=== PATIENT | male | born 1950 | race Caucasian/White ===

== ENCOUNTER → 2016-06-10 | Outpatient (CLI) | payer BC ==
[~2016-06-10] MED LIST: ALLO300T2 PO; CIPR-255 PO; FLAX12003 PO; GLC500 PO; HYDR-5688 PO; LISI-788 PO
[2016-06-10 12:33] LABS: ALT/SGPT 159 U/L (12-78); AST/SGOT 100 U/L (15-37); BLOOD UREA NITROGEN 14 mg/dl (7-18); BUN/CREATININE RATIO 15.3 (10-20); CARBON DIOXIDE 29 mmol/L (21-32); CHLORIDE 100 mmol/L (98-107); CHOLESTEROL 166 mg/dl (0-200); CREATININE 0.93 mg/dl (0.60-1.40); GLUCOSE 186 mg/dl (70-99); POTASSIUM 3.8 mmol/L (3.5-5.1); SODIUM 137 mmol/L (136-145); TRIGLYCERIDES 362 mg/dl (0-150); URIC ACID 6.7 mg/dl (2.6-7.2); VERY LOW DENSITY LIPOPROT CALC 72 mg/dl
[2016-06-10 12:35] LABS: ALB/GLOB RATIO 1.3 (0.9-2); ALKALINE PHOSPHATASE 139 U/L (45-117); CHOLESTEROL/HDL RATIO 3.7; HDL CHOLESTEROL 45 mg/dl; LDL CHOLESTEROL CALCULATED 49 mg/dl
[2016-06-10 12:39] LABS: CALCIUM 10.2 mg/dl (8.5-10.1)
[2016-06-10 13:06] LABS: ESTIMATED AVERAGE GLUCOSE 160 mg/dl; HA1C FLAG Normal (Normal)
== END | disposition home or self-care (01) ==
LOC: C.LABPVFM 09:24
PROVIDERS: ATTEND Family Medicine
DX: M10.9 Gout, unspecified (principal); E78.5 Hyperlipidemia, unspecified; R73.01 Impaired fasting glucose; I10 Essential (primary) hypertension

== ENCOUNTER 2016-07-04 14:52 | Inpatient (IN) | payer BC ==
[~2016-07-04] VITALS: Ht 167.6 cm; Wt 103.4 kg
[2016-07-04] MEDS ORDERED: ALLO300T2 PO (15:19)
[2016-07-04] MEDS ORDERED: LISI-788 PO (15:19)
[2016-07-04] MEDS ORDERED: GLC500 PO (15:19)
[2016-07-04] MEDS ORDERED: FLAX12003 PO (15:19)
[2016-07-04 15:22] LABS: BASO % 0.5 %; BASO ABS # 0.05 K/uL (0-0.2); COMPLETE YES; EOS % 2.4 %; HEMATOCRIT 38.5 % (42-52); IG% 0.3 %; LYMPH % 18.7 %; MEAN CELL VOLUME 88.7 fL (80-100); MEAN CORPUSCULAR HEMOGLOBIN 33.2 pg (25-34); MEAN CORPUSCULAR HGB CONC 37.4 g/dl (32-36); MEAN PLATELET VOLUME 9.7 fL (7.4-10.4); MONO % 8.8 %; NEUT % 69.3 %; PLATELET COUNT 410 K/uL (130-400); RED BLOOD COUNT 4.34 M/uL (4.7-6.1); WHITE BLOOD COUNT 10.16 K/uL (4.8-10.8)
[2016-07-04] MEDS ORDERED: SODIUM CHLORIDE 0.9% 500ML 500 ML IV STA (15:27)
[2016-07-04] MEDS ORDERED: SODIUM CHLORIDE 0.9% 1000ML 1,000 ML IV STA (15:27)
[2016-07-04] MEDS ORDERED: OPTIRAY 320 IV PRN (16:00)
[2016-07-04 16:07] LABS: BUN/CREATININE RATIO 18.7 (10-20); CALCIUM 10.1 mg/dl (8.5-10.1); CREATININE 1.2 mg/dl (0.60-1.40); POTASSIUM 3.1 mmol/L (3.5-5.1)
--- NOTE | 2016-07-04 18:33 | DIAGNOSTIC IMAGING REPORT ---
ABDOMEN AND PELVIS CT WITH IV AND ORAL CONTRAST CT DOSE: 1329.04 mGy.cm HISTORY: painless jaundice TECHNIQUE: Multiaxial CT images of the abdomen and pelvis were performed following the use of intravenous and oral contrast. COMPARISON STUDY: None. FINDINGS: The lung bases are clear. No suspicious lytic or blastic osseous lesions. No hepatic or splenic masses. The adrenal glands are unremarkable. Normal left kidney. Subcentimeter hypodense lesion within the lower pole of the right kidney is too small to characterize. No hydronephrosis. There is an irregular hypodense area at the pancreatic head/neck which measures approximately 2.6 x 2.5 cm. There is abrupt caliber change of both the common bile duct and main pancreatic duct with proximal dilatation. There is also mild intrahepatic bile duct dilatation. Therefore, this is consistent with a pancreatic mass. This results in mild narrowing of the portal splenic confluence with approximately 50% encasement. The pancreatic tail is slightly atrophic. The gallbladder is distended. No gallbladder wall thickening. There are few mildly enlarged periportal/peripancreatic lymph nodes. Dominant lymph node measures 16 mm in short axis diameter. Small fat-containing umbilical hernia. The bladder is distended. No bowel wall thickening or obstruction. Normal appendix. IMPRESSION: 1. A 2.8 x 2.5 cm mass within the pancreatic head as described above. 2. There are 2 mildly enlarged periportal/peripancreatic lymph nodes which are highly suspicious for metastatic disease. 3. No hepatic masses. 4. Dilatation of the main pancreatic duct and common bile duct proximal to the pancreatic head mass. There is also a distended gallbladder. 5. Distended bladder. 6. The mass demonstrates approximately 50% encasement and mild narrowing of the portal splenic confluence. Electronically signed by: Reinier Little M.D. 07/04/2016 6:32 PM Dictated Date/Time: 07/04/2016 6:24 PM
[2016-07-04 20:04] LABS: URINE APPEARANCE CLEAR (CLEAR); URINE COLOR DK YELLOW; URINE NITRITE NEG (NEG); URINE PH 5.5 (4.5-7.5); URINE SPECIFIC GRAVITY 1.038 (1.000-1.030); UROBILINOGEN NEG (NEG); ZZUR CULT IF INDIC CLEAN CATCH NO
[2016-07-04 20:17] LABS: MANUAL MICROSCOPIC REQUIRED? NO; REVIEW REQ? NO; URINE BILIRUBIN 2+ (NEG)
[2016-07-04] MEDS ORDERED: PIPERACILLIN/TAZOBACTAM 4.5 GM/100ML D5W IV STA (20:33)
--- NOTE | 2016-07-04 22:27 | EMERGENCY ROOM VISIT NOTE ---
History Report prepared by Zia: Flor Christopher Under the Supervision of: Dr. Alessandro Begum M.D. First contact with patient: 14:59 Chief Complaint: REFERRED BY DOCTOR Stated Complaint: ELEVATED LIVER ENZYMES, JAUNDICE History of Present Illness The patient is a 66 year old male who presents to the Emergency Room with complaints of a sudden referral by his PCP that occurred [employer]. The patient saw his PCP and had blood work drawn. The blood work showed that his liver enzymes were elevated. His PCP called him and told him to come into the ED for further evaluation. The patient states that he first noticed he was jaundice one week ago, but really noticed scleral icterus 3 days ago. 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 Pt denies LOC, headache, fevers, chills, diaphoresis, visual changes , neck pain, chest pain, breathing difficulties, nausea, vomiting, abdominal pain, back pain, melena, hematochezia, urinary symptoms, numbness, weakness, lymphadenopathy, rash, or other complaints. He states that he has been trying to change his lifestyle to be healthier. The patient also recently started Metformin. He states that he has been watching his diet and that he is trying to stay away from sugar and bread. The patient also states that he has been walking and making sure to drink plenty of fluids. He has lost 20 lbs in the last 2 weeks. The patient has no complaints and states that this is the best that he has felt in a long time. The patient helps the [employer] for work, so he drives long distances quite frequently. He states that he got home from [place] 3 days ago in the morning and then left for [place] that evening. The patient denies using Tylenol recently and states that he tries to avoid medications. 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 A total of ten systems were reviewed and were otherwise negative. Past Medical & Surgical Surgical Problems: (1) History of hernia repair Family History No significant family history Social History Smoking Status: Never Smoker Marital Status: Housing Status: lives with family Occupation Status: employed Current/Historical Medications Scheduled Allopurinol (Zyloprim), 300 MG PO DAILY Flaxseed (Linseed) (Flaxseed Oil), 1 CAP PO DAILY Lisinopril/Hctz (Zestoretic 20MG/25MG), 1 TAB PO DAILY Metformin HCl (Metformin HCl), 1 TAB PO BID Allergies Coded Allergies: No Known Allergies (Unverified , 07/04/16) Physical Exam Vital Signs Date Time Temp Pulse Resp B/P Pulse Ox O2 Delivery O2 Flow Rate FiO2 07/04/16 21:20 68 18 137/78 95 Room Air 07/04/16 20:53 67 07/04/16 20:35 68 18 141/78 95 Room Air 07/04/16 20:04 64 18 138/81 95 Room Air 07/04/16 19:04 68 18 182/96 94 Room Air 07/04/16 18:25 68 20 149/85 95 Room Air 07/04/16 17:57 72 18 146/99 96 Room Air 07/04/16 16:37 66 16 130/82 94 Room Air 07/04/16 16:12 67 07/04/16 14:57 36.7 81 16 138/79 95 Room Air Physical Exam GENERAL: Awake, alert, well-appearing, in no distress HENT: Normocephalic, atraumatic. Oropharynx unremarkable. EYES: Normal conjunctiva. Sclera are icteric. NECK: Supple. No nuchal rigidity. FROM. No JVD. RESPIRATORY: Clear to auscultation. CARDIAC: Regular rate, normal rhythm. Extremities warm and well perfused. Pulses equal. ABDOMEN: Soft, non-distended. No tenderness to palpation. No rebound or guarding. No masses. RECTAL: Deferred. MUSCULOSKELETAL: Chest examination reveals no tenderness. The back is symmetrical on inspection without obvious abnormality. There is no CVA tenderness to palpation. No joint edema. LOWER EXTREMITIES: Calves are equal size bilaterally and non-tender. No edema. No discoloration. NEURO: Normal sensorium. No sensory or motor deficits noted. SKIN: Jaundice. No rash noted. Medical Decision & Procedures ER Provider Diagnostic Interpretation: Radiology results as stated below per my review and radiologist interpretation ABDOMEN AND PELVIS CT WITH IV AND ORAL CONTRAST FINDINGS: The lung bases are clear. No suspicious lytic or blastic osseous lesions. No hepatic or splenic masses. The adrenal glands are unremarkable. Normal left kidney. Subcentimeter hypodense lesion within the lower pole of the right kidney is too small to characterize. No hydronephrosis. There is an irregular hypodense area at the pancreatic head/neck which measures approximately 2.6 x 2.5 cm. There is abrupt caliber change of both the common bile duct and main pancreatic duct with proximal dilatation. There is also mild intrahepatic bile duct dilatation. Therefore, this is consistent with a pancreatic mass. This results in mild narrowing of the portal splenic confluence with approximately 50% encasement. The pancreatic tail is slightly atrophic. The gallbladder is distended. No gallbladder wall thickening. There are few mildly enlarged periportal/peripancreatic lymph nodes. Dominant lymph node measures 16 mm in short axis diameter. Small fat-containing umbilical hernia. The bladder is distended. No bowel wall thickening or obstruction. Normal appendix. IMPRESSION: 1. A 2.8 x 2.5 cm mass within the pancreatic head as described above. 2. There are 2 mildly enlarged periportal/peripancreatic lymph nodes which are highly suspicious for metastatic disease. 3. No hepatic masses. 4. Dilatation of the main pancreatic duct and common bile duct proximal to the pancreatic head mass. There is also a distended gallbladder. 5. Distended bladder. 6. The mass demonstrates approximately 50% encasement and mild narrowing of the portal splenic confluence. Electronically signed by: Reinier Little M.D. 07/04/2016 6:32 PM Dictated Date/Time: 07/04/2016 6:24 PM Laboratory Results 07/04/16 15:09 Red Blood Count 4.34, Mean Corpuscular Volume 88.7, Mean Corpuscular Hemoglobin 33.2, Mean Corpuscular Hemoglobin Concent 37.4, Mean Platelet Volume 9.7, Neutrophils (%) (Auto) 69.3, Lymphocytes (%) (Auto) 18.7, Monocytes (%) (Auto) 8.8, Eosinophils (%) (Auto) 2.4, Basophils (%) (Auto) 0.5, Neutrophils # (Auto) 7.05, Lymphocytes # (Auto) 1.90, Monocytes # (Auto) 0.89, Eosinophils # (Auto) 0.24, Basophils # (Auto) 0.05 07/04/16 15:09 Test 07/04/16 15:09 07/04/16 15:19 07/04/16 19:50 07/04/16 21:49 White Blood Count 10.16 K/uL (4.8-10.8) Red Blood Count 4.34 M/uL (4.7-6.1) Hemoglobin 14.4 g/dL (14.0-18.0) Hematocrit 38.5 % (42-52) Mean Corpuscular Volume 88.7 fL (80-100) Mean Corpuscular Hemoglobin 33.2 pg (25-34) Mean Corpuscular Hemoglobin Concent 37.4 g/dl (32-36) Platelet Count 410 K/uL (130-400) Mean Platelet Volume 9.7 fL (7.4-10.4) Neutrophils (%) (Auto) 69.3 % Lymphocytes (%) (Auto) 18.7 % Monocytes (%) (Auto) 8.8 % Eosinophils (%) (Auto) 2.4 % Basophils (%) (Auto) 0.5 % Neutrophils # (Auto) 7.05 K/uL (1.4-6.5) Lymphocytes # (Auto) 1.90 K/uL (1.2-3.4) Monocytes # (Auto) 0.89 K/uL (0.11-0.59) Eosinophils # (Auto) 0.24 K/uL (0-0.5) Basophils # (Auto) 0.05 K/uL (0-0.2) RDW Standard Deviation 45.7 fL (36.4-46.3) RDW Coefficient of Variation 13.9 % (11.5-14.5) Immature Granulocyte % (Auto) 0.3 % Immature Granulocyte # (Auto) 0.03 K/uL (0.00-0.02) Anion Gap 12.0 mmol/L (3-11) Est Creatinine Clear Calc Drug Dose 69.7 ml/min Estimated GFR () 73.6 Estimated GFR (Non- 63.5 BUN/Creatinine Ratio 18.7 (10-20) Calcium Level 10.1 mg/dl (8.5-10.1) Total Bilirubin 20.1 mg/dl (0.2-1) Direct Bilirubin 15.1 mg/dl (0-0.2) Aspartate Amino Transf (AST/SGOT) 186 U/L (15-37) Alanine Aminotransferase (ALT/SGPT) 468 U/L (12-78) Alkaline Phosphatase 431 U/L (45-117) Total Protein 7.3 gm/dl (6.4-8.2) Albumin 3.7 gm/dl (3.4-5.0) Lipase 580 U/L (73-393) Hepatitis B Surface Antigen NEG (NEG) Hepatitis C Antibody NEG (NEG) Urine Color DK YELLOW Urine Appearance CLEAR (CLEAR) Urine pH 5.5 (4.5-7.5) Urine Specific [place] 1.038 (1.000-1.030) Urine Protein NEG (NEG) Urine Glucose (UA) NEG (NEG) Urine Ketones NEG (NEG) Urine Occult Blood NEG (NEG) Urine Nitrite NEG (NEG) Urine Bilirubin 2+ (NEG) Urine Urobilinogen NEG (NEG) Urine Leukocyte Esterase NEG (NEG) Laboratory results reviewed by me Medications Administered Medications (Trade) Dose Ordered Sig/Nancy Route Start Time Stop Time Status Last Admin Dose Admin Sodium Chloride 1,000 ml @ 125 mls/hr Q8H STAT IV 07/04/16 15:27 07/04/16 23:26 07/04/16 15:27 125 MLS/HR Sodium Chloride (Nss 500ml) 500 ml @ 999 mls/hr Q31M STAT IV 07/04/16 15:27 07/04/16 15:57 DC 07/04/16 15:27 999 MLS/HR Piperacillin Sod/ Tazobactam Sod (Zosyn Iv) 4.5 gm NOW STAT IV 07/04/16 20:33 07/04/16 20:34 DC 07/04/16 20:40 4.5 GM ED Course 1525: The patient was evaluated in room C11. A complete history and physical exam was performed. 1527: Ordered Sodium Chloride 500 ml @ 999 mls/hr IV, Sodium Chloride 1000 ml @ 125 mls/hr IV 1908: Discussed the patient's case with Dr. Jarvis ABRAHAM. He recommends admitting the patient to medicine. He also recommends starting the patient on antibiotics and [facility]. 2018: Upon reexamination, the patient was resting comfortably. I discussed the test results and treatment plan with the patient and his family. The patient will be evaluated for further management. 2032: Ordered Zosyn 4.5 gm IV Medical Decision Triage Nursing notes reviewed. The patient's presentation and history were concerning for jaundice. Etiologies such as biliary pathology, pancreatitis, cholecystitis, medication induced, hepatitis, obstruction, PUD, mesenteric ischemia, infections, genitourinary, as well as others were entertained. The patient presents with painless jaundice. He had blood work obtained. CT imaging was performed. Patient was found to have an unremarkable CBC. He is minimally hypokalemic. Total bili, AST, ALT, lipase, and alkaline phosphatase were all markedly elevated. CT imaging revealed a pancreatic mass and obstructive findings. This is concerning for cancer. I discussed this with the patient and family at length. I did discuss this case with Dr. salcedo of gastroenterology. He recommended the patient be admitted for IV antibiotics and he will discuss the issue with [facility] gastroenterology for possible ERCP and EUS. Consultation was made with internal medicine. The patient was given IV Zosyn. He was hydrated. The patient was evaluated in the emergency department for further management of his obstructive jaundice and pancreatic mass. The chart was completed utilizing [employer] Speech voice recognition software. Grammatical errors, random word insertions, pronoun errors, and incomplete sentences are an occasional consequence of this system due to software limitations, ambient noise, and hardware issues. Any formal questions or concerns about the content, text, or information contained within the body of this dictation should be directly addressed to the physician for clarification. Consults Time Called: 1904 Consulting Physician: Dr. Jarvis ABRAHAM Returned Call: 1907 Discussed the patient's case with Dr. Jarvis ABRAHAM. He recommends starting the patient on antibiotics and he is going to call [facility] to setup an endoscopy for the patient. Additional Consults: Time Called: 2021 Consulted Physician: Dr. Heck Impression Primary Impression: Obstructive jaundice Additional Impression: Pancreatic mass Scribe Attestation The scribe's documentation has been prepared under my direction and personally reviewed by me in its entirety. I confirm that the note above accurately reflects all work, treatment, procedures, and medical decision making performed by me. Departure Information Dispostion Being Evaluated By Hospitalist Referrals Bailee Castellon M.D. (PCP) Patient Instructions My [facility] Problem Qualifiers
[2016-07-04] MEDS ORDERED: DEXTROSE 50% 50 ML SYR IV PRN (23:00)
[2016-07-04] MEDS ORDERED: GLUCOSE 10 TABS/TUBE PO PRN (23:00)
[2016-07-04] MEDS ORDERED: ONDANSETRON INJ 2 MG/ML 2 ML VIAL IV PRN (23:00)
[2016-07-04] MEDS ORDERED: GLUCOSE 40% GEL 15 GM TUBE PO PRN (23:00)
[2016-07-04] MEDS ORDERED: GLUCAGON FOR INJ 1 MG VIAL SQ PRN (23:00)
[2016-07-04 23:18] LABS: MAGNESIUM 2.3 mg/dl (1.8-2.4)
--- NOTE | 2016-07-04 23:26 | History and Physical ---
History & Physical Date & Time of Service: July 04, 2016 at 23:26 Chief Complaint: Elevated Liver Enzymes, Jaundice Primary Care Physician: Bailee Castellon M.D. History of Present Illness Source: patient, family The patient is a 66-year-old male who presents to the emergency department after referral from his PCP when outpatient blood work showed elevated liver enzymes. Patient noticed that he was became jaundiced about one week ago that is eyes turned yellow 3 days ago. He reports that recently he has been trying to be healthier lifestyle, and recently was started on metformin. He has lost 20 pounds in the past 2 weeks, and reports that this is the best she's felt a long time. 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 He has not had any sick exposures that he is aware of, and has no recent use of Tylenol. Past Medical/Surgical History Surgical Problems: (1) History of hernia repair Status: Chronic Family History No significant family history Social History Smoking Status: Never Smoker Smokeless Tobacco Use: No Alcohol Use: none Drug Use: none Marital Status: Housing status: lives with family Occupational Status: employed Multi-Drug Resistant Organisms History of MDRO: No Allergies Coded Allergies: No Known Allergies (Unverified , 07/04/16) Home Medications Scheduled Allopurinol (Zyloprim), 300 MG PO DAILY Flaxseed (Linseed) (Flaxseed Oil), 1 CAP PO DAILY Lisinopril/Hctz (Zestoretic 20MG/25MG), 1 TAB PO DAILY Metformin HCl (Metformin HCl), 1 TAB PO BID Review of Systems The patient denies chest pain, palpitations, shortness of breath, cough, lower extremity swelling, vision change, hearing change, sore throat, fevers, chills, sweats, fatigue, nausea, vomiting, abdominal pain, pelvic pain, blood in urine or stool, dysuria, urinary frequency or urgency, lightheadedness, dizziness, headache, memory loss, abnormal bruising or bleeding, imbalance, focal or generalized weakness, numbness or tingling in arms or legs, arthralgias or myalgias, back or neck pain, night sweats, or allergy symptoms. The review of systems is otherwise negative other than for that already noted above, and at least 10 systems have been reviewed. Physical Exam Vital Signs Date Time Temp Pulse Resp B/P Pulse Ox O2 Delivery O2 Flow Rate FiO2 07/04/16 23:18 63 18 150/81 98 Room Air 07/04/16 21:20 68 18 137/78 95 Room Air 07/04/16 20:53 67 07/04/16 20:35 68 18 141/78 95 Room Air 07/04/16 20:04 64 18 138/81 95 Room Air 07/04/16 19:04 68 18 182/96 94 Room Air 07/04/16 18:25 68 20 149/85 95 Room Air 07/04/16 17:57 72 18 146/99 96 Room Air 07/04/16 16:37 66 16 130/82 94 Room Air 07/04/16 16:12 67 07/04/16 14:57 36.7 81 16 138/79 95 Room Air The patient is awake, appears jaundiced, alert and oriented 3, normocephalic and atraumatic, lying in bed and in no acute distress. HEENT--PERRL, EOMI, mucous membranes and oropharynx dry. Neck--supple, no JVD or bruits, thyroid normal, trachea midline, no adenopathy. Heart--normal S1 and S2, no extra beats, no murmurs, rubs or gallops. Lungs--clear bilaterally with good air movement, no respiratory distress, no accessory muscle use. Abdomen--normal bowel sounds and soft, nontender and nondistended, no hernias or masses, no organomegaly, and obese. Extremities--no cyanosis, clubbing or edema. There are good distal pulses b/l. Dermatologic--normal skin turgor, jaundiced throughout. Neurologic--cranial nerves II through XII grossly intact, motor and sensory examination normal. Rheumatologic--normal range of motion, nontender, muscles and joints. Psychiatric--normal affect. Diagnostics Laboratory Results Results Past 24 Hours Test 07/04/16 15:09 07/04/16 15:19 07/04/16 19:50 07/04/16 22:20 Range/Units White Blood Count 10.16 4.8-10.8 K/uL Red Blood Count 4.34 4.7-6.1 M/uL Hemoglobin 14.4 14.0-18.0 g/dL Hematocrit 38.5 42-52 % Mean Corpuscular Volume 88.7 80-100 fL Mean Corpuscular Hemoglobin 33.2 25-34 pg Mean Corpuscular Hemoglobin Concent 37.4 32-36 g/dl Platelet Count 410 130-400 K/uL Mean Platelet Volume 9.7 7.4-10.4 fL Neutrophils (%) (Auto) 69.3 % Lymphocytes (%) (Auto) 18.7 % Monocytes (%) (Auto) 8.8 % Eosinophils (%) (Auto) 2.4 % Basophils (%) (Auto) 0.5 % Neutrophils # (Auto) 7.05 1.4-6.5 K/uL Lymphocytes # (Auto) 1.90 1.2-3.4 K/uL Monocytes # (Auto) 0.89 0.11-0.59 K/uL Eosinophils # (Auto) 0.24 0-0.5 K/uL Basophils # (Auto) 0.05 0-0.2 K/uL RDW Standard Deviation 45.7 36.4-46.3 fL RDW Coefficient of Variation 13.9 11.5-14.5 % Immature Granulocyte % (Auto) 0.3 % Immature Granulocyte # (Auto) 0.03 0.00-0.02 K/uL Sodium Level 132 136-145 mmol/L Potassium Level 3.1 3.5-5.1 mmol/L Chloride Level 94 98-107 mmol/L Carbon Dioxide Level 26 21-32 mmol/L Anion Gap 12.0 3-11 mmol/L Blood Urea Nitrogen 22 7-18 mg/dl Creatinine 1.20 0.60-1.40 mg/dl Est Creatinine Clear Calc Drug Dose 69.7 ml/min Estimated GFR () 73.6 Estimated GFR (Non- 63.5 BUN/Creatinine Ratio 18.7 10-20 Random Glucose 156 70-99 mg/dl Calcium Level 10.1 8.5-10.1 mg/dl Magnesium Level 2.3 1.8-2.4 mg/dl Total Bilirubin 20.1 0.2-1 mg/dl Direct Bilirubin 15.1 0-0.2 mg/dl Aspartate Amino Transf (AST/SGOT) 186 15-37 U/L Alanine Aminotransferase (ALT/SGPT) 468 12-78 U/L Alkaline Phosphatase 431 45-117 U/L Total Protein 7.3 6.4-8.2 gm/dl Albumin 3.7 3.4-5.0 gm/dl Lipase 580 73-393 U/L Hepatitis B Surface Antigen NEG NEG Hepatitis C Antibody NEG NEG Urine Color DK YELLOW Urine Appearance CLEAR CLEAR Urine pH 5.5 4.5-7.5 Urine Specific [place] 1.038 1.000-1.030 Urine Protein NEG NEG Urine Glucose (UA) NEG NEG Urine Ketones NEG NEG Urine Occult Blood NEG NEG Urine Nitrite NEG NEG Urine Bilirubin 2+ NEG Urine Urobilinogen NEG NEG Urine Leukocyte Esterase NEG NEG Prothrombin Time 11.0 9.0-12.0 SECONDS Prothromb Time International Ratio 1.0 0.9-1.1 Diagnostic Radiology Patient Name: ANTWAN BOWER Unit Number: [id number] Dictated: 07/04/161823 Transcribed: 07/04/161823 [facility] book Printed Date/Time: [~ rep prt dt]/[~ rep prt tm] [~ rep ct labl] - [~ rep ct ivnm] [facility] [place] [address] Dictated: 07/04/161823 Transcribed: 07/04/161823 [place] book Printed Date/Time: [~ rep prt dt]/[~ rep prt tm] [~ rep ct labl] - [~ rep ct ivnm] ABDOMEN AND PELVIS CT WITH IV AND ORAL CONTRAST CT DOSE: 1329.04 mGy.cm HISTORY: painless jaundice TECHNIQUE: Multiaxial CT images of the abdomen and pelvis were performed following the use of intravenous and oral contrast. COMPARISON STUDY: None. FINDINGS: The lung bases are clear. No suspicious lytic or blastic osseous lesions. No hepatic or splenic masses. The adrenal glands are unremarkable. Normal left kidney. Subcentimeter hypodense lesion within the lower pole of the right kidney is too small to characterize. No hydronephrosis. There is an irregular hypodense area at the pancreatic head/neck which measures approximately 2.6 x 2.5 cm. There is abrupt caliber change of both the common bile duct and main pancreatic duct with proximal dilatation. There is also mild intrahepatic bile duct dilatation. Therefore, this is consistent with a pancreatic mass. This results in mild narrowing of the portal splenic confluence with approximately 50% encasement. The pancreatic tail is slightly atrophic. The gallbladder is distended. No gallbladder wall thickening. There are few mildly enlarged periportal/peripancreatic lymph nodes. Dominant lymph node measures 16 mm in short axis diameter. Small fat-containing umbilical hernia. The bladder is distended. No bowel wall thickening or obstruction. Normal appendix. IMPRESSION: 1. A 2.8 x 2.5 cm mass within the pancreatic head as described above. 2. There are 2 mildly enlarged periportal/peripancreatic lymph nodes which are highly suspicious for metastatic disease. 3. No hepatic masses. 4. Dilatation of the main pancreatic duct and common bile duct proximal to the pancreatic head mass. There is also a distended gallbladder. 5. Distended bladder. 6. The mass demonstrates approximately 50% encasement and mild narrowing of the portal splenic confluence. Electronically signed by: Reinier Little M.D. 07/04/2016 6:32 PM Dictated Date/Time: 07/04/2016 6:24 PM The status of this report is Signed. Draft = Not yet reviewed or approved by Radiologist. Signed = Reviewed and approved by Radiologist. <AttendingPhy></AttendingPhy> <FamilyPhy>Bailee Castellon M.D.</FamilyPhy > <PrimaryPhy>Bailee Castellon M.D.</PrimaryPhy> <UnitNumber>[id number]</ UnitNumber> <VisitNumber>[id number]</VisitNumber> <PatientName>ANTWAN BOWER</ PatientName> <DateOfBirth>1950</DateOfBirth> <Location>[facility]</Location> < ServiceDate>07/04/16</ServiceDate> <MNE>ESINDI</MNE> <OrderingPhy>Alessandro Begum MD</OrderingPhy> <OrderingPhyMNE>f rep ord dr con[facility]</OrderingPhyMNE> < DictatingPhyMNE>f rep dict dr conway</DictatingPhyMNE> <CCListMNE>f rep ct [place]</ CCListMNE> <AdmittingPhyMNE>f pt admit dr conway</AdmittingPhyMNE> <AttendingPhyMNE >f pt attend dr conway</AttendingPhyMNE> <ConsultingPhyMNE>f pt consult dr conway</ConsultingPhyMNE> <FamilyPhyMNE>f pt fam dr conway</FamilyPhyMNE> <OtherPhyMNE>f pt other dr conway</OtherPhyMNE> < PrimaryPhyMNE>f pt prim care dr conway</PrimaryPhyMNE> <ReferringPhyMNE>f pt referring dr conway</ReferringPhyMNE> Impression Assessment and Plan 2.8 x 2.7 cm pancreatic head mass/ enlarged periportal peripancreatic lymph nodes suspicious for metastatic disease/dilated common bile duct and main pancreatic duct/ 50% encasement and mild narrowing of portal splenic confluence- -the patient will be admitted to the medical surgical floor, and will be kept nothing by mouth. We'll order an MRCP tonight, and consult gastroenterology for possible ERCP tomorrow. We'll also consult oncology. We will follow serial CBC with differential, chemistry profile, amylase and lipase. Hyponatremia/hypokalemia/mild dehydration--placed on normal saline with KCl 20 mEq at 100 mils per hour. Follow repeat laboratories in the a.m. Diabetes mellitus--hold metformin, place on Accu-Cheks before meals and at bedtime with NovoLog coverage scale. Gout--hold allopurinol while NPO. Hypertension--hold lisinopril/HCTZ, as blood pressure is relatively low at this time. Level of Care Med/Surg Advanced Directives Existing Advance Directive: No Existing Living Will: No Existing Power of Direct Service Worker: No Resuscitation Status FULL RESUSCITATION VTE Prophylaxis VTE Risk Assessment Done? Y/N: Yes Risk Level: Moderate Given or contraindicated: SCD's Social Service Consult None Apply
[2016-07-05] VITALS (7 sets, daily range): BP systolic 105–150; BP diastolic 63–93; PULSE 60–84; TEMP 36.4–37.1; O2SAT 94–97; Ht 167.6 cm; Wt 103.4 kg
[2016-07-05] MEDS: NSS + 20MEQ KCL 1000ML 1,000 ML IV SCH ×3 (01:54→21:32)
--- NOTE | 2016-07-05 06:20 | DIAGNOSTIC IMAGING REPORT ---
MRCP MRCP CLINICAL HISTORY: NEW PANCREATIC MASS ON CT pancreatic mass TECHNIQUE: Multi axial MRI. COMPARISON STUDY: CT 07/04/2016 FINDINGS: Fullness of the pancreatic head approximately 2.5 cm. Distention of the pancreatic duct to 6 mm. Moderate distention of the biliary ductal system. Gallbladder slightly distended. Several nodes adjacent to the pancreatic head and uncinate process measuring 1.5. Vascular components are patent. Potential vascular encasement of the superior portal vein. Liver is uniform. Spleen is uniform. Kidneys negative for hydronephrosis. Bowel pattern is considered nonobstructive. IMPRESSION: High probability of a 2.5 cm pancreatic head mass with secondary distention of the biliary and pancreatic ductal systems. 2. Several suspicious surrounding peripancreatic nodes. 3. Although the study is unenhanced, with suboptimal visibility of the pancreatic head mass, all secondary findings are suspect for a pancreatic neoplasm. Electronically signed by: Jerad Jha M.D. 07/05/2016 6:18 AM Dictated Date/Time: 07/05/2016 6:09 AM
[2016-07-05 06:21] LABS: BASO % 0.6 %; BASO ABS # 0.05 K/uL (0-0.2); COMPLETE YES; EOS % 3.6 %; HEMATOCRIT 34.7 % (42-52); IG% 0.1 %; LYMPH % 26.6 %; LYMPH ABS # 2.09 K/uL (1.2-3.4); MEAN CELL VOLUME 89.9 fL (80-100); MEAN CORPUSCULAR HEMOGLOBIN 32.4 pg (25-34); MEAN PLATELET VOLUME 9.9 fL (7.4-10.4); MONO % 5.6 %; NEUT % 63.5 %; PLATELET COUNT 336 K/uL (130-400); RED BLOOD COUNT 3.86 M/uL (4.7-6.1); WHITE BLOOD COUNT 7.87 K/uL (4.8-10.8)
[2016-07-05 06:27] LABS: PARTIAL THROMBOPLASTIN RATIO 1.1; PROTHROMBIN TIME (PATIENT) 11.1 SECONDS (9.0-12.0)
[2016-07-05 07:15] LABS: BUN/CREATININE RATIO 17.3 (10-20); CREATININE 0.92 mg/dl (0.60-1.40); MAGNESIUM 2.3 mg/dl (1.8-2.4); POTASSIUM 2.9 mmol/L (3.5-5.1)
[2016-07-05] MEDS ORDERED: POTASSIUM CHLR 20 MEQ / WTR 20 MEQ in PREMIXED WATER 100 ML IV STA (07:41)
[2016-07-05] MEDS ORDERED: FENTANYL CITRATE INJ 50 MCG/1 ML 2 ML VIAL ONE (07:42)
[2016-07-05] MEDS ORDERED: PROPOFOL IV EMULSION 10 MG/ML 20 ML VIAL IV ONE ×2 (07:42→09:04)
[2016-07-05] MEDS ORDERED: LIDOCAINE HCL 2% 2 ML VIAL (20MG/ML) ONE (07:42)
[2016-07-05] MEDS ORDERED: MIDAZOLAM HCL 1 MG/ML 2ML VIAL ONE (07:42)
[2016-07-05] MEDS ORDERED: ROCURONIUM BROMIDE 10 MG/ML 5 ML VIAL ONE (07:42)
[2016-07-05] MEDS ORDERED: ONDANSETRON INJ 2 MG/ML 2 ML VIAL ONE (07:42)
[2016-07-05] MEDS ORDERED: DEXAMETHASONE SOD INJ 4 MG/ML VIAL ONE (07:42)
[2016-07-05] MEDS ORDERED: SUCCINYLCHOLINE 100MG/5ML SYR IV ONE (07:42)
[2016-07-05] MEDS ORDERED: INDOMETHACIN 50 MG SUPP PR ONE ×3 (07:55→08:45)
[2016-07-05] MEDS ORDERED: FENTANYL CITRATE INJ 50 MCG/1 ML 2 ML VIAL IV PRN (08:00)
[2016-07-05] MEDS ORDERED: ONDANSETRON INJ 2 MG/ML 2 ML VIAL IV PRN (08:00)
[2016-07-05] MEDS ORDERED: EpHEDrine SULFATE INJ 50 MG/ML AMP IV PRN (08:00)
[2016-07-05] MEDS ORDERED: HYDROmorphone INJ 1 MG/ML SYR IV PRN (08:00)
[2016-07-05] MEDS ORDERED: ATROPINE SULFATE 0.1 MG/ML 5ML SYR IV PRN (08:00)
[2016-07-05] MEDS: INSULIN ASPART 100 UNITS/ML 3 ML PEN SC SCH ×4 (08:13→21:00)
--- NOTE | 2016-07-05 08:13 | Gastrointestinal Consultation ---
Gastrointestinal Consultation Date of Consultation: July 05, 2016 Attending Physician: Dr. Spencer Consulting Physician: Dr. Debi Edwards Reason for Consultation: Jaundice History of Present Illness This is a 66 year old patient who presents to the emergency department after referral from his PCP when outpatient blood work showed elevated liver enzymes. Patient noticed that he was became jaundiced about 1 week ago. He reports that recently he has been trying to be healthier lifestyle, and recently was started on metformin after being found to have hyperglycemia. He has lost 20 pounds in the past 2 weeks and reports feeling otherwise well over the past few months. 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 Past Medical/Surgical History Medical Problems: (1) Obstructive jaundice Status: Acute (2) Pancreatic mass Status: Acute Surgical Problems: (1) History of hernia repair Status: Chronic Past Medical History: Diabetes Family History No significant family history Social History Smoking Status: Former Smoker Drug Use: none Marital Status: Housing Status: lives with family Occupation Status: employed Allergies Coded Allergies: No Known Allergies (Unverified , 07/04/16) Current Medications Home Meds and Scripts Medications Dose Route/Sig Max Daily Dose Days Date Category Zyloprim (Allopurinol) 300 Mg Tab 300 Mg PO DAILY 07/04/16 Reported Flaxseed Oil (Flaxseed (Linseed)) 1 Cap Cap 1 Cap PO DAILY 07/04/16 Reported Zestoretic 20MG/25MG (HCTZ/Lisinopril) Tab 1 Tab PO DAILY 07/04/16 Reported Metformin HCl 500 Mg Tab 1 Tab PO BID 07/04/16 Reported Review of Systems Constitutional: No chills, No fever Eyes: + eye pain, No redness, No worsening of vision ENT: No hearing loss, No sore throat, No trouble swallowing Respiratory: No cough, No dyspnea at rest, No wheezing Cardiac: No PND, No chest pain, No palpitations Abdomen: + see HPI, No dysphagia, No nausea, No vomiting Musculoskeletal: No calf pain, No joint pain, No muscle pain Male : No dysuria Neuro: No memory loss, No weakness Psych: No anxiety, No depression symptoms Heme: + see HPI, No abnormal bleeding/bruising, No clotting problems, No night sweats Endo: No excessive thirst, No excessive urination Skin: No rash + jaundice, + itching Physical Exam Date Time Temp Pulse Resp B/P Pulse Ox O2 Delivery O2 Flow Rate FiO2 07/05/16 07:22 36.6 67 18 129/88 96 Room Air 07/05/16 04:04 36.7 61 20 125/79 96 Room Air 07/05/16 01:00 37.1 64 16 143/84 94 Room Air 07/05/16 01:00 37.1 64 16 143/84 07/05/16 00:08 68 18 127/76 96 07/04/16 23:18 63 18 150/81 98 Room Air 07/04/16 21:20 68 18 137/78 95 Room Air 07/04/16 20:53 67 07/04/16 20:35 68 18 141/78 95 Room Air 07/04/16 20:04 64 18 138/81 95 Room Air 07/04/16 19:04 68 18 182/96 94 Room Air 07/04/16 18:25 68 20 149/85 95 Room Air 07/04/16 17:57 72 18 146/99 96 Room Air 07/04/16 16:37 66 16 130/82 94 Room Air 07/04/16 16:12 67 07/04/16 14:57 36.7 81 16 138/79 95 Room Air General Appearance: no apparent distress Eyes: PERRL Neck: supple, no JVD Respiratory/Chest: lungs clear Cardiovascular: regular rate, rhythm, no JVD Abdomen: soft, + tenderness (RUQ tender) Extremities: non-tender Neurologic/Psych: no motor/sensory deficits, alert, oriented x 3 Skin: + jaundice CT 07/04/16 FINDINGS: The lung bases are clear. No suspicious lytic or blastic osseous lesions. No hepatic or splenic masses. The adrenal glands are unremarkable. Normal left kidney. Subcentimeter hypodense lesion within the lower pole of the right kidney is too small to characterize. No hydronephrosis. There is an irregular hypodense area at the pancreatic head/neck which measures approximately 2.6 x 2.5 cm. There is abrupt caliber change of both the common bile duct and main pancreatic duct with proximal dilatation. There is also mild intrahepatic bile duct dilatation. Therefore, this is consistent with a pancreatic mass. This results in mild narrowing of the portal splenic confluence with approximately 50% encasement. The pancreatic tail is slightly atrophic. The gallbladder is distended. No gallbladder wall thickening. There are few mildly enlarged periportal/peripancreatic lymph nodes. Dominant lymph node measures 16 mm in short axis diameter. Small fat-containing umbilical hernia. The bladder is distended. No bowel wall thickening or obstruction. Normal appendix. IMPRESSION: 1. A 2.8 x 2.5 cm mass within the pancreatic head as described above. 2. There are 2 mildly enlarged periportal/peripancreatic lymph nodes which are highly suspicious for metastatic disease. 3. No hepatic masses. 4. Dilatation of the main pancreatic duct and common bile duct proximal to the pancreatic head mass. There is also a distended gallbladder. 5. Distended bladder. 6. The mass demonstrates approximately 50% encasement and mild narrowing of the portal splenic confluence. Laboratory Results Last 24 Hours Test 07/04/16 15:09 07/04/16 15:19 07/04/16 19:50 07/04/16 22:20 White Blood Count 10.16 K/uL Red Blood Count 4.34 M/uL Hemoglobin 14.4 g/dL Hematocrit 38.5 % Mean Corpuscular Volume 88.7 fL Mean Corpuscular Hemoglobin 33.2 pg Mean Corpuscular Hemoglobin Concent 37.4 g/dl Platelet Count 410 K/uL Mean Platelet Volume 9.7 fL Neutrophils (%) (Auto) 69.3 % Lymphocytes (%) (Auto) 18.7 % Monocytes (%) (Auto) 8.8 % Eosinophils (%) (Auto) 2.4 % Basophils (%) (Auto) 0.5 % Neutrophils # (Auto) 7.05 K/uL Lymphocytes # (Auto) 1.90 K/uL Monocytes # (Auto) 0.89 K/uL Eosinophils # (Auto) 0.24 K/uL Basophils # (Auto) 0.05 K/uL RDW Standard Deviation 45.7 fL RDW Coefficient of Variation 13.9 % Immature Granulocyte % (Auto) 0.3 % Immature Granulocyte # (Auto) 0.03 K/uL Sodium Level 132 mmol/L Potassium Level 3.1 mmol/L Chloride Level 94 mmol/L Carbon Dioxide Level 26 mmol/L Anion Gap 12.0 mmol/L Blood Urea Nitrogen 22 mg/dl Creatinine 1.20 mg/dl Est Creatinine Clear Calc Drug Dose 69.7 ml/min Estimated GFR () 73.6 Estimated GFR (Non- 63.5 BUN/Creatinine Ratio 18.7 Random Glucose 156 mg/dl Calcium Level 10.1 mg/dl Magnesium Level 2.3 mg/dl Total Bilirubin 20.1 mg/dl Direct Bilirubin 15.1 mg/dl Aspartate Amino Transf (AST/SGOT) 186 U/L Alanine Aminotransferase (ALT/SGPT) 468 U/L Alkaline Phosphatase 431 U/L Total Protein 7.3 gm/dl Albumin 3.7 gm/dl Lipase 580 U/L Hepatitis B Surface Antigen NEG Hepatitis C Antibody NEG Urine Color DK YELLOW Urine Appearance CLEAR Urine pH 5.5 Urine Specific [place] 1.038 Urine Protein NEG Urine Glucose (UA) NEG Urine Ketones NEG Urine Occult Blood NEG Urine Nitrite NEG Urine Bilirubin 2+ Urine Urobilinogen NEG Urine Leukocyte Esterase NEG Prothrombin Time 11.0 SECONDS Prothromb Time International Ratio 1.0 Test 07/05/16 05:58 White Blood Count 7.87 K/uL Red Blood Count 3.86 M/uL Hemoglobin 12.5 g/dL Hematocrit 34.7 % Mean Corpuscular Volume 89.9 fL Mean Corpuscular Hemoglobin 32.4 pg Mean Corpuscular Hemoglobin Concent 36.0 g/dl Platelet Count 336 K/uL Mean Platelet Volume 9.9 fL Neutrophils (%) (Auto) 63.5 % Lymphocytes (%) (Auto) 26.6 % Monocytes (%) (Auto) 5.6 % Eosinophils (%) (Auto) 3.6 % Basophils (%) (Auto) 0.6 % Neutrophils # (Auto) 5.00 K/uL Lymphocytes # (Auto) 2.09 K/uL Monocytes # (Auto) 0.44 K/uL Eosinophils # (Auto) 0.28 K/uL Basophils # (Auto) 0.05 K/uL RDW Standard Deviation 46.7 fL RDW Coefficient of Variation 14.1 % Immature Granulocyte % (Auto) 0.1 % Immature Granulocyte # (Auto) 0.01 K/uL Prothrombin Time 11.1 SECONDS Prothromb Time International Ratio 1.0 Activated Partial Thromboplast Time 27.6 SECONDS Partial Thromboplastin Ratio 1.1 Sodium Level 135 mmol/L Potassium Level 2.9 mmol/L Chloride Level 99 mmol/L Carbon Dioxide Level 28 mmol/L Anion Gap 8.0 mmol/L Blood Urea Nitrogen 16 mg/dl Creatinine 0.92 mg/dl Est Creatinine Clear Calc Drug Dose 90.6 ml/min Estimated GFR () 101.5 Estimated GFR (Non- 87.6 BUN/Creatinine Ratio 17.3 Random Glucose 153 mg/dl Calcium Level 9.0 mg/dl Magnesium Level 2.3 mg/dl Total Bilirubin 18.5 mg/dl Direct Bilirubin 14.5 mg/dl Aspartate Amino Transf (AST/SGOT) 147 U/L Alanine Aminotransferase (ALT/SGPT) 371 U/L Alkaline Phosphatase 376 U/L Total Protein 6.0 gm/dl Albumin 3.1 gm/dl Amylase Level 59 U/L Lipase 591 U/L Impression Patient is a 66 year old male presents with jaundice related to a pancreatic head mass. The CT is suggestive of local invasive and possible lymphadenopathy. We are planning for ERCP today for biliary decompression. Further evaluation will be completed over the next few weeks to include an endoscopic ultrasound for staging purposes. I have discussed the risks of ERCP to include bleeding, infection, perforation, pain, failed cannulation, and need for follow-up procedures. Plan ERCP today CT of chest to evaluate for metastatic disease Outpatient EUS to be scheduled
[2016-07-05] MEDS ORDERED: GLYCOPYRROLATE INJ 0.2 MG/ML VIAL ONE (09:02)
--- NOTE | 2016-07-05 09:38 | GI REPORT ---
Procedure Date: 07/05/2016 8:40 AM Procedure: ERCP Indications: Jaundice, Abnormal liver function test, Tumor of the head of pancreas Medicines: General Anesthesia, Indocin 100 mg [place] Complications: No immediate complications. Estimated blood loss: Minimal. Estimated Blood Loss: Estimated blood loss was minimal. Procedure: Pre-Anesthesia Assessment: - Prior to the procedure, a History and Physical was performed, and patient medications, allergies and sensitivities were reviewed. The patient's tolerance of previous anesthesia was reviewed. - The risks and benefits of the procedure and the sedation options and risks were discussed with the patient. All questions were answered and informed consent was obtained. - Patient identification and proposed procedure were verified prior to the procedure by the physician, the nurse and the aircraft power plant assembler. The procedure was verified in the procedure room. - Pre-procedure physical examination revealed no contraindications to sedation. - ASA Grade Assessment: III - A patient with severe systemic disease. - After reviewing the risks and benefits, the patient was deemed in satisfactory condition to undergo the procedure. - The anesthesia plan was to use general anesthesia. - Immediately prior to administration of medications, the patient was re-assessed for adequacy to receive sedatives. - The heart rate, respiratory rate, oxygen saturations, blood pressure, adequacy of pulmonary ventilation, and response to care were monitored throughout the procedure. - The physical status of the patient was re-assessed after the procedure. After obtaining informed consent, the scope was passed under direct vision. Throughout the procedure, the patient's blood pressure, pulse, and oxygen saturations were monitored continuously. The scope was introduced through the mouth, and advanced to the duodenum and used to inject contrast into the bile duct. The ERCP was accomplished without difficulty. The patient tolerated the procedure well. Findings: A state farm agent team member film of the abdomen was obtained. The esophagus was successfully intubated under direct vision without detailed examination of the pharynx, larynx, and associated structures, and upper GI tract. The upper GI tract was grossly normal. The major papilla was normal. The ventral pancreatic duct was inadvertently cannulated with the short-nosed traction sphincterotome (Omni 35) and 0.035 in Met 2 guidewire without any complications. The wire was left in place to aid in biliary cannulation and place a prophylactic stent at the end of the procedure. The bile duct was then deeply cannulated with the short-nosed traction sphincterotome (Omni 35) and 0.035 in Acrobat guidewire. Contrast was injected. I personally interpreted the bile duct images. Contrast extended to the hepatic ducts. The middle third of the main bile duct contained a single segmental stenosis 10 mm in length correlating with the known pancreatic mass. The upper third of the main bile duct and left and right hepatic ducts and all intrahepatic branches were moderately dilated and diffusely dilated, with a mass causing an obstruction. The largest diameter was 10 mm. Biliary sphincterotomy was made with a monofilament short-tip traction sphincterotome using ERBE electrocautery. There was no post-sphincterotomy bleeding. Cells for cytology were obtained by brushing in the middle third of the main bile duct. The middle third of the main bile duct was successfully dilated with a 6 mm Masterseek Titan balloon dilator held inflated for 1 minute. One 10 Fr by 8 cm biliary stent with a single external flap and a single internal flap was placed 8 cm into the common bile duct. Dark, thick bile flowed through the stent. The stent was in good position. One 5 Fr by 7 cm pancreatic stent with a full external pigtail and no internal flaps was placed 6.5 cm into the ventral pancreatic duct. Clear fluid flowed through the stent(s). The stent was in good position. The endoscope was withdrawn from the patient. Impression: - The major papilla appeared normal. - A segmental biliary stricture was found. The stricture was malignant appearing. - The left and right hepatic ducts and all intrahepatic branches and upper third of the main bile duct were moderately dilated, with a mass causing an obstruction. - A sphincterotomy was performed. - Cells for cytology obtained in the middle third of the main bile duct. - One biliary stent was placed into the biliary tree. - One pancreatic stent was placed into the ventral pancreatic duct. Recommendation: - Avoid aspirin and nonsteroidal anti-inflammatory medicines for 1 week. - Clear liquid diet today. - Cipro (ciprofloxacin) 400 mg IV q 12 hr for 3 days. - Await cytology results. - Perform an upper endoscopic ultrasound (UEUS) at appointment to be scheduled. - Observe patient's clinical course following today's ERCP with therapeutic intervention. Debi Edwards D.O. Debi Edwards DO 07/05/2016 9:37:27 AM This report has been signed electronically. Note Initiated On: 07/05/2016 8:40 AM I attest to the content of the Intraoperative Record and orders documented therein, exceptions below
[2016-07-05] MEDS ORDERED: POTASSIUM CHLORIDE 10 MEQ TABCR PO ONE (09:45)
--- NOTE | 2016-07-05 09:45 | DIAGNOSTIC IMAGING REPORT ---
ERCP BILIARY DUCTAL CLINICAL HISTORY: ERCP COMPARISON STUDY: None FLUOROSCOPY TIME: 2 minutes. FINDINGS: Retrograde cannulation of the common duct. This is followed by placement of a common duct stent. IMPRESSION: Placement of a common duct stent. Electronically signed by: Jerad Jha M.D. 07/05/2016 9:44 AM Dictated Date/Time: 07/05/2016 9:43 AM
--- NOTE | 2016-07-05 09:46 | [facility] Post Operative Brief Note ---
Immediate Operative Summary Operative Date July 05, 2016. Pre-Operative Diagnosis Elevated liver enzymes and jaundice Post-Operative Diagnosis Malignant appearing biliary stricture Procedure(s) Performed Endoscopic Retrograde Cholangiopancreatogram, Sphincterotomy, dilation, cytology and stent placement Surgeon Jerry Manager Oncology Surgeon(s) None Estimated Blood Loss 0cc Findings 10 mm stricture in the CBD (worrisome for malignancy) Specimens Beatrice cytology of the CBD Drains 1 biliary stent, 1 pancreatic stent Anesthesia general Complication(s) None Disposition Recovery Room / PACU
--- NOTE | 2016-07-05 09:59 | Hospitalist Progress Note ---
Hospitalist Progress Note Date of Service July 05, 2016. Subjective Pt evaluation today including: conversation w/ patient, physical exam, chart review, lab review, review of studies, review of inpatient medication list Patient currently denies any pain. He is drowsy from his procedure. He denies any nausea. No fever or chills. Denies any chest pain or pressure. No difficulty breathing. Additional Comments: 6 system review negative. Please see pertinent positives in the history of present illness section. Objective Vital Signs Date Time Temp Pulse Resp B/P Pulse Ox O2 Delivery O2 Flow Rate FiO2 07/05/16 07:22 36.6 67 18 129/88 96 Room Air 07/05/16 04:04 36.7 61 20 125/79 96 Room Air 07/05/16 01:00 37.1 64 16 143/84 94 Room Air 07/05/16 01:00 37.1 64 16 143/84 07/05/16 00:08 68 18 127/76 96 07/04/16 23:18 63 18 150/81 98 Room Air 07/04/16 21:20 68 18 137/78 95 Room Air 07/04/16 20:53 67 07/04/16 20:35 68 18 141/78 95 Room Air 07/04/16 20:04 64 18 138/81 95 Room Air 07/04/16 19:04 68 18 182/96 94 Room Air 07/04/16 18:25 68 20 149/85 95 Room Air 07/04/16 17:57 72 18 146/99 96 Room Air 07/04/16 16:37 66 16 130/82 94 Room Air 07/04/16 16:12 67 07/04/16 14:57 36.7 81 16 138/79 95 Room Air Physical Exam General Appearance: + pertinent finding (drowsy) Eyes: + abnormal sclerae exam (icteric) Neck: no JVD Respiratory/Chest: lungs clear Cardiovascular: regular rate, rhythm Abdomen: non tender, soft, + pertinent finding (bowel sounds hypoactive) Extremities: non-tender, no pedal edema Neurologic/Psychiatric: no motor/sensory deficits, oriented x 3 Skin: + jaundice Laboratory Results 07/05/16 05:58 Red Blood Count 3.86, Mean Corpuscular Volume 89.9, Mean Corpuscular Hemoglobin 32.4, Mean Corpuscular Hemoglobin Concent 36.0, Mean Platelet Volume 9.9, Neutrophils (%) (Auto) 63.5, Lymphocytes (%) (Auto) 26.6, Monocytes (%) (Auto) 5.6, Eosinophils (%) (Auto) 3.6, Basophils (%) (Auto) 0.6, Neutrophils # (Auto) 5.00, Lymphocytes # (Auto) 2.09, Monocytes # (Auto) 0.44, Eosinophils # (Auto) 0.28, Basophils # (Auto) 0.05 07/05/16 05:58 Test 07/04/16 15:19 07/04/16 19:50 07/05/16 05:58 07/05/16 08:31 Hepatitis B Surface Antigen NEG (NEG) Hepatitis C Antibody NEG (NEG) Urine Color DK YELLOW Urine Appearance CLEAR (CLEAR) Urine pH 5.5 (4.5-7.5) Urine Specific [place] 1.038 (1.000-1.030) Urine Protein NEG (NEG) Urine Glucose (UA) NEG (NEG) Urine Ketones NEG (NEG) Urine Occult Blood NEG (NEG) Urine Nitrite NEG (NEG) Urine Bilirubin 2+ (NEG) Urine Urobilinogen NEG (NEG) Urine Leukocyte Esterase NEG (NEG) White Blood Count 7.87 K/uL (4.8-10.8) Red Blood Count 3.86 M/uL (4.7-6.1) Hemoglobin 12.5 g/dL (14.0-18.0) Hematocrit 34.7 % (42-52) Mean Corpuscular Volume 89.9 fL (80-100) Mean Corpuscular Hemoglobin 32.4 pg (25-34) Mean Corpuscular Hemoglobin Concent 36.0 g/dl (32-36) Platelet Count 336 K/uL (130-400) Mean Platelet Volume 9.9 fL (7.4-10.4) Neutrophils (%) (Auto) 63.5 % Lymphocytes (%) (Auto) 26.6 % Monocytes (%) (Auto) 5.6 % Eosinophils (%) (Auto) 3.6 % Basophils (%) (Auto) 0.6 % Neutrophils # (Auto) 5.00 K/uL (1.4-6.5) Lymphocytes # (Auto) 2.09 K/uL (1.2-3.4) Monocytes # (Auto) 0.44 K/uL (0.11-0.59) Eosinophils # (Auto) 0.28 K/uL (0-0.5) Basophils # (Auto) 0.05 K/uL (0-0.2) RDW Standard Deviation 46.7 fL (36.4-46.3) RDW Coefficient of Variation 14.1 % (11.5-14.5) Immature Granulocyte % (Auto) 0.1 % Immature Granulocyte # (Auto) 0.01 K/uL (0.00-0.02) Prothrombin Time 11.1 SECONDS (9.0-12.0) Prothromb Time International Ratio 1.0 (0.9-1.1) Activated Partial Thromboplast Time 27.6 SECONDS (21.0-31.0) Partial Thromboplastin Ratio 1.1 Anion Gap 8.0 mmol/L (3-11) Est Creatinine Clear Calc Drug Dose 90.6 ml/min Estimated GFR () 101.5 Estimated GFR (Non- 87.6 BUN/Creatinine Ratio 17.3 (10-20) Calcium Level 9.0 mg/dl (8.5-10.1) Magnesium Level 2.3 mg/dl (1.8-2.4) Total Bilirubin 18.5 mg/dl (0.2-1) Direct Bilirubin 14.5 mg/dl (0-0.2) Aspartate Amino Transf (AST/SGOT) 147 U/L (15-37) Alanine Aminotransferase (ALT/SGPT) 371 U/L (12-78) Alkaline Phosphatase 376 U/L (45-117) Total Protein 6.0 gm/dl (6.4-8.2) Albumin 3.1 gm/dl (3.4-5.0) Amylase Level 59 U/L (25-115) Lipase 591 U/L (73-393) Bedside Glucose 161 mg/dl (70-99) Last 24 Hours Test 07/04/16 15:09 07/04/16 15:19 07/04/16 19:50 07/04/16 22:20 White Blood Count 10.16 K/uL Red Blood Count 4.34 M/uL Hemoglobin 14.4 g/dL Hematocrit 38.5 % Mean Corpuscular Volume 88.7 fL Mean Corpuscular Hemoglobin 33.2 pg Mean Corpuscular Hemoglobin Concent 37.4 g/dl Platelet Count 410 K/uL Mean Platelet Volume 9.7 fL Neutrophils (%) (Auto) 69.3 % Lymphocytes (%) (Auto) 18.7 % Monocytes (%) (Auto) 8.8 % Eosinophils (%) (Auto) 2.4 % Basophils (%) (Auto) 0.5 % Neutrophils # (Auto) 7.05 K/uL Lymphocytes # (Auto) 1.90 K/uL Monocytes # (Auto) 0.89 K/uL Eosinophils # (Auto) 0.24 K/uL Basophils # (Auto) 0.05 K/uL RDW Standard Deviation 45.7 fL RDW Coefficient of Variation 13.9 % Immature Granulocyte % (Auto) 0.3 % Immature Granulocyte # (Auto) 0.03 K/uL Sodium Level 132 mmol/L Potassium Level 3.1 mmol/L Chloride Level 94 mmol/L Carbon Dioxide Level 26 mmol/L Anion Gap 12.0 mmol/L Blood Urea Nitrogen 22 mg/dl Creatinine 1.20 mg/dl Est Creatinine Clear Calc Drug Dose 69.7 ml/min Estimated GFR () 73.6 Estimated GFR (Non- 63.5 BUN/Creatinine Ratio 18.7 Random Glucose 156 mg/dl Calcium Level 10.1 mg/dl Magnesium Level 2.3 mg/dl Total Bilirubin 20.1 mg/dl Direct Bilirubin 15.1 mg/dl Aspartate Amino Transf (AST/SGOT) 186 U/L Alanine Aminotransferase (ALT/SGPT) 468 U/L Alkaline Phosphatase 431 U/L Total Protein 7.3 gm/dl Albumin 3.7 gm/dl Lipase 580 U/L Hepatitis B Surface Antigen NEG Hepatitis C Antibody NEG Urine Color DK YELLOW Urine Appearance CLEAR Urine pH 5.5 Urine Specific [place] 1.038 Urine Protein NEG Urine Glucose (UA) NEG Urine Ketones NEG Urine Occult Blood NEG Urine Nitrite NEG Urine Bilirubin 2+ Urine Urobilinogen NEG Urine Leukocyte Esterase NEG Prothrombin Time 11.0 SECONDS Prothromb Time International Ratio 1.0 Test 07/05/16 05:58 07/05/16 08:09 07/05/16 08:31 White Blood Count 7.87 K/uL Red Blood Count 3.86 M/uL Hemoglobin 12.5 g/dL Hematocrit 34.7 % Mean Corpuscular Volume 89.9 fL Mean Corpuscular Hemoglobin 32.4 pg Mean Corpuscular Hemoglobin Concent 36.0 g/dl Platelet Count 336 K/uL Mean Platelet Volume 9.9 fL Neutrophils (%) (Auto) 63.5 % Lymphocytes (%) (Auto) 26.6 % Monocytes (%) (Auto) 5.6 % Eosinophils (%) (Auto) 3.6 % Basophils (%) (Auto) 0.6 % Neutrophils # (Auto) 5.00 K/uL Lymphocytes # (Auto) 2.09 K/uL Monocytes # (Auto) 0.44 K/uL Eosinophils # (Auto) 0.28 K/uL Basophils # (Auto) 0.05 K/uL RDW Standard Deviation 46.7 fL RDW Coefficient of Variation 14.1 % Immature Granulocyte % (Auto) 0.1 % Immature Granulocyte # (Auto) 0.01 K/uL Prothrombin Time 11.1 SECONDS Prothromb Time International Ratio 1.0 Activated Partial Thromboplast Time 27.6 SECONDS Partial Thromboplastin Ratio 1.1 Sodium Level 135 mmol/L Potassium Level 2.9 mmol/L Chloride Level 99 mmol/L Carbon Dioxide Level 28 mmol/L Anion Gap 8.0 mmol/L Blood Urea Nitrogen 16 mg/dl Creatinine 0.92 mg/dl Est Creatinine Clear Calc Drug Dose 90.6 ml/min Estimated GFR () 101.5 Estimated GFR (Non- 87.6 BUN/Creatinine Ratio 17.3 Random Glucose 153 mg/dl Calcium Level 9.0 mg/dl Magnesium Level 2.3 mg/dl Total Bilirubin 18.5 mg/dl Direct Bilirubin 14.5 mg/dl Aspartate Amino Transf (AST/SGOT) 147 U/L Alanine Aminotransferase (ALT/SGPT) 371 U/L Alkaline Phosphatase 376 U/L Total Protein 6.0 gm/dl Albumin 3.1 gm/dl Amylase Level 59 U/L Lipase 591 U/L Bedside Glucose 160 mg/dl 161 mg/dl Assessment and Plan This patient is a 66-year-old male that was sent emergency department by his PCP for abnormal labs and jaundice. Unfortunately, there is a mass noted on the pancreatic head per CT/MRCP Obstructive jaundice, pancreatic mass -s/p ERCP-->sphincter dilation and [address] Edwards -follow LFTs, Lipase -Heme/onc consult pending -continue IVF -advance diet Hypokalemia -KCl 20 mEq IV x 1 -KCl 40 mEq po x 1 after procedure -PRP in am HTN -Home Lisinopril/HCTZ 20/25 mg daily on hold for hypotension DM -Metformin 500 mg po BID on hold -ISS -accuchecks DVT prophylaxis -ambulation -TEDS, SCDs CODE STATUS -LEVEL I FULL CODE This chart was completed in part utilizing [employer] Speech Voice Recognition software. Attempts were made to minimize the grammatical errors, random word insertions, pronoun errors and incomplete sentences. Any formal questions or concerns about the content, text or information contained within the body of this dictation should be directly addressed to the provider for clarification.
[2016-07-05] MEDS ORDERED: CIPROFLOXACIN 400MG / 200ML D5W ONE (10:11)
[2016-07-05] MEDS: CIPROFLOXACIN / D5W 400 MG in PREMIXED IN D5W 200 ML IV SCH ×2 (10:35→21:31)
[2016-07-05] MEDS: PANTOprazole INJ 40 MG in SYRINGE 0 ML IV SCH (10:35)
--- NOTE | 2016-07-05 10:43 | Anesthesiology Progress Note ---
Anesthesia Post Op Note Date & Time July 05, 2016 at 10:43 Vital Signs Pain Intensity: 0 Vital Signs Past 12 Hours Date Time Temp Pulse Resp B/P Pulse Ox O2 Delivery O2 Flow Rate FiO2 07/05/16 10:29 36.4 72 18 117/73 94 Room Air 07/05/16 10:08 36.7 74 18 117/70 94 Room Air 07/05/16 10:00 79 18 122/78 94 Room Air Mask 07/05/16 09:50 85 20 114/85 99 Mask 5 07/05/16 09:41 36.4 83 20 107/71 100 Mask 5 07/05/16 08:00 Room Air 07/05/16 07:22 36.6 67 18 129/88 96 Room Air 07/05/16 04:04 36.7 61 20 125/79 96 Room Air 07/05/16 01:00 37.1 64 16 143/84 94 Room Air 07/05/16 01:00 37.1 64 16 143/84 07/05/16 00:08 68 18 127/76 96 07/04/16 23:18 63 18 150/81 98 Room Air Notes Mental Status: alert / awake / arousable, participated in evaluation Pt Amnestic to Procedure: Yes Nausea / Vomiting: adequately controlled Pain: adequately controlled Airway Patency, RR, SpO2: stable & adequate BP & HR: stable & adequate Hydration State: stable & adequate Anesthetic Complications: no major complications apparent
[2016-07-05] MEDS: POTASSIUM CHLR 10MEQ / WTR IV SCH ×2 (10:44→12:25)
--- NOTE | 2016-07-05 12:20 | Oncology Consultation ---
Oncology/Heme Consultation Date of Consultation: July 05, 2016. Attending Physician: Chris Correa D.O. Reason for Consultation: Pancreatic mass Obstructive jaundice History of Present Illness Mr. Agustin is a 66 year old man with a fairly minimal medical history, though he reports being diagnosed with diabetes a few weeks ago. He's been tired and losing weight (~20 lb) over the last month or so, with the subtle onset of jaundice. He denies any pain. He's noticed a lightening in the color of his stool, however. He presented late yesterday with painless jaundice and was found to have a bilirubin of 20. He underwent CT that revealed an obstructing mass in the head/neck of the pancreas. He underwent emergent ERCP last night with sphincterotomy and stent placement. They encountered extrinsic compression of the middle third of the main bile duct, corresponding to the location of the pancreatic mass. Brushings were taken, which are pending. His bili is down this morning. Past Medical/Surgical History Medical Problems: (1) Obstructive jaundice Status: Acute (2) Pancreatic mass Status: Acute Surgical Problems: (1) History of hernia repair Status: Chronic Family History No significant family history Social History Smoking Status: Former Smoker Smokeless Tobacco Use: No Alcohol Use: none Drug Use: none Marital Status: Housing Status: lives with family Occupation Status: employed Allergies Coded Allergies: No Known Allergies (Unverified , 07/04/16) Home Medications Scheduled Allopurinol (Zyloprim), 300 MG PO DAILY Flaxseed (Linseed) (Flaxseed Oil), 1 CAP PO DAILY Lisinopril/Hctz (Zestoretic 20MG/25MG), 1 TAB PO DAILY Metformin HCl (Metformin HCl), 1 TAB PO BID Current Inpatient Medications Current Inpatient Medications Medications (Trade) Dose Ordered Sig/Nancy Route Start Time Stop Time Status Last Admin Dose Admin Ioversol (Optiray 320) 125 ml UD PRN IV 07/04/16 16:00 07/08/16 15:59 Ondansetron HCl (Zofran Inj) 4 mg Q6H PRN IV 07/04/16 23:00 08/03/16 22:59 Insulin Aspart (novoLOG ASPART) SLIDING SCALE If C... ACHS SC 07/05/16 06:30 08/04/16 06:59 07/05/16 08:13 1 UNITS Glucose (Glucose 40% Gel) UD PRN PO 07/04/16 23:00 08/03/16 22:59 Glucose (Glucose Chew Tab) 1 tabs UD PRN PO 07/04/16 23:00 08/03/16 22:59 Dextrose (Dextrose 50% 50ML Syringe) 50 ml UD PRN IV 07/04/16 23:00 08/03/16 22:59 Glucagon 1 mg 1 mg UD PRN SQ 07/04/16 23:00 08/03/16 22:59 Pantoprazole Sodium 40 mg/ Syringe 10 ml @ 5 mls/min DAILY@11 IV 07/05/16 11:00 08/04/16 10:59 07/05/16 10:35 5 MLS/MIN Potassium Chloride/Sodium Chloride (Nss + 20meq KCl 1000ml) 1,000 ml @ 100 mls/hr Q10H IV 07/05/16 01:00 08/04/16 00:59 07/05/16 01:54 100 MLS/HR Fentanyl Citrate (Fentanyl Inj) 25 mcg Q5M PRN IV 07/05/16 08:00 07/05/16 13:00 Hydromorphone HCl (Dilaudid Inj) 0.5 mg Q5M PRN IV 07/05/16 08:00 07/05/16 13:00 Ondansetron HCl (Zofran Inj) 4 mg ONE PRN IV 07/05/16 08:00 07/05/16 13:00 Ephedrine Sulfate (EpHEDrine SULFATE INJ) 5 mg Q5M PRN IV 07/05/16 08:00 07/05/16 13:00 Atropine Sulfate 0.5 mg 0.5 mg Q1M PRN IV 07/05/16 08:00 07/05/16 13:00 Ciprofloxacin/ Dextrose/Prmx (Cipro / D5w/ Premixed D5W) 200 ml @ 100 mls/hr Q12H IV 07/05/16 10:00 07/15/16 09:59 07/05/16 10:35 100 MLS/HR Review of Systems Constitutional: + fatigue, + weight loss, No chills, No fever Eyes: No worsening of vision ENT: No trouble swallowing Respiratory: No cough, No shortness of breath Cardiovascular: No chest pain Abdomen: No nausea, No pain, No vomiting Musculoskeletal: No joint pain, No muscle pain Neurologic: No weakness Integumentary: + color change (Jaundice), No rash Physical Exam Date Time Temp Pulse Resp B/P Pulse Ox O2 Delivery O2 Flow Rate FiO2 07/05/16 10:29 36.4 72 18 117/73 94 Room Air 07/05/16 10:08 36.7 74 18 117/70 94 Room Air 07/05/16 10:00 79 18 122/78 94 Room Air Mask 07/05/16 09:50 85 20 114/85 99 Mask 5 07/05/16 09:41 36.4 83 20 107/71 100 Mask 5 07/05/16 08:00 Room Air 07/05/16 07:22 36.6 67 18 129/88 96 Room Air 07/05/16 04:04 36.7 61 20 125/79 96 Room Air 07/05/16 01:00 37.1 64 16 143/84 94 Room Air 07/05/16 01:00 37.1 64 16 143/84 07/05/16 00:08 68 18 127/76 96 07/04/16 23:18 63 18 150/81 98 Room Air 07/04/16 21:20 68 18 137/78 95 Room Air 07/04/16 20:53 67 07/04/16 20:35 68 18 141/78 95 Room Air 07/04/16 20:04 64 18 138/81 95 Room Air 07/04/16 19:04 68 18 182/96 94 Room Air 07/04/16 18:25 68 20 149/85 95 Room Air 07/04/16 17:57 72 18 146/99 96 Room Air 07/04/16 16:37 66 16 130/82 94 Room Air 07/04/16 16:12 67 07/04/16 14:57 36.7 81 16 138/79 95 Room Air General Appearance: no apparent distress, + obese Eyes: EOMI, + abnormal sclerae exam (icteric) Respiratory/Chest: lungs clear, no respiratory distress Cardiovascular: regular rate, rhythm, no murmur Abdomen/GI: non tender, soft, no organomegaly Extremities/Musculoskelatal: no pedal edema, non-tender Neurologic/Psych: 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 manager 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-XII nml as tested, alert, oriented x 3 Skin: no rash, + jaundice Laboratory Results Last 24 Hours Test 07/04/16 15:09 07/04/16 15:19 07/04/16 19:50 07/04/16 22:20 White Blood Count 10.16 K/uL Red Blood Count 4.34 M/uL Hemoglobin 14.4 g/dL Hematocrit 38.5 % Mean Corpuscular Volume 88.7 fL Mean Corpuscular Hemoglobin 33.2 pg Mean Corpuscular Hemoglobin Concent 37.4 g/dl Platelet Count 410 K/uL Mean Platelet Volume 9.7 fL Neutrophils (%) (Auto) 69.3 % Lymphocytes (%) (Auto) 18.7 % Monocytes (%) (Auto) 8.8 % Eosinophils (%) (Auto) 2.4 % Basophils (%) (Auto) 0.5 % Neutrophils # (Auto) 7.05 K/uL Lymphocytes # (Auto) 1.90 K/uL Monocytes # (Auto) 0.89 K/uL Eosinophils # (Auto) 0.24 K/uL Basophils # (Auto) 0.05 K/uL RDW Standard Deviation 45.7 fL RDW Coefficient of Variation 13.9 % Immature Granulocyte % (Auto) 0.3 % Immature Granulocyte # (Auto) 0.03 K/uL Sodium Level 132 mmol/L Potassium Level 3.1 mmol/L Chloride Level 94 mmol/L Carbon Dioxide Level 26 mmol/L Anion Gap 12.0 mmol/L Blood Urea Nitrogen 22 mg/dl Creatinine 1.20 mg/dl Est Creatinine Clear Calc Drug Dose 69.7 ml/min Estimated GFR () 73.6 Estimated GFR (Non- 63.5 BUN/Creatinine Ratio 18.7 Random Glucose 156 mg/dl Calcium Level 10.1 mg/dl Magnesium Level 2.3 mg/dl Total Bilirubin 20.1 mg/dl Direct Bilirubin 15.1 mg/dl Aspartate Amino Transf (AST/SGOT) 186 U/L Alanine Aminotransferase (ALT/SGPT) 468 U/L Alkaline Phosphatase 431 U/L Total Protein 7.3 gm/dl Albumin 3.7 gm/dl Lipase 580 U/L Hepatitis B Surface Antigen NEG Hepatitis C Antibody NEG Urine Color DK YELLOW Urine Appearance CLEAR Urine pH 5.5 Urine Specific [place] 1.038 Urine Protein NEG Urine Glucose (UA) NEG Urine Ketones NEG Urine Occult Blood NEG Urine Nitrite NEG Urine Bilirubin 2+ Urine Urobilinogen NEG Urine Leukocyte Esterase NEG Prothrombin Time 11.0 SECONDS Prothromb Time International Ratio 1.0 Test 07/05/16 05:58 07/05/16 08:09 07/05/16 08:31 07/05/16 11:54 White Blood Count 7.87 K/uL Red Blood Count 3.86 M/uL Hemoglobin 12.5 g/dL Hematocrit 34.7 % Mean Corpuscular Volume 89.9 fL Mean Corpuscular Hemoglobin 32.4 pg Mean Corpuscular Hemoglobin Concent 36.0 g/dl Platelet Count 336 K/uL Mean Platelet Volume 9.9 fL Neutrophils (%) (Auto) 63.5 % Lymphocytes (%) (Auto) 26.6 % Monocytes (%) (Auto) 5.6 % Eosinophils (%) (Auto) 3.6 % Basophils (%) (Auto) 0.6 % Neutrophils # (Auto) 5.00 K/uL Lymphocytes # (Auto) 2.09 K/uL Monocytes # (Auto) 0.44 K/uL Eosinophils # (Auto) 0.28 K/uL Basophils # (Auto) 0.05 K/uL RDW Standard Deviation 46.7 fL RDW Coefficient of Variation 14.1 % Immature Granulocyte % (Auto) 0.1 % Immature Granulocyte # (Auto) 0.01 K/uL Prothrombin Time 11.1 SECONDS Prothromb Time International Ratio 1.0 Activated Partial Thromboplast Time 27.6 SECONDS Partial Thromboplastin Ratio 1.1 Sodium Level 135 mmol/L Potassium Level 2.9 mmol/L Chloride Level 99 mmol/L Carbon Dioxide Level 28 mmol/L Anion Gap 8.0 mmol/L Blood Urea Nitrogen 16 mg/dl Creatinine 0.92 mg/dl Est Creatinine Clear Calc Drug Dose 90.6 ml/min Estimated GFR () 101.5 Estimated GFR (Non- 87.6 BUN/Creatinine Ratio 17.3 Random Glucose 153 mg/dl Calcium Level 9.0 mg/dl Magnesium Level 2.3 mg/dl Total Bilirubin 18.5 mg/dl Direct Bilirubin 14.5 mg/dl Aspartate Amino Transf (AST/SGOT) 147 U/L Alanine Aminotransferase (ALT/SGPT) 371 U/L Alkaline Phosphatase 376 U/L Total Protein 6.0 gm/dl Albumin 3.1 gm/dl Amylase Level 59 U/L Lipase 591 U/L Bedside Glucose 160 mg/dl 161 mg/dl 225 mg/dl Assessment & Plan The appearance of his scans and his presentation with painless jaundice are very suggestive of a pancreatic adenocarcinoma. Still, we will need to await final pathologic confirmation. GI are planning an outpatient EUS with FNA, which should provide ample tissue. Based on a preliminary review of his scans, it appears he has localized disease and may have borderline resectable or even resectable disease. He will need higher quality imaging (high-res CT with pancreatic protocol) to better characterize his resectability. We can check a CA 19-9; while that wouldn't confirm a diagnosis, a markedly elevated level would certainly support my overall clinical impression. I would then like to see him in the office after we have pathology confirmation. Ultimately, I think he will need referral to a high-volume center, like [facility] or [facility], to discuss the likelihood of resectability. This is a difficult and complex clinical determination and is best made in centers that see these patients frequently.
--- NOTE | 2016-07-05 12:45 | DIAGNOSTIC IMAGING REPORT ---
CHEST CT WITHOUT CONTRAST CT DOSE: 606.33 mGy.cm HISTORY: Evaluation for metastatic disease (2.5 cm pancreatic mass) TECHNIQUE: Multiaxial CT images of the chest were performed without contrast. COMPARISON: None. FINDINGS: Subtle bibasilar interstitial change. Possible groundglass density posterior aspect left lower lobe measuring 7 mm. 6 mm nodular density right middle lobe. IMPRESSION: 1. Minimal bibasilar nonspecific interstitial change. 2. Several small sub-6 mm nodules in the lower lung regions with follow-up per Fleischner criteria. These currently are nonspecific. 3. Several indeterminate axillary nodes with largest of which measures 7 mm in the mid to high right axillary region. 4. Follow-up per Fleischner criteria or as clinically indicated. Please refer to below summary of Fleischner criteria recommendations for follow-up of incidental CT nodules (Jesus Garcia, Guidelines for management of small pulmonary nodules detected on CT scans: A statement from the Fleischner Society, Radiology 237: [phone].) SOLID NODULES Solitary nodule size: <6 mm * low risk patients: no follow-up needed * high risk patients: optional CT at 12 months Solitary nodule size: 6-8 mm * low risk patients: follow-up at 6-12 months, then consider further follow-up at 18-24 months * high risk patients: initial follow-up CT at 6-12 months and then at 18-24 months if no change Solitary nodule size: >8 mm * either low or high risk patients - consider follow-up CT at 3 months, and/or CT-PET, and/or biopsy Multiple nodules size: <6 mm * low risk patients: no routine follow-up * high risk patients: optional CT at 12 months Multiple nodules size: 6-8 mm * low risk patients: follow-up at 3-6 months, then consider further follow-up at 18-24 months * high risk patients: follow-up at 3-6 months, then at 18-24 months if no change Multiple nodules size: >8 mm * low risk patients: follow-up at 3-6 months, then consider further follow-up at 18-24 months * high risk patients: follow-up at 3-6 months, then at 18-24 months if no change Note: newly detected indeterminate nodule in persons 35 years of age or older. * Low risk patients: minimal or absent history of smoking and/or other known risk factors * high risk patients: history of smoking or of other known risk factors (e.g. first degree relative with lung cancer, or exposure to asbestos, radon, uranium) * if a nodule up to 8 mm is partly solid or is ground glass further follow-up is required after 24 months to exclude possible slow growing adenocarcinoma (CASTRO) SUBSOIL NODULES Solitary pure ground-glass nodule * nodule size <6 mm - no CT follow-up required * nodule size >=6 mm - follow-up CT at 6-12 months, then every 2 years until 5 years Solitary part-solid nodule * nodule size <6 mm - no CT follow-up required * nodule size >=6 mm - follow-up CT at 3-6 months. If unchanged, and solid component remains <6 mm, then annual follow-up for 5 years Multiple subsolid nodules * nodule size <6 mm - follow-up CT at 3-6 months, consider further follow-up at 2 and 4 years if stable * nodule size >=6 mm - follow-up CT at 3-6 months, subsequent management based on the most suspicious nodule(s) Electronically signed by: Jerad Jha M.D. 07/05/2016 12:44 PM Dictated Date/Time: 07/05/2016 12:40 PM
[2016-07-06 04:31] VITALS: BP 114/68; PULSE 56; TEMP 36.7; O2SAT 96
[2016-07-06 06:02] LABS: BASO % 0.6 %; BASO ABS # 0.05 K/uL (0-0.2); COMPLETE YES; HEMATOCRIT 34.9 % (42-52); IG% 0.2 %; LYMPH ABS # 1.68 K/uL (1.2-3.4); MEAN CELL VOLUME 92.6 fL (80-100); MEAN CORPUSCULAR HEMOGLOBIN 32.1 pg (25-34); MEAN CORPUSCULAR HGB CONC 34.7 g/dl (32-36); MONO % 8.4 %; NEUT % 66.8 %; PLATELET COUNT 349 K/uL (130-400); RED BLOOD COUNT 3.77 M/uL (4.7-6.1); WHITE BLOOD COUNT 8.85 K/uL (4.8-10.8)
[2016-07-06 06:58] LABS: BUN/CREATININE RATIO 11.8 (10-20); CALCIUM 8.5 mg/dl (8.5-10.1); CREATININE 0.74 mg/dl (0.60-1.40); POTASSIUM 3.6 mmol/L (3.5-5.1)
[2016-07-06 07:01] LABS: INR 1.1 (0.9-1.1); PROTHROMBIN TIME (PATIENT) 11.3 SECONDS (9.0-12.0)
[2016-07-06 07:16] VITALS: BP 129/78; PULSE 57; TEMP 36.8; O2SAT 94
[2016-07-06] MEDS: NSS + 20MEQ KCL 1000ML 1,000 ML IV SCH (07:29)
[2016-07-06] MEDS: INSULIN ASPART 100 UNITS/ML 3 ML PEN SC SCH ×2 (08:40→11:00)
[2016-07-06] MEDS ORDERED: CIPR-255 PO (09:14)
--- NOTE | 2016-07-06 09:29 | Discharge Instructions ---
Discharge Instructions Date of Service July 06, 2016. Admission Reason for Admission: Obstructive Jaundice, Pancreatic Mass Discharge Discharge Diagnosis / Problem: Pancreatic mass, obstructive jaundice Discharge Goals Goal(s): Diagnostic testing (outpatient endoscopic ultrasound biopsy), Specific goals (follow up with [facility] and [facility] [address] On[facility] samira) Activity Recommendations Activity Limitations: resume your previous activity Lifting Limitations: none Exercise/Sports Limitations: as tolerated May Resume Sexual Activity: when tolerated Shower/Bathe: no limitations . Instructions / Follow-Up Instructions / Follow-Up Medications: resume previous medications - CIPRO: antibiotic, more for prophylaxis to prevent infection given recent stenting in biliary and pancreatic ducts Obstructive Jaundice: resolving quickly, bilirubin dropped from 20 to 7 overnight after stents placed, all other liver enzymes trending down quickly Pancreatic mass: brushings taken but poor yield, need endoscopic ultrasound biopsy in the office, please call tomorrow to arrange this as soon as possible Dr. Edwards is the [facility] physician who performed the ERCP and stents but any physician who can perform the EUS would be an option once you have the biopsy and results, Dr. Cardenas will see you in the office and discuss results, plan of care, likely referral to tertiary care center to address if there is a possibility of resection FOLLOW UP - [facility]: this week for endoscopic US biopsy of pancreatic mass, [phone] - [facility] [address] Oncology, Dr. Cardenas, once biopsy results back, Current Hospital Diet Patient's current hospital diet: Clear Liquid Diet Discharge Diet Recommended Diet: Regular Diet Procedures Procedures Performed: Endoscopic Retrograde Cholangiopancreatogram, Sphincterotomy, dilation, cytology and stent placement Pending Studies Studies pending at discharge: yes List of pending studies: biopsy brushings from ERCP Laboratory Results Last 24 Hours Test 07/05/16 11:54 07/05/16 13:49 07/05/16 16:40 07/05/16 21:15 Bedside Glucose 225 mg/dl 218 mg/dl 96 mg/dl Test 07/06/16 05:39 07/06/16 06:40 07/06/16 07:38 White Blood Count 8.85 K/uL Red Blood Count 3.77 M/uL Hemoglobin 12.1 g/dL Hematocrit 34.9 % Mean Corpuscular Volume 92.6 fL Mean Corpuscular Hemoglobin 32.1 pg Mean Corpuscular Hemoglobin Concent 34.7 g/dl Platelet Count 349 K/uL Mean Platelet Volume 10.0 fL Neutrophils (%) (Auto) 66.8 % Lymphocytes (%) (Auto) 19.0 % Monocytes (%) (Auto) 8.4 % Eosinophils (%) (Auto) 5.0 % Basophils (%) (Auto) 0.6 % Neutrophils # (Auto) 5.92 K/uL Lymphocytes # (Auto) 1.68 K/uL Monocytes # (Auto) 0.74 K/uL Eosinophils # (Auto) 0.44 K/uL Basophils # (Auto) 0.05 K/uL RDW Standard Deviation 49.3 fL RDW Coefficient of Variation 14.4 % Immature Granulocyte % (Auto) 0.2 % Immature Granulocyte # (Auto) 0.02 K/uL Sodium Level 141 mmol/L Potassium Level 3.6 mmol/L Chloride Level 105 mmol/L Carbon Dioxide Level 28 mmol/L Anion Gap 8.0 mmol/L Blood Urea Nitrogen 9 mg/dl Creatinine 0.74 mg/dl Est Creatinine Clear Calc Drug Dose 112.6 ml/min Estimated GFR () 113.0 Estimated GFR (Non- 97.5 BUN/Creatinine Ratio 11.8 Random Glucose 127 mg/dl Calcium Level 8.5 mg/dl Magnesium Level 2.0 mg/dl Total Bilirubin 7.4 mg/dl Direct Bilirubin 5.4 mg/dl Aspartate Amino Transf (AST/SGOT) 96 U/L Alanine Aminotransferase (ALT/SGPT) 298 U/L Alkaline Phosphatase 327 U/L Total Protein 5.9 gm/dl Albumin 2.9 gm/dl Globulin 3.0 gm/dl Albumin/Globulin Ratio 1.0 Amylase Level 61 U/L Lipase 490 U/L Prothrombin Time 11.3 SECONDS Prothromb Time International Ratio 1.1 Activated Partial Thromboplast Time 26.6 SECONDS Partial Thromboplastin Ratio 1.0 Bedside Glucose 133 mg/dl Hemoglobin A1c Test 06/10/16 09:29 Range/Units Estimated Average Glucose 160 mg/dl Hemoglobin A1c 7.2 H 4.5-5.6 % Lipid Panel Test 06/10/16 09:29 Range/Units Triglycerides Level 362 H 0-150 mg/dl Cholesterol Level 166 0-200 mg/dl HDL Cholesterol 45 mg/dl Cholesterol/HDL Ratio 3.7 LDL Cholesterol, Calculated 49 mg/dl Medical Emergencies . Who to Call and When: Medical Emergencies: If at any time you feel your situation is an emergency, please call 911 immediately. . Non-Emergent Contact Non-Emergency issues call your: Branch General Manager, Oncologist Call Non-Emergent contact if: you have a fever, you have any medication questions . Past History Medical & Surgical History: (1) Pancreatic mass (2) Obstructive jaundice . "Provider Documentation" section prepared by Chris Correa. . VTE Core Measure Inpt VTE Proph given/why not?: SCD's [place] Drug Monitoring Program Search Results: no issues identified
[2016-07-06] MEDS: CIPROFLOXACIN / D5W 400 MG in PREMIXED IN D5W 200 ML IV SCH (09:53)
[2016-07-06] MEDS: PANTOprazole INJ 40 MG in SYRINGE 0 ML IV SCH (11:14)
[2016-07-06 11:21] VITALS: BP 129/78; PULSE 57; TEMP 36.8; O2SAT 94
--- NOTE | 2016-07-06 13:21 | Discharge Summary ---
Discharge Summary Date of Service July 06, 2016. Discharge Summary Admission Date: July 04, 2016 at 22:49 Discharge Date: July 06, 2016 Discharge Disposition: Home Principal Diagnosis: Pancreatic mass Problems/Secondary Diagnoses: Obstructive jaundice Hypokalemia, resolved Procedures: ERCP with sphincterotomy, stents placed in CBD and pancreatic duct, brushings taken for pathology Consultations: Gastroenterology Oncology Medication Reconciliation New Medications: Ciprofloxacin Hcl (Cipro) 500 Mg Tab 1 TAB PO BID for 7 Days, #14 TAB Continued Medications: Allopurinol (Zyloprim) 300 Mg Tab 300 MG PO DAILY, TAB Flaxseed (Linseed) (Flaxseed Oil) 1 Cap Cap 1 CAP PO DAILY Lisinopril/Hctz (Zestoretic 20MG/25MG) Tab 1 TAB PO DAILY, TAB Metformin HCl (Metformin HCl) 500 Mg Tab 1 TAB PO BID Discharge Exam Patient feeling well, tolerating diet, no pain. Discussed that lab work improving, Bili and LFT all trending down. Discussed plan for follow up with EUS with GI and then with Dr. Cardenas. All questions answered. Review of Systems: Constitutional: + weakness, No chills, No fatigue, No fever, No problem reported, No sweats, No weight loss ENT: No dental problems, No hearing loss, No nasal symptoms, No problem reported, No sore throat, No tinnitus, No trouble swallowing, No unusual epistaxis Respiratory: No cough, No dyspnea at rest, No dyspnea on exertion, No hemoptysis, No problem reported, No shortness of breath, No sputum, No wheezing Cardiovascular: No PND, No chest pain, No claudication, No edema, No orthopnea, No palpitations, No problem reported Abdomen: No GI bleeding, No constipation, No diarrhea, No nausea, No pain, No problem reported, No vomiting Musculoskeletal: No calf pain, No joint pain, No muscle pain, No problem reported, No swelling Genitourinary - Male: No dysuria, No hematuria, No urinary frequency, No urinary urgency Neurologic: No balance problems, No memory loss, No numbness/tingling, No paralysis, No problem reported, No vertigo, No weakness Psychiatric: No anhedonism, No anxiety, No depression symptoms, No insomnia , No problem reported, No substance abuse Endocrine: No excessive thirst, No excessive urination, No fatigue, No problem reported Hematologic / Lymphatic: No abnormal bleeding/bruising, No clotting problems , No night sweats, No problem reported, No swollen lymph nodes Integumentary: + color change (jaundice), No bleeding, No itch, No new/ changing skin lesions, No problem reported, No rash Physical Exam: General Appearance: WD/WN, no apparent distress Eyes: normal inspection, EOMI, + abnormal sclerae exam (icterus) ENT: normal ENT inspection, hearing grossly normal, pharynx normal Neck: supple, no adenopathy, no JVD, trachea midline Respiratory/Chest: chest non-tender, lungs clear, normal breath sounds, no respiratory distress, no accessory muscle use Cardiovascular: regular rate, rhythm, no edema, no gallop, no JVD, no murmur , normal peripheral pulses Abdomen / GI: normal bowel sounds, non tender, soft, no organomegaly Extremities: normal inspection, no calf tenderness, normal capillary refill , no pedal edema, normal range of motion Neurologic/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 CT scan showed pancreatic mass in head of pancreas. MRCP confirmed this finding. He had ERCP on 07/05 with below details, tolerated well. LFT trending down and d/c to home with plans for EUS and oncology follow up. - Pancreatic mass causing obstructive jaundice ERCP 07/[address] Edwards with stents placed in pancreatic duct and CBD brushings taken from the duct but likely low yield CA 19-9 level sent out but will take days to return Bilirubin and other LFT all trending down quickly after stents, less jaundice on exam after 24 hours send home on several more days of Cipro as prophylaxis after ERCP, prevent cholangitis d/w Dr. Cardenas, he agrees with outpatient EUS for biopsy and he will see in office recommends referral to tertiary center to be evaluated for resection - Hypokalemia: replaced, normal today d/c to home with specific instructions to call [facility] tomorrow to get scheduled for EUS with biopsy he will follow up with Dr. Cardenas in 2-3 weeks once biopsy taken and results are back Total Time Spent: Greater than 30 minutes This includes examination of the patient, discharge planning, medication reconciliation, and communication with other providers. Discharge Instructions Please refer to the electronic Patient Visit Report (Discharge Instructions) for additional information. Follow-Up Dr. Cardenas in several weeks [facility], first available for EUS with biopsy Dr. Castellon in 1-2 weeks Additional Copies To Bailee Castellon M.D.; Debi Edwards DO; Jose Luis Cardenas MD
[2016-08-06] MEDS ORDERED: HYDR-5688 PO (09:06)
== END 2016-07-06 12:05 | disposition home or self-care (01) | DRG 438 ==
LOC: ENRESERVTM → ENRESERVDT → C.EDB 14:54 → C.4E 22:49
PROVIDERS: ADMIT Hospitalist; ATTEND Internal Medicine
PROC: 0FB98ZX Excision of Common Bile Duct, Via Natural or Artificial Opening Endoscopic, Diagnostic (ICD-10-PCS; principal; 2016-07-05 09:00)
PROC: 0F7D8DZ Dilation of Pancreatic Duct with Intraluminal Device, Via Natural or Artificial Opening Endoscopic (ICD-10-PCS; principal; 2016-07-05 09:00)
PROC: 0F798DZ Dilation of Common Bile Duct with Intraluminal Device, Via Natural or Artificial Opening Endoscopic (ICD-10-PCS; principal; 2016-07-05 09:00)
DX: K86.89 Other specified diseases of pancreas (principal); K83.1 Obstruction of bile duct; E87.1 Hypo-osmolality and hyponatremia; E87.6 Hypokalemia; M10.9 Gout, unspecified; I10 Essential (primary) hypertension; E11.9 Type 2 diabetes mellitus without complications; Z79.84 Long term (current) use of oral hypoglycemic drugs; Z79.899 Other long term (current) drug therapy

== ENCOUNTER 2016-08-05 10:26 | Day surgery (SDC) | payer BC ==
[2016-08-04 18:18] VITALS: BMI 36.0
[~2016-08-05] VITALS: Ht 167.6 cm; Wt 102.0 kg
[~2016-08-05 10:26] MED LIST changes: -CIPR-255 PO; -HYDR-5688 PO; +INDOMETHACIN 50 MG SUPP PR ONE; +LACTATED RINGER'S 1000ML 1,000 ML IV ONE; +LACTATED RINGER'S 1000ML 1,000 ML IV SCH
[2016-08-05] MEDS ORDERED: FENTANYL CITRATE INJ 50 MCG/1 ML 2 ML VIAL IV ONE (10:27)
[2016-08-05] MEDS ORDERED: GLYCOPYRROLATE INJ 0.2 MG/ML VIAL IM ONE (10:27)
[2016-08-05] MEDS ORDERED: BUPIVACAINE 0.5 % 5 MG/1 ML PF 10ML VIAL IM ONE (10:27)
[2016-08-05] MEDS ORDERED: NEOSTIGMINE METHYLSULFATE 5 MG/5 ML SYR IV ONE (10:27)
[2016-08-05] MEDS ORDERED: SUCCINYLCHOLINE CHLORIDE 20 MG/ML 10 ML VIAL IV ONE (10:27)
[2016-08-05] MEDS ORDERED: MIDAZOLAM HCL 1 MG/ML 2ML VIAL IV ONE (10:27)
[2016-08-05] MEDS ORDERED: PROPOFOL IV EMULSION 10 MG/ML 20 ML VIAL IV ONE ×2 (10:27)
[2016-08-05] MEDS ORDERED: LIDOCAINE HCL 2% 2 ML VIAL (20MG/ML) INFIL ONE (10:27)
[2016-08-05 11:00] VITALS: BP 140/86; PULSE 64; TEMP 36.8; O2SAT 97; Ht 167.6 cm; Wt 102.0 kg
[2016-08-05 11:30] LABS: ALB/GLOB RATIO 1.1 (0.9-2); BUN/CREATININE RATIO 9.9 (10-20); CALCIUM 9.3 mg/dl (8.5-10.1); CREATININE 0.91 mg/dl (0.60-1.40)
--- NOTE | 2016-08-05 11:49 | Endo History and Physical ---
History & Physical Date of Service: Aug 05, 2016. Chief Complaint: pancreatic mass Referring Physician: History of Present Illness Patient for repeat ERCP today for a biliary stent change. Was found to have pancreatic cancer about 3 weeks ago and will need 3 months of neoadjunctive therapy. Past Surgical History Hx Cardiac Surgery: No Hx Abdominal Surgery: No Hx Post-Op Nausea and Vomiting: No Hx Cancer Surgery: No Hx Thoracic Surgery: No Hx Orthopedic: Yes (right arm fracture) Hx Urinary Tract Surgery: No Social History Smoking Status: Former Smoker Hx Substance Use: No Hx Alcohol Use: No Allergies Coded Allergies: No Known Allergies (Unverified , 08/04/16) Current Medications Reported Home Medications Medications Dose Route/Sig Max Daily Dose Days Date Category Zyloprim (Allopurinol) 300 Mg Tab 300 Mg PO DAILY 07/04/16 Reported Flaxseed Oil (Flaxseed (Linseed)) 1 Cap Cap 1 Cap PO DAILY 07/04/16 Reported Zestoretic 20MG/25MG (HCTZ/Lisinopril) Tab 1 Tab PO DAILY 07/04/16 Reported Metformin HCl 500 Mg Tab 1 Tab PO BID 07/04/16 Reported Vital Signs Weight (Kilograms): 102.00 Height (Feet): 5 Height (Inches): 6 Date Time Temp Pulse Resp B/P (MAP) Pulse Ox O2 Delivery O2 Flow Rate FiO2 08/05/16 11:00 36.8 64 16 140/86 97 Room Air Physical Exam General Appearance: no apparent distress Respiratory/Chest: Auscultation: breath sounds normal Cardiovascular: Heart Auscultation: RRR Abdomen: Inspection & Palpation: soft Assessment and Plan ERCP today for bliary stent exchange. As the patient will need neoadjunctive thearapy will plan for placement of a covered metal stent today. We have discussed the risks to include bleeding, infection, pain, failed cannulation, and pancreatitis
[2016-08-05] MEDS ORDERED: LACTATED RINGER'S 1000ML 1,000 ML IV PRN (11:58)
[2016-08-05] MEDS ORDERED: FENTANYL CITRATE INJ 50 MCG/1 ML 2 ML VIAL IV PRN (12:00)
[2016-08-05] MEDS ORDERED: ONDANSETRON INJ 2 MG/ML 2 ML VIAL IV PRN ×2 (12:00→13:00)
[2016-08-05] MEDS ORDERED: INDOMETHACIN 50 MG SUPP PR ONE (12:10)
--- NOTE | 2016-08-05 12:50 | [facility] Post Operative Brief Note ---
Immediate Operative Summary Operative Date Aug 05, 2016. Pre-Operative Diagnosis Pancreatic Mass Post-Operative Diagnosis Pancreatic Mass Procedure(s) Performed Endoscopic Retrograde Cholangiopancreatogram with Stent Exchange Surgeon Dr. Edwards Winter Sports Manager Surgeon(s) none Estimated Blood Loss 0 cc Findings Bilairy stricture noted (consistent with history of a pancreatic mass) Specimens none per surgeon Drains Internal covered metal biliary stent placed Anesthesia General Complication(s) None Disposition Recovery Room / PACU
--- NOTE | 2016-08-05 12:52 | Discharge Instructions ---
Endoscopy Patient Instructions Date / Procedure(s) Performed Aug 05, 2016. ERCP Allergy Information Coded Allergies: No Known Allergies (Unverified , 08/04/16) Discharge Date / Findings Aug 05, 2016. Biliary stricture noted Fully covered [employer] Wallflex placed into biliary tree. Medication Instructions Reported Home Medications Medications Dose Route/Sig Max Daily Dose Days Date Category Zyloprim (Allopurinol) 300 Mg Tab 300 Mg PO DAILY 07/04/16 Reported Flaxseed Oil (Flaxseed (Linseed)) 1 Cap Cap 1 Cap PO DAILY 07/04/16 Reported Zestoretic 20MG/25MG (HCTZ/Lisinopril) Tab 1 Tab PO DAILY 07/04/16 Reported Metformin HCl 500 Mg Tab 1 Tab PO BID 07/04/16 Reported Provider Instructions Activity Restrictions - No exercising or heavy lifting for 24 hours. - Do not drink alcohol the day of the procedure. - Do not drive a car or operate machinery until the day after the procedure. - Do not make any important decisions or sign important papers in 24 hours after the procedure. Following Day: - Return to full activity which may include returning to work/school. Diet Liquid diet today Regular diet on 08/06/16 Treatment For Common After Affects For mild abdominal pain, bloating, or excessive gas: - Rest - Eat lightly - Lie on right side Follow-Up Information Liquid diet today Follow-up with oncology and surgical oncology Anesthesia Information What You Should Know You have had a procedure that required some medicine to reduce anxiety and discomfort. This treatment is called moderate sedation. After receiving the treatment, you may be sleepy, but you will be able to breathe on your own. The effects of the treatment may last for several hours. Follow these instructions along with Activity/Diet recommendations noted above: * Do NOT do anything where dizziness or clumsiness would be dangerous. * Rest quietly at home today, then you can be up and about tomorrow. * Have a responsible person stay with you the rest of today. * You may have had an I.V. today. If so, you may take the dressing off later today. Recommendations Call your doctor if: * Trouble breathing * Continuous vomiting for more than 24 hours * Temperature above 101 degrees * Severe abdominal pain or bloating * Pain not relieved by pain medicine ordered * There is increased drainage or redness from any incision * A large amount of rectal bleeding greater than 2-3 tablespoons. (If you had a polyp/s removed or have hemorrhoids, a small amount of blood - from the rectum is to be expected.) * You have any unanswered questions or concerns. IN THE EVENT OF A SERIOUS EMERGENCY, GO TO THE NEAREST EMERGENCY ROOM Your discharge instructions were prepared by provider Debi Edwards. Patient Instructions Signature Page Chance Agustin Patient (or Guardian) Signature/Date: I have read and understand the instructions given to me by my caregivers. Caregiver/RN/Doctor Signature/Date: The above-named patient and/or guardian has received patient instructions on this date. + Original Patient Signature Page (only) stays with chart. Please make copy for patient.
--- NOTE | 2016-08-05 12:53 | DIAGNOSTIC IMAGING REPORT ---
ERCP BILIARY DUCTAL CLINICAL HISTORY: Bile duct exploration COMPARISON STUDY: 07/05/2016 FLUOROSCOPY TIME: 26 seconds.. A fluoroscopic spot images were obtained. FINDINGS: The first image demonstrates a pancreatic stent and biliary enteric stent. The common bile duct was cannulated. Contrast was infused. An expandable metallic biliary enteric stent was placed. IMPRESSION: Fluoroscopic spot images during placement of a expandable metallic biliary enteric stent Electronically signed by: Chilo Trammell M.D. 08/05/2016 12:52 PM Dictated Date/Time: 08/05/2016 12:51 PM
--- NOTE | 2016-08-05 13:23 | GI REPORT ---
Procedure Date: 08/05/2016 11:50 AM Procedure: ERCP Indications: Malignant tumor of the head of pancreas, Stent change Medicines: General Anesthesia, Indocin 100 mg [place] Complications: No immediate complications. Estimated blood loss: Minimal. Estimated Blood Loss: Estimated blood loss was minimal. Procedure: Pre-Anesthesia Assessment: - Prior to the procedure, a History and Physical was performed, and patient medications, allergies and sensitivities were reviewed. The patient's tolerance of previous anesthesia was reviewed. - The risks and benefits of the procedure and the sedation options and risks were discussed with the patient. All questions were answered and informed consent was obtained. - Patient identification and proposed procedure were verified prior to the procedure by the physician, the nurse and the accredited legal secretary. The procedure was verified in the procedure room. - Pre-procedure physical examination revealed no contraindications to sedation. - ASA Grade Assessment: III - A patient with severe systemic disease. - After reviewing the risks and benefits, the patient was deemed in satisfactory condition to undergo the procedure. - The anesthesia plan was to use general anesthesia. - Immediately prior to administration of medications, the patient was re-assessed for adequacy to receive sedatives. - The heart rate, respiratory rate, oxygen saturations, blood pressure, adequacy of pulmonary ventilation, and response to care were monitored throughout the procedure. - The physical status of the patient was re-assessed after the procedure. After obtaining informed consent, the scope was passed under direct vision. Throughout the procedure, the patient's blood pressure, pulse, and oxygen saturations were monitored continuously.The ERCP was accomplished without difficulty. The patient tolerated the procedure well. The SCOPE was introduced through the mouth, and advanced to the duodenum and used to inject contrast into the bile duct. Findings: A biliary stent was visible on the data systems manager film. The esophagus was successfully intubated under direct vision without detailed examination of the pharynx, larynx, and associated structures, and upper GI tract. The upper GI tract was grossly normal. Two biliary pancreatic stents originating in the biliary tree and the pancreatic duct were emerging from the major papilla. The stents were visibly patent. A biliary sphincterotomy had been performed. The sphincterotomy appeared open. Two stents were removed from the biliary tree and the pancreatic duct using a snare. The bile duct was deeply cannulated with the short-nosed traction sphincterotome (Omni 35) and 0.035 in [employer] guidewire. Contrast was injected. I personally interpreted the bile duct images. Contrast extended to the hepatic ducts. The middle third of the main bile duct contained a single segmental stenosis 15 to 18 mm in length consistent with his known pancreatic mass. One 10 Fr by 6 cm covered metal stent was placed 6 cm into the common bile duct ([employer] Wallflex RX REF [id number], Lot [id number]). Bile flowed through the stent. The stent was in good position. The total fluoroscopy exposure time was 26 seconds. The endoscope was withdrawn from the patient. Impression: - Two visibly patent stents from the biliary tree and the pancreatic duct were seen in the major papilla. - Prior biliary endoscopic sphincterotomy appeared open. - Two stents were removed from the biliary tree and the pancreatic duct. - A segmental biliary stricture was found. The stricture was malignant appearing. - One covered metal stent was placed into the biliary tree. Recommendation: - Discharge patient to home (ambulatory). - Full liquid diet today. - Observe patient's clinical course following today's ERCP with therapeutic intervention. - Repeat ERCP in 6-9 months to exchange stent. Debi Edwards D.O. Debi Edwards, 08/05/2016 1:22:37 PM This report has been signed electronically. Note Initiated On: 08/05/2016 11:50 AM I attest to the content of the Intraoperative Record and orders documented therein, exceptions below
[2016-08-05 14:10] VITALS: BP 120/60; PULSE 56; TEMP 36.6; O2SAT 91
--- NOTE | 2016-08-05 14:23 | Anesthesiology Progress Note ---
Anesthesia Post Op Note Date & Time Aug 05, 2016 at 13:21 Vital Signs Vital Signs Past 12 Hours Date Time Temp Pulse Resp B/P (MAP) Pulse Ox O2 Delivery O2 Flow Rate FiO2 08/05/16 11:00 36.8 64 16 140/86 97 Room Air Notes Mental Status: alert / awake / arousable, participated in evaluation Pt Amnestic to Procedure: Yes Nausea / Vomiting: adequately controlled Pain: adequately controlled Airway Patency, RR, SpO2: stable & adequate BP & HR: stable & adequate Hydration State: stable & adequate Anesthetic Complications: no major complications apparent Pt had ERCP in 06/2016 and did fine. He received 10 mg rocuronium and 160 mg succinylcholine w/ induction at that time. Today he received 7 mg lj and 180 mg sux. 10 or 15 minutes after he received those drugs, when the procedure was finished, he had no twitches. I gave an additional 2 mg midazolam and turned the gas back on. After another few minutes, well beyond the normal duration of succinylcholine, he still had no twitches and a weak post-tetanic response. Given his previous normal experience w/ sux, I did not suspect a qualitative pseudocholinesterase deficiency (abnormal enzymes), but I did suspect a quantitative deficiency (low levels of normal enzymes), possibly related to his pancreatic CA. We therefore took him to PACU intubated. We had a ventilator waiting there and a propofol drip. After 15 or 20 minutes of mechanical ventilation and sedation w/ stable vitals, I noted the pt to have 4 twitches but w/ definite fade. This pattern is outside energy sales representatives of neuromuscular blockade ( NMB) from rocuronium, not succinylcholine. Residual blockade from lj is nearly impossible at the dose given unless the pt has some condition causing him to be more sensitive to non-depolarizing neuromuscular blockers like lj. 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 This would be supported by the fact that the pt began to get a little weak after the small dose of lj given, which should never happen at that dose w/ the pt's size. 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 I therefore decided to reverse the NMB w/ 3 mg neostigmine and 0.4 mg glycopyrrolate. After 5 minutes, the pt had 4 strong twitches. I turned off the propofol sedation and after several minutes, the pt began to arouse. He was following commands, opening his eyes, pulling adequate tidal volumes, satting well. We suctioned and extubated to facemask w/out incident. He continues to do well.
[2016-08-05 14:30] VITALS: PULSE 52; TEMP 36.2
[2016-08-05 15:15] VITALS: BP 111/63; O2SAT 93
[2016-08-06] MEDS ORDERED: LACTATED RINGER'S 1000ML 1,000 ML IV SCH (06:00)
[2016-08-06] MEDS ORDERED: HYDR-5688 PO (09:06)
== END 2016-08-05 15:55 | disposition home or self-care (01) ==
LOC: C.ACU 10:26
PROVIDERS: ATTEND Internal Medicine Gastroenterology
DX: C25.9 Malignant neoplasm of pancreas, unspecified (principal); I10 Essential (primary) hypertension; E11.9 Type 2 diabetes mellitus without complications; M10.9 Gout, unspecified; E66.9 Obesity, unspecified; Z68.36 Body mass index [BMI] 36.0-36.9, adult; Z98.890 Other specified postprocedural states

== ENCOUNTER → 2016-08-06 | Day surgery (SDC) | payer BC ==
[2016-08-04 18:41] VITALS: BMI 36.0
[~2016-08-06] VITALS: Ht 167.6 cm; Wt 102.0 kg
[~2016-08-06] MED LIST changes: +BUPIVACAINE 0.5 % 5 MG/1 ML PF 10ML VIAL ONE; +CEFAZOLIN 2000 MG/60 ML D5W IV SCH; +CEFAZOLIN SOD 1 GM VIAL ONE; +FENTANYL CITRATE INJ 50 MCG/1 ML 2 ML VIAL IV PRN; +FENTANYL CITRATE INJ 50 MCG/1 ML 2 ML VIAL ONE; +GLYCOPYRROLATE INJ 0.2 MG/ML VIAL ONE; +HEPARIN SOD (PORCINE) 1000 UNIT/ML 10 ML VIAL ONE; +HYDR-5688 PO; +HYDROCODONE/ACETAMOPHEN 5/325MG TAB PO PRN; -INDOMETHACIN 50 MG SUPP PR ONE; -LACTATED RINGER'S 1000ML 1,000 ML IV ONE; +LACTATED RINGER'S 1000ML 1,000 ML IV PRN; +LIDOCAINE HCL 1% 20 ML VIAL ONE; +LIDOCAINE HCL 2% 2 ML VIAL (20MG/ML) ONE; +MIDAZOLAM HCL 1 MG/ML 2ML VIAL ONE; +MoRPHine SULFATE 2 MG/ML CARP IV PRN; +NEOSTIGMINE METHYLSULFATE 5 MG/5 ML SYR ONE; +ONDANSETRON INJ 2 MG/ML 2 ML VIAL IV PRN; +PROPOFOL IV EMULSION 10 MG/ML 20 ML VIAL IV ONE; +SUCCINYLCHOLINE CHLORIDE 20 MG/ML 10 ML VIAL IV ONE; +THROMBIN FOR SOLN 20000 UNIT KIT ONE
[2016-08-06 08:30] VITALS: BP 137/75; PULSE 57; TEMP 36.9; O2SAT 96; Ht 167.6 cm; Wt 102.0 kg
--- NOTE | 2016-08-06 09:05 | Discharge Instructions ---
Discharge Instructions Date of Service Aug 06, 2016. Visit Reason for Visit: Pancreatic Cancer, Diabetes Mellitus Discharge Discharge Diagnosis / Problem: A-port placement Discharge Goals Goal(s): Improve disease control Activity Recommendations Activity Limitations: as noted below Shower/Bathe: keep incision dry (for 2 days) Driving or Machine Use: if not taking [place] [facility]est[facility] . Post Anesthesia Instructions: If you have had General Anesthesia or IV Sedation: * Do not drive today. * Resume driving when surgeon permits. * Do not make important decisions or sign legal documents today. * Call surgeon for: 1. Temperature elevations greater than 101 degrees F. 2. Uncontrollable pain. 3. Excessive bleeding. 4. Persistent nausea and vomiting. 5. Medication intolerance (nausea, vomiting or rash). * For nausea and vomiting use only clear liquids such as: tea, soda, bouillon until nausea subsides, then gradually increase diet as tolerated. * If you have any concerns or questions, call your surgeon's office. If physician is unavailable and it is an emergency, call 911 or go to the nearest emergency room. . Instructions / Follow-Up Instructions / Follow-Up Dr. Galdamez's office in 2 weeks for suture removal, call [phone] for any questions OK for the port to be used Diet Recommendations Recommended Home Diet: no limitations Pending Studies Studies pending at discharge: no Medical Emergencies . Who to Call and When: Medical Emergencies: If at any time you feel your situation is an emergency, please call 911 immediately. . Non-Emergent Contact Non-Emergency issues call your: Surgeon Call Non-Emergent contact if: you have a fever, temperature is above 101.5, your pain is not controlled, wound has increased redness . . "Provider Documentation" section prepared by Sai Coronel. .
--- NOTE | 2016-08-06 09:31 | History & Physical Bridge Note ---
H&P Re-Evaluation Bridge Note: I have examined the patient, reviewed the History & Physical and in the interval since the performance of the History & Physical I have noted the following changes of clinical significance: No changes noted
--- NOTE | 2016-08-06 10:40 | [facility] Post Operative Brief Note ---
Immediate Operative Summary Operative Date Aug 06, 2016. Pre-Operative Diagnosis Carcinoma of head of pancreas Post-Operative Diagnosis Carcinoma of head of pancreas Procedure(s) Performed Insertion of A-Port into Left Cephalic Vein Surgeon Dr. Bebe Galdamez Eye Care Professional Surgeon(s) none Estimated Blood Loss 10mL Findings placed via Lt cephalic vein Specimens none per surgeon Anesthesia local / sedation Complication(s) None Disposition Recovery Room / PACU
--- NOTE | 2016-08-06 10:58 | Anesthesiology Progress Note ---
Anesthesia Post Op Note Date & Time Aug 06, 2016 at 10:57 Vital Signs Pain Intensity: 0 Vital Signs Past 12 Hours Date Time Temp Pulse Resp B/P (MAP) Pulse Ox O2 Delivery O2 Flow Rate FiO2 08/06/16 10:55 61 12 127/78 92 Room Air 08/06/16 10:45 65 14 123/75 92 Room Air 08/06/16 10:35 36.2 62 16 129/74 97 Mask 10 08/06/16 08:30 36.9 57 20 137/75 (95) 96 Room Air Notes Mental Status: alert / awake / arousable, participated in evaluation Pt Amnestic to Procedure: No (recall as expected) Nausea / Vomiting: adequately controlled Pain: adequately controlled Airway Patency, RR, SpO2: stable & adequate BP & HR: stable & adequate Hydration State: stable & adequate Anesthetic Complications: no major complications apparent Pt doing well.
[2016-08-06 11:05] VITALS: BP_DIAS 76
--- NOTE | 2016-08-06 11:13 | DIAGNOSTIC IMAGING REPORT ---
CHEST ONE VIEW PORTABLE CLINICAL HISTORY: port placement tube position COMPARISON STUDY: No previous studies for comparison. FINDINGS: Central catheter place in superior vena cava. No evidence pneumothorax. Lungs remain clear. IMPRESSION: Central catheter placed in the superior vena cava. No evidence pneumothorax. Electronically signed by: Jerad Jha M.D. 08/06/2016 11:12 AM Dictated Date/Time: 08/06/2016 11:11 AM
[2016-08-06 11:20] VITALS: BP_SYST 149; PULSE 56; TEMP 37; O2SAT 93
--- NOTE | 2016-08-06 16:43 | OPERATIVE REPORT ---
DATE OF OPERATION: 08/06/2016 NAME OF OPERATION: Access port placement. PREOPERATIVE DIAGNOSIS: Pancreatic cancer. POSTOPERATIVE DIAGNOSIS: Same. STAFF SURGEON: Dr. Galdamez. ANESTHESIA: 1% plain lidocaine with sedation. DESCRIPTION OF PROCEDURE: The patient was brought in the operating room and placed on the operating table in supine position. His upper chest was prepped and draped in usual fashion. Pneumatic stockings were in place. Using 1% plain lidocaine, skin and subcutaneous tissue over the left deltopectoral groove were anesthetized. Incision made carrying dissection down and identifying a very thin walled cephalic vein. It was ligated distally using 2-0 silk suture and then opened. I was able to pass the catheter under fluoroscopy into the superior vena cava. Interestingly, the cephalic vein did traversed relatively far above the clavicle. I did use some contrast with fluoroscopy to identify the tip of the catheter as it was somewhat difficult to see. At this point after the catheter was easily flushed with heparinized solution, a pocket was fashioned in the chest wall. The port attached to the catheter. The port placed into the pocket and secured to the chest wall using 3-0 Prolene suture. The port having been flushed with heparinized solution. The site was irrigated with antibiotic solution. Then the subcutaneous tissue reapproximated using 2-0 chromic catgut suture, then the skin reapproximated using 4-0 nylon suture. The patient was transferred to recovery room in stable condition. I attest to the content of the Intraoperative Record and any orders documented therein. Any exception s are noted below.
== END | disposition home or self-care (01) ==
LOC: C.ACU 08:04
PROVIDERS: ATTEND Surgery
DX: C25.0 Malignant neoplasm of head of pancreas (principal); E78.5 Hyperlipidemia, unspecified; E11.9 Type 2 diabetes mellitus without complications; I10 Essential (primary) hypertension; M10.9 Gout, unspecified; R74.8 Abnormal levels of other serum enzymes; Z87.891 Personal history of nicotine dependence; Z79.84 Long term (current) use of oral hypoglycemic drugs; Z79.899 Other long term (current) drug therapy

== ENCOUNTER → 2016-08-22 | Outpatient (CLI) | payer BC ==
[~2016-08-22] MED LIST changes: -BUPIVACAINE 0.5 % 5 MG/1 ML PF 10ML VIAL ONE; -CEFAZOLIN 2000 MG/60 ML D5W IV SCH; -CEFAZOLIN SOD 1 GM VIAL ONE; -FENTANYL CITRATE INJ 50 MCG/1 ML 2 ML VIAL IV PRN; -FENTANYL CITRATE INJ 50 MCG/1 ML 2 ML VIAL ONE; -GLYCOPYRROLATE INJ 0.2 MG/ML VIAL ONE; -HEPARIN SOD (PORCINE) 1000 UNIT/ML 10 ML VIAL ONE; -HYDROCODONE/ACETAMOPHEN 5/325MG TAB PO PRN; -LACTATED RINGER'S 1000ML 1,000 ML IV PRN; -LACTATED RINGER'S 1000ML 1,000 ML IV SCH; -LIDOCAINE HCL 1% 20 ML VIAL ONE; -LIDOCAINE HCL 2% 2 ML VIAL (20MG/ML) ONE; -MIDAZOLAM HCL 1 MG/ML 2ML VIAL ONE; -MoRPHine SULFATE 2 MG/ML CARP IV PRN; -NEOSTIGMINE METHYLSULFATE 5 MG/5 ML SYR ONE; -ONDANSETRON INJ 2 MG/ML 2 ML VIAL IV PRN; -PROPOFOL IV EMULSION 10 MG/ML 20 ML VIAL IV ONE; -SUCCINYLCHOLINE CHLORIDE 20 MG/ML 10 ML VIAL IV ONE; -THROMBIN FOR SOLN 20000 UNIT KIT ONE
[2016-08-22 12:26] LABS: BASO % 0.4 %; BASO ABS # 0.06 K/uL (0-0.2); COMPLETE YES; EOS % 3.9 %; HEMATOCRIT 42.5 % (42-52); IG% 2.2 %; LYMPH % 18.1 %; LYMPH ABS # 2.69 K/uL (1.2-3.4); MEAN CELL VOLUME 91.2 fL (80-100); MEAN CORPUSCULAR HEMOGLOBIN 32.6 pg (25-34); MEAN CORPUSCULAR HGB CONC 35.8 g/dl (32-36); MEAN PLATELET VOLUME 9.2 fL (7.4-10.4); MONO % 6.4 %; PLATELET COUNT 284 K/uL (130-400); RED BLOOD COUNT 4.66 M/uL (4.7-6.1); WHITE BLOOD COUNT 14.84 K/uL (4.8-10.8)
[2016-08-22 12:41] LABS: ALT/SGPT 36 U/L (12-78); BLOOD UREA NITROGEN 10 mg/dl (7-18); BUN/CREATININE RATIO 10.9 (10-20); CALCIUM 9.4 mg/dl (8.5-10.1); CARBON DIOXIDE 30 mmol/L (21-32); CHLORIDE 101 mmol/L (98-107); CREATININE 0.87 mg/dl (0.60-1.40); GLUCOSE 133 mg/dl (70-99); POTASSIUM 3.5 mmol/L (3.5-5.1); SODIUM 136 mmol/L (136-145)
[2016-08-22 12:44] LABS: ALB/GLOB RATIO 1.2 (0.9-2); ALKALINE PHOSPHATASE 134 U/L (45-117); AST/SGOT 25 U/L (15-37)
== END | disposition home or self-care (01) ==
LOC: C.LABPVFM 08:45
PROVIDERS: ATTEND Internal Medicine Hematology & Oncology
DX: C25.0 Malignant neoplasm of head of pancreas (principal)

== ENCOUNTER → 2016-09-05 | Outpatient (CLI) | payer BC ==
[2016-09-05 13:01] LABS: BASO % 0.6 %; BASO ABS # 0.05 K/uL (0-0.2); COMPLETE YES; EOS % 2.9 %; HEMATOCRIT 42.8 % (42-52); IG% 0.6 %; LYMPH % 27.2 %; LYMPH ABS # 2.27 K/uL (1.2-3.4); MEAN CELL VOLUME 92.8 fL (80-100); MEAN CORPUSCULAR HEMOGLOBIN 32.3 pg (25-34); MEAN CORPUSCULAR HGB CONC 34.8 g/dl (32-36); MEAN PLATELET VOLUME 9.8 fL (7.4-10.4); MONO % 11.4 %; NEUT % 57.3 %; PLATELET COUNT 190 K/uL (130-400); RED BLOOD COUNT 4.61 M/uL (4.7-6.1); WHITE BLOOD COUNT 8.35 K/uL (4.8-10.8)
[2016-09-05 13:14] LABS: ALT/SGPT 45 U/L (12-78); BLOOD UREA NITROGEN 10 mg/dl (7-18); BUN/CREATININE RATIO 10.1 (10-20); CALCIUM 9.6 mg/dl (8.5-10.1); CARBON DIOXIDE 27 mmol/L (21-32); CHLORIDE 100 mmol/L (98-107); CREATININE 0.94 mg/dl (0.60-1.40); GLUCOSE 144 mg/dl (70-99); POTASSIUM 3.5 mmol/L (3.5-5.1); SODIUM 136 mmol/L (136-145)
[2016-09-05 13:17] LABS: ALB/GLOB RATIO 1.2 (0.9-2); ALKALINE PHOSPHATASE 145 U/L (45-117); AST/SGOT 31 U/L (15-37)
== END | disposition home or self-care (01) ==
LOC: C.LABPVFM 08:20
PROVIDERS: ATTEND Internal Medicine Hematology & Oncology
DX: C25.0 Malignant neoplasm of head of pancreas (principal)

== ENCOUNTER → 2016-09-19 | Outpatient (CLI) | payer BC ==
[2016-09-19 12:55] LABS: BASO % 0.2 %; BASO ABS # 0.03 K/uL (0-0.2); COMPLETE YES; EOS % 1.6 %; HEMATOCRIT 37.5 % (42-52); IG% 1.8 %; MEAN CELL VOLUME 94.9 fL (80-100); MEAN CORPUSCULAR HEMOGLOBIN 33.7 pg (25-34); MEAN CORPUSCULAR HGB CONC 35.5 g/dl (32-36); MEAN PLATELET VOLUME 9.6 fL (7.4-10.4); MONO % 9.8 %; NEUT % 68.6 %; PLATELET COUNT 193 K/uL (130-400); RED BLOOD COUNT 3.95 M/uL (4.7-6.1); WHITE BLOOD COUNT 12.24 K/uL (4.8-10.8)
[2016-09-19 13:29] LABS: ALT/SGPT 30 U/L (12-78); BLOOD UREA NITROGEN 10 mg/dl (7-18); BUN/CREATININE RATIO 11.3 (10-20); CALCIUM 9.1 mg/dl (8.5-10.1); CARBON DIOXIDE 26 mmol/L (21-32); CHLORIDE 105 mmol/L (98-107); CREATININE 0.84 mg/dl (0.60-1.40); GLUCOSE 175 mg/dl (70-99); POTASSIUM 3.7 mmol/L (3.5-5.1); SODIUM 138 mmol/L (136-145)
[2016-09-19 13:32] LABS: ALB/GLOB RATIO 1.1 (0.9-2); ALKALINE PHOSPHATASE 149 U/L (45-117); AST/SGOT 24 U/L (15-37)
== END | disposition home or self-care (01) ==
LOC: C.LABPVFM 07:33
PROVIDERS: ATTEND Internal Medicine Hematology & Oncology
DX: C25.0 Malignant neoplasm of head of pancreas (principal)

== ENCOUNTER → 2016-10-02 | Outpatient (CLI) | payer BC ==
[~2016-10-02] MED LIST changes: +OPTIRAY 320 IV PRN
--- NOTE | 2016-10-02 12:15 | DIAGNOSTIC IMAGING REPORT ---
(CHEST) THORAX WITH CT DOSE: HISTORY: PANCREATIC CA TECHNIQUE: Multiaxial CT images of the chest were performed following the intravenous administration of contrast. A dose lowering technique was utilized adhering to the principles of ALARA. COMPARISON: 07/05/2016 FINDINGS: Unchanged exam. Chronic bibasilar interstitial change considered stable. Unchanging shotty axillary nodes. Unchanging pleural based nodule transaxial images 74 unchanging peripheral right middle lobe nodule transaxial image 140. No evidence for new interval or progressive process. Stable benign basilar pleural thickening. Apparent interval common bile duct stent exchange compared to the prior exam. Air within the gallbladder related to the stent placement as well as mild air within the bladder ductal system. Probable small gallstones. IMPRESSION: 1. Stable evaluation of the chest including unchanging minimal nodularity and low suspicion axillary adenopathy. 2. No evidence for new interval or progressive process. The above report was generated using voice recognition software. It may contain grammatical, syntax or spelling errors. Electronically signed by: Jerad Jha M.D. 10/02/2016 12:14 PM Dictated Date/Time: 10/02/2016 12:07 PM
--- NOTE | 2016-10-02 12:16 | DIAGNOSTIC IMAGING REPORT ---
CT ABD/PELVIS IV AND ORAL CONT CLINICAL HISTORY: PANCREATIC CA PAINLESS JAUNDICE COMPARISON STUDY: 07/04/2016 TECHNIQUE: Following the IV administration of 115 mL of Optiray-320, CT scan of the abdomen and pelvis was performed from the lung bases to the proximal femurs. Images are reviewed in the axial, sagittal, and coronal planes. IV contrast was administered without complication. A dose lowering technique was utilized adhering to the principles of ALARA. CT DOSE: 1554.42 mGy.cm FINDINGS: Lower chest: There are bibasal or dependent opacities likely atelectatic. Liver: No focal hepatic masses are visualized. There is pneumobilia. There is a biliary enteric stent present. Gallbladder: Cholelithiasis. There is air within the gallbladder likely secondary to the patient's biliary enteric stent. Spleen: Normal in size and attenuation. Pancreas: There is persistent dilatation of the main pancreatic duct. There is a suggestion of a 2 cm pancreatic head mass. There is no evidence of superior mesenteric artery encasement. The mass abuts the superior mesenteric vein. Adrenal glands: Unremarkable. Kidneys: There is a 1 cm right renal hypodensity likely representing a cyst Bowel: There are no transition zones indicate bowel obstruction. There is no acute diverticulitis. There is no evidence of acute appendicitis Peritoneum: There is no intraperitoneal free air or abdominal ascites. There is a small fat-containing umbilical hernia. There is small fat-containing right inguinal hernia Vasculature: The abdominal aorta is normal in course and caliber. Adenopathy: There is a persistent mildly enlarged precaval lymph node. There is a 12 mm issa hepatis lymph node. Pelvic viscera: The prostate is mildly enlarged Skeletal structures: No destructive osseous lesions are seen. IMPRESSION: 1. Persistent pancreatic head mass which currently measures approximately 2 cm. There is secondary dilatation of the main pancreatic duct 2. Mildly enlarged precaval and issa hepatis lymph node 3. Interval placement of a biliary enteric stent 4. Cholelithiasis 5. No evidence of hepatic metastasis Electronically signed by: Chilo Trammell M.D. 10/02/2016 12:14 PM Dictated Date/Time: 10/02/2016 12:07 PM
== END | disposition home or self-care (01) ==
LOC: C.CTS 11:35
PROVIDERS: ATTEND Internal Medicine Hematology & Oncology
DX: C25.0 Malignant neoplasm of head of pancreas (principal); K80.20 Calculus of gallbladder without cholecystitis without obstruction

== ENCOUNTER → 2016-10-17 | Outpatient (CLI) | payer BC ==
[~2016-10-17] MED LIST changes: -OPTIRAY 320 IV PRN
[2016-10-17 12:38] LABS: BASO % 0.7 %; BASO ABS # 0.05 K/uL (0-0.2); COMPLETE YES; EOS % 2.5 %; HEMATOCRIT 36.3 % (42-52); IG% 0.8 %; LYMPH % 25.7 %; LYMPH ABS # 1.97 K/uL (1.2-3.4); MEAN CELL VOLUME 95.3 fL (80-100); MEAN CORPUSCULAR HEMOGLOBIN 33.9 pg (25-34); MEAN CORPUSCULAR HGB CONC 35.5 g/dl (32-36); MEAN PLATELET VOLUME 10.2 fL (7.4-10.4); NEUT % 58.3 %; PLATELET COUNT 131 K/uL (130-400); RED BLOOD COUNT 3.81 M/uL (4.7-6.1); WHITE BLOOD COUNT 7.67 K/uL (4.8-10.8)
[2016-10-17 13:14] LABS: ALT/SGPT 32 U/L (12-78); AST/SGOT 27 U/L (15-37); BLOOD UREA NITROGEN 11 mg/dl (7-18); BUN/CREATININE RATIO 14.4 (10-20); CARBON DIOXIDE 26 mmol/L (21-32); CHLORIDE 104 mmol/L (98-107); CREATININE 0.74 mg/dl (0.60-1.40); GLUCOSE 130 mg/dl (70-99); POTASSIUM 3.4 mmol/L (3.5-5.1); SODIUM 137 mmol/L (136-145)
[2016-10-17 13:16] LABS: ALB/GLOB RATIO 1.1 (0.9-2); ALKALINE PHOSPHATASE 186 U/L (45-117)
== END | disposition home or self-care (01) ==
LOC: C.LABPVFM 07:34
PROVIDERS: ATTEND Internal Medicine Hematology & Oncology
DX: C25.0 Malignant neoplasm of head of pancreas (principal)

== ENCOUNTER → 2016-10-31 | Outpatient (CLI) | payer BC ==
[2016-10-31 12:19] LABS: BASO % 0.5 %; BASO ABS # 0.04 K/uL (0-0.2); COMPLETE YES; EOS % 1.2 %; HEMATOCRIT 36.5 % (42-52); IG% 0.7 %; LYMPH % 21.9 %; LYMPH ABS # 1.64 K/uL (1.2-3.4); MEAN CELL VOLUME 98.4 fL (80-100); MEAN CORPUSCULAR HEMOGLOBIN 33.2 pg (25-34); MEAN CORPUSCULAR HGB CONC 33.7 g/dl (32-36); MEAN PLATELET VOLUME 10.5 fL (7.4-10.4); NEUT % 61.7 %; PLATELET COUNT 101 K/uL (130-400); RED BLOOD COUNT 3.71 M/uL (4.7-6.1)
[2016-10-31 13:03] LABS: BLOOD UREA NITROGEN 8 mg/dl (7-18); CREATININE 0.67 mg/dl (0.60-1.40); GLUCOSE 135 mg/dl (70-99)
[2016-10-31 13:04] LABS: ALT/SGPT 30 U/L (12-78); AST/SGOT 30 U/L (15-37); BUN/CREATININE RATIO 12.5 (10-20); CALCIUM 9.6 mg/dl (8.5-10.1); CARBON DIOXIDE 28 mmol/L (21-32); CHLORIDE 102 mmol/L (98-107); POTASSIUM 3.2 mmol/L (3.5-5.1); SODIUM 138 mmol/L (136-145)
[2016-10-31 13:06] LABS: ALB/GLOB RATIO 1.1 (0.9-2); ALKALINE PHOSPHATASE 193 U/L (45-117)
== END | disposition home or self-care (01) ==
LOC: C.LABPVFM 08:17
PROVIDERS: ATTEND Internal Medicine Hematology & Oncology
DX: C25.0 Malignant neoplasm of head of pancreas (principal)

== ENCOUNTER → 2016-11-20 | Outpatient (CLI) | payer BC ==
[~2016-11-20] MED LIST changes: +OPTIRAY 320 IV PRN
--- NOTE | 2016-11-20 12:57 | DIAGNOSTIC IMAGING REPORT ---
ABD/PELVIS IV AND ORAL CONT CLINICAL HISTORY: 66 years-old Male presenting with PANCREATIC CA C25.0. TECHNIQUE: Multidetector CT of the abdomen and pelvis was performed after the administration of oral and intravenous contrast. IV contrast: 93 mL of Optiray 320. A dose lowering technique was used consistent with the principles of ALARA (as low as reasonably achievable). COMPARISON: 10/02/2016. CT DOSE (mGy.cm): The estimated cumulative dose is 1056.70 mGycm. 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 Lung bases: Minimal dependent changes likely atelectasis. Multichamber enlargement of heart. Mitral annular and coronary artery calcification. No pericardial or pleural effusion. Liver: Normal morphology. No liver lesion. Patent hepatic vasculature. Biliary: Metallic common bile duct stent may contain layering high density material in the distal portion (series 3 image 163). Expected pneumobilia. No significant intrahepatic biliary ductal dilatation. Normal gallbladder. Pancreas: Pancreatic ductal dilatation to the level of the pancreatic head, where there is abrupt transition of caliber. The known pancreatic head mass is poorly defined on the current exam. No enlargement of the pancreatic head to suggest progression of disease. No increase infiltration of surrounding fat planes. The superior mesenteric artery is preserved. The mass abuts but does not invade or narrow the portal confluence. Spleen: Calcification at the inferior pole of the spleen may represent prior trauma or infarct. Adrenal glands: Normal. Kidneys and ureters: Small hypodensity in the right knee, likely cyst. No hydronephrosis. No nephrolithiasis. Bladder: Normal. Pelvic organs: Prostate enlargement likely secondary to benign prostatic hyperplasia. Bowel: Normal. No bowel obstruction. Peritoneal cavity: No free fluid or intraperitoneal gas. Lymph nodes: Enlarged area pancreatic lymph nodes stable to slightly decreased in size from prior. The largest lymph node is located in the portacaval region measuring 13 mm in the short axis, previously 14 mm. And additional enlarged lymph node near the issa hepatis measures 10 mm in the short axis, previously 11 mm when remeasured at a comparable level. Vasculature: Atherosclerosis of the normal caliber abdominal aorta. IVC patent. Abdominal wall: Normal. Musculoskeletal: Degenerative changes of the spine. IMPRESSION: 1. Findings consistent with choledocholithiasis within the metallic common bile duct stent. No increased biliary ductal dilatation. 2. The pancreatic head mass has not increased in size and is less apparent on the current exam allowing for the single postcontrast phase. 3. Stable to slight interval decreased size of peripancreatic lymphadenopathy. Electronically signed by: Keo Haines M.D. 11/20/2016 12:56 PM Dictated Date/Time: 11/20/2016 12:21 PM
== END | disposition home or self-care (01) ==
LOC: C.CTS 11:55
PROVIDERS: ATTEND Internal Medicine Hematology & Oncology
DX: C25.0 Malignant neoplasm of head of pancreas (principal)

== ENCOUNTER → 2017-01-16 | Outpatient (CLI) | payer BC ==
[~2017-01-16] MED LIST changes: -OPTIRAY 320 IV PRN
[2017-01-16 13:11] LABS: BLOOD UREA NITROGEN 4 mg/dl (7-18); BUN/CREATININE RATIO 5.4 (10-20); CARBON DIOXIDE 30 mmol/L (21-32); CHLORIDE 100 mmol/L (98-107); CREATININE 0.81 mg/dl (0.60-1.40); GLUCOSE 132 mg/dl (70-99); POTASSIUM 3.3 mmol/L (3.5-5.1); SODIUM 135 mmol/L (136-145)
== END | disposition home or self-care (01) ==
LOC: C.LABPVFM 07:53
PROVIDERS: ATTEND Family Medicine
DX: E11.9 Type 2 diabetes mellitus without complications (principal); E87.6 Hypokalemia

== ENCOUNTER → 2017-02-17 | Outpatient (CLI) | payer BC ==
[~2017-02-17] MED LIST changes: -HYDR-5688 PO; +OPTIRAY 320 IV PRN
[2017-02-17 13:06] LABS: BASO % 0.6 %; BASO ABS # 0.04 K/uL (0-0.2); EOS % 3.8 %; EOS ABS # 0.25 K/uL (0-0.5); HEMATOCRIT 38.9 % (42-52); HEMOGLOBIN 13.4 g/dL (14.0-18.0); IG# 0.01 K/uL (0.00-0.02); LYMPH % 20.9 %; LYMPH ABS # 1.36 K/uL (1.2-3.4); MEAN CELL VOLUME 92.6 fL (80-100); MEAN CORPUSCULAR HEMOGLOBIN 31.9 pg (25-34); MEAN CORPUSCULAR HGB CONC 34.4 g/dl (32-36); MEAN PLATELET VOLUME 9.2 fL (7.4-10.4); MONO % 4.8 %; MONO ABS # 0.31 K/uL (0.11-0.59); NEUT % 69.7 %; NEUT ABS # 4.55 K/uL (1.4-6.5); PLATELET COUNT 229 K/uL (130-400); RED CELL DISTRIBUTION WIDTH CV 13.7 % (11.5-14.5); RED CELL DISTRIBUTION WIDTH SD 46.2 fL (36.4-46.3); WHITE BLOOD COUNT 6.52 K/uL (4.8-10.8)
[2017-02-17 13:35] LABS: ALT/SGPT 27 U/L (12-78); AST/SGOT 21 U/L (15-37); BLOOD UREA NITROGEN 12 mg/dl (7-18); CALCIUM 9.3 mg/dl (8.5-10.1); CARBON DIOXIDE 25 mmol/L (21-32); CREATININE 0.72 mg/dl (0.60-1.40); GLUCOSE 124 mg/dl (70-99); POTASSIUM 3.4 mmol/L (3.5-5.1); SODIUM 135 mmol/L (136-145)
[2017-02-17 13:37] LABS: ALKALINE PHOSPHATASE 137 U/L (45-117); TOTAL PROTEIN 7.6 gm/dl (6.4-8.2)
--- NOTE | 2017-02-17 15:10 | DIAGNOSTIC IMAGING REPORT ---
CT OF THE CHEST WITH IV CONTRAST CLINICAL HISTORY: Pancreatic cancer. COMPARISON STUDY: Chest CT October 02, 2016. TECHNIQUE: Following IV administration of 116 mL of Optiray-320, helical axial images of the chest were obtained. Sagittal and coronal reconstructions were viewed as well as maximal intensity projections on an independent 3-D workstation. A dose lowering technique was utilized adhering to the principles of ALARA. FINDINGS: No enlarged axillary, mediastinal or hilar lymph nodes are present. Mild cardiomegaly is noted. There is extensive coronary artery calcification. No pericardial effusion is noted. There is no central pulmonary embolus. Several pulmonary nodules are unchanged since initial chest CT of July 05, 2016 and include a 7 mm subpleural right middle lobe nodule shown on image 140 of 301. A 3 mm subpleural right upper lobe nodule shown image 77 is unchanged. Central airways are patent. There is no consolidation to suggest pneumonia. No suspicious osseous lesions are present. No pneumothorax or pleural effusion is noted. The abdomen and pelvis will be reported separately. Visualized portions of the upper abdomen demonstrate findings consistent with a Whipple procedure with infiltration within the operative bed which is not unexpected. IMPRESSION: 1. No convincing evidence for metastatic disease within the chest. 2. No change in several right lung nodules since CT of July 05, 2016. These are likely benign but can be assessed on subsequent imaging studies to ensure stability. Electronically signed by: Mahendra Geiger M.D. 02/17/2017 3:09 PM Dictated Date/Time: 02/17/2017 3:00 PM
--- NOTE | 2017-02-17 15:12 | DIAGNOSTIC IMAGING REPORT ---
ABD/PELVIS IV AND ORAL CONT CT DOSE: 1639.18 mGy.cm HISTORY: Pancreatic carcinoma. Postoperative evaluation PANCREATIC CANCER TECHNIQUE: Multiaxial CT images of the abdomen and pelvis were performed following the use of intravenous and oral contrast. A dose lowering technique was utilized adhering to the principles of ALARA. COMPARISON STUDY: 11/20/2016 FINDINGS: Lung bases remain clear. Minimal dependent basilar atelectasis. Operative interval changes of the abdomen consistent with a Whipple procedure. Interval cholecystectomy. Mild fatty infiltration of liver. No evidence for significant space-occupying hepatic lesions. Small hiatal hernia. Uniform spleen. Stent within the pancreatic duct. Mild infiltrative change of the operative bed as well as all mental status consistent with an unremarkable postoperative appearance. No significant adenopathy at this time. No evidence for biliary ductal distention. The bowel pattern is considered nonobstructive throughout. Retroperitoneum is unremarkable. The bladder is midline. Moderate fecal content within the colon. No evidence for abscess or collection. IMPRESSION: 1. Interval Whipple type procedure with resection of the previously described mass as well as expected postoperative changes within the abdomen. 2. No evidence for residual or recurrent disease. 3. No evidence for significant residual adenopathy. The above report was generated using voice recognition software. It may contain grammatical, syntax or spelling errors. Electronically signed by: Jerad Jha M.D. 02/17/2017 3:11 PM Dictated Date/Time: 02/17/2017 3:06 PM
== END | disposition home or self-care (01) ==
LOC: C.CTS 11:43
PROVIDERS: ATTEND Internal Medicine Hematology & Oncology
DX: C25.0 Malignant neoplasm of head of pancreas (principal); R91.8 Other nonspecific abnormal finding of lung field

== ENCOUNTER → 2017-06-19 | Outpatient (CLI) | payer BC ==
[~2017-06-19] MED LIST changes: -OPTIRAY 320 IV PRN
[2017-06-19 13:59] LABS: HEMOGLOBIN A1C 5.8 % (4.5-5.6)
== END | disposition home or self-care (01) ==
LOC: C.LABPVFM 17:15
PROVIDERS: ATTEND Family Medicine
DX: C25.0 Malignant neoplasm of head of pancreas (principal); E78.5 Hyperlipidemia, unspecified; M10.9 Gout, unspecified; I10 Essential (primary) hypertension

== ENCOUNTER 2018-12-08 00:24 | Inpatient (IN) ==
[2018-12-08] MEDS ORDERED: SODIUM CHLORIDE 0.9% 1000ML 1,000 ML IV ONE ×3 (00:40→11:16)
[2018-12-08 01:10] LABS: Hematocrit (blood only) 27.9 % (42-52); Hemoglobin 9.8 g/dL (14.0-18.0); Mean Corpuscular Hgb Conc 35.1 g/dL (32-36); Mean Corpuscular Volume 91.2 fL (80-100); Mean Platelet Volume 8.8 fL (7.4-10.4); Platelet Count 347 K/uL (130-400); RDW Coefficient of Variation 12.7 % (11.5-14.5); RDW Standard Deviation 41.9 fL (36.4-46.3); Red Blood Count 3.06 M/uL (4.7-6.1); White Blood Count 25.01 K/uL (4.8-10.8)
[2018-12-08 01:29] LABS: Basophils # (auto) 0.01 K/uL (0-0.2); Immature Granulocytes # (auto) 0.21 K/uL (0.00-0.02); Immature Granulocytes % (auto) 0.8 %; Lymphocytes # (auto) 1.09 K/uL (1.2-3.4); Lymphocytes % (auto) 4.4 %; Monocytes # (auto) 0.85 K/uL (0.11-0.59); Monocytes % (auto) 3.4 %; Neutrophils # (auto) 22.85 K/uL (1.4-6.5); Neutrophils % (auto) 91.4 %; Toxic Granulation 1+
[2018-12-08 01:39] LABS: Alanine Aminotransferase 19 U/L (12-78); Albumin Level 2.6 gm/dl (3.4-5.0); Alkaline Phosphatase 101 U/L (45-117); Aspartate Aminotransferase 10 U/L (15-37); BUN Creatinine Ratio 20.3 (10-20); Bilirubin Direct 0.1 mg/dl (0-0.2); Bilirubin,Total 0.3 mg/dl (0.2-1); Blood Urea Nitrogen 31 mg/dl (7-18); Calcium 8.2 mg/dl (8.5-10.1); Carbon Dioxide 23 mmol/L (21-32); Chloride 95 mmol/L (98-107); Creatine Kinase 47 U/L (39-308); Creatinine Clr Calc Pharmacy 49.2 ml/min; Est GFR (African American) 53.3; Glucose 377 mg/dl (70-99); Lipase 59 U/L (73-393); Magnesium 1.7 mg/dl (1.8-2.4); Sodium 128 mmol/L (136-145); Total Protein 5.5 gm/dl (6.4-8.2); Troponin I < 0.015 ng/ml (0-0.045)
[2018-12-08] MEDS ORDERED: PIPERACILLIN/TAZOBACTAM 4.5 GM/120 ML BAG IV ONE (01:44)
[2018-12-08] MEDS ORDERED: VANCOMYCIN HCL 1,750 MG in SODIUM CHLORIDE 0.9% 500 ML IV ONE (01:44)
[2018-12-08] MEDS ORDERED: PIPERACILL/TAZOBAC CONSULT ACTIVE PRN ×2 (01:44→04:14)
[2018-12-08] MEDS ORDERED: VANCOMYCIN CONSULT ACTIVE PRN ×2 (01:44→04:14)
[2018-12-08] MEDS: SODIUM CHLORIDE 0.9% 1000ML 1,000 ML IV ONE ×2 (01:48→02:26)
[2018-12-08 02:01] LABS: Beta-Hydroxybutyrate 3.38 mg/dl (0.2-2.81)
--- NOTE | 2018-12-08 03:42 | History & Physical Report ---
Date of Service December 08, 2018 Assessment & Plan (1) Sepsis: 68-year-old male with past medical history of HTN, HLD, DM, pancreatic cancer presents following an episode of chills, sweats and syncope. Being admitted for suspected sepsis, source unknowntreat empirically with broad-spectrum antibiotics. Patient receives chemotherapy every 2 weeks. Was seen in the ED to have a white count of 25, lactate of 6.2, sodium of 128, BUN of 31, creatinine of 1.5, glucose of 377. Patient was afebrile and mildly tachycardic. Sepsis per SIRS criteria, source unknown Treat empirically with Vanco/Zosyn, follow renal function closely Received 3 L in the ED, continue maintenance fluids at 125 cc Repeat lactate Hyperglycemia, DM, status post Whipple In the setting of likely infection Giving Lantus 8 units, NovoLog 5 units Continue sliding scale insulin, hold metformin Pseudohyponatremia, follow sodium HEMANT, likely prerenal Rehydrate, follow BMP Pancreatic cancer Consult oncology regarding port and chemo pump Continue pancreatic enzymes Normocytic anemia, unknown cause Obtaining iron studies, LDH, reticulocyte count, peripheral smear Hypertensionhyperlipidemia Hold lisinopril/HCTZ tonight, restart tomorrow if pressures tolerate Continue simvastatin CODE STATUSfull DVT prophylaxisSCDs, chemoprophylaxis contraindicated in setting of anemia Dietheart healthy, carb consistent, continue MIVF NS 125 cc/h (2) Syncope: (3) Diabetes mellitus: (4) Hypertension: (5) Dyslipidemia: (6) Carcinoma of head of pancreas: (7) Anemia: History of Present Illness Primary Care Provider: Bailee Castellon MD 68-year-old male with past medical history of pancreatic cancer presents following an episode of chills, sweats and syncope. The episode occurred this evening while he was driving. He states that he had to pull off the side of the road as he began to feel acutely diaphoretic and syncopal. He got out of his car, he fell to the ground but the passenger was able to catch him. He denies any recent illness, but he is on a biweekly chemo regimen. He denies any dysuria, shortness of breath or skin lesions. He was diagnosed with pancreatic cancer in 2017 and had received a Whipple procedure and chemotherapy. Tumor markers were recently elevated and he was subsequently started on additional rounds of chemotherapy. Allergies Allergy/AdvReac Type Severity Reaction Status Date / Time No Known Drug Allergies Allergy Unknown Verified 12/08/18 01:39 Home Medications Home Medications Medication Instructions Recorded Confirmed Type simvastatin 20 mg tablet 20 mg PO HS #90 tab 07/20/18 12/08/18 Rx potassium chloride ER 20 mEq 20 meq PO TID #270 tab 08/25/18 12/08/18 Rx tablet,extended release [id number] 1 cap PO TIDM cap 11/11/18 12/08/18 History 3,000-9,500-15,000 unit capsule,delayed releas metformin 500 mg PO QPM 11/11/18 12/08/18 History lisinopril-hydrochlorothiazide 1 tab PO HS 12/08/18 12/08/18 History metformin 1,000 mg PO QAM 12/08/18 12/08/18 History ondansetron HCl 8 mg PO UD PRN 12/08/18 12/08/18 History prochlorperazine maleate 10 mg PO UD PRN 12/08/18 12/08/18 History Past Med/Surg History Medical History Hypertension (Acute) Hypokalemia (Acute) Dyslipidemia (Acute) Carcinoma of head of pancreas (Acute) Diabetes mellitus, type 2 NIDDM History of pancreatic cancer DX 3 YEARS AGO - S/P CHEMO, SURGERY Hyperlipidemia Port-A-Cath in place (11/15/18) Insertion of Mediport Right Cephalic Vein Dr. Galdamez 11/15/18 Surgical History History of ERCP History of biliary duct stent placement REMOVED History of surgery WHIPPLE SURGERY 2017 History of surgery on upper extremity RT History of vascular access device INSERTION AND REMOVAL Family History Brother Family history of diabetes mellitus Mother Family history of diabetes mellitus Social History Preferred Language: Upper Sorbian Communication Ability: Effective Edge Gluer Required: No Beliefs That Will Affect Care: None Current Living Situation: Spouse Other Information That Helps Us Care for You: No Feels Safe at Home: Yes Safety Concerns: Feels Safe At This Time Smoking Status: Former smoker Do You Dip or Chew Tobacco: No ; Second Hand Exposure: No ; Hx Alcohol Use: No Hx Substance Use: No Review of Systems Constitutional: + fever and + sweats; no fatigue Ear, Nose, Mouth, Throat: no nasal discharge, no post nasal drip, no sinus pain/pressure and no sore throat Respiratory: no cough, no chest congestion, no dyspnea and no wheezing Cardiovascular: no chest pain, no palpitations and no edema Gastrointestinal: + nausea; no abdominal pain, no vomiting and no diarrhea/loose stools Genitourinary: no dysuria and no nocturia Integumentary: no rash and no lesions Neurologic: + dizziness and + syncope Physical Exam Constitutional: WD/WN, vitals as above Eyes: PERRL, conjunctivae normal, anicteric sclerae ENMT: external ear and nose normal, oropharynx normal Neck: trachea midline, no thyromegaly Respiratory: normal respiratory effort, lungs clear to auscultation Cardiovascular: RRR, no murmur, no edema Gastrointestinal (Abdomen): normal bowel sounds, soft, nontender, no hepatosplenomegaly Musculoskeletal: no cyanosis or clubbing, extremities motor strength 5/5 Skin: no rashes, warm and dry Neurologic: PERRL, EOMI, accommodation nl, no face palsy, no dysarthria Psychiatric: A+Ox3, euthymic affect Results & Data Vital Signs (Past 12 Hours) Vital Signs Temp Pulse Pulse Resp BP BP Pulse Ox 12/08/18 02:49 66 18 108/62 100 12/08/18 02:27 67 18 127/66 98 12/08/18 02:04 75 18 103/62 96 12/08/18 01:42 99 H 20 114/68 99 12/08/18 00:53 86 20 110/66 96 12/08/18 00:36 83 99 12/08/18 00:29 36.5 C 103 H 20 112/64 98 Code Status & VTE Plan VTE Prophylaxis Plan VTE Prophylaxis will be ordered: Yes Supervising Physician Co-Signing Physician Notes Patient seen and examined, chart reviewed, case discussed with Dr. Hoskins and I agree with his assessment and plan as documented above. Briefly, patient is a 68-year-old male with history of pancreatic cancer status post Whipple procedure performed in December 2016, suspected recurrence presently on chemotherapy. Patient presenting after developing chills and sweats last evening and having a syncopal event in the car today. He has had some mild nausea and loose stools associated with chemotherapy otherwise no complaints. Specifically, no cough/congestion/facial or dental pain/chest pain/palpitations/abdominal pain/dysuria/rash/arthritis. On physical exam he is 36.3, heart rate of 103, blood pressure 103/62, respiratory rate of 18 and 96% on room air. GeneralPleasant and conversive, no acute distress HEENTnormocephalic/atraumatic pupils equal round reacting, slightly dry mucous membranes, neck supple HeartS1-S2 present, no murmurs rubs or gallop, port nontender, no erythema or drainage LungsCTA, no rales/rhonchi/wheezes Abdomenmildly distended, tympanic to percussion, no masses/organomegaly/ascites, nontender Extremitiesno edema Labs and images reviewed. Significant for leukocytosis WBC = 25.01, normochromic normocytic anemia with HG = 9.8, HCT = 27.9 (significantly decreased from 13.5 and 37.2, respectively). Elevated lactate at 6.2. Sodium = 128, chloride = 95, BUN = 31, creatinine = 1.55 (up from 17 and 1.09, respectively) CXR - no PNA Assessment/Plan: Concern for sepsis, unclear source, elevated lactate. Also seems to be clinically dehydrated, hyperglycemic with elevated B-HB (HCO3 and gap acceptable) -Broad spectrum abx with Vancomycin and Zosyn -Follow cultures -Insulin management, goal BS < 180 -IVF and electrolyte repletion -Anemia workup - patient reports bleeding hemorrhoids on occasion -Remainder of plan as above PG Care Time/CCT Total # of Minutes Spent Total Time Spent with Patient: Total time spent is greater than 50% in coordination of care (as documented) at patient's floor/unit and/or counseling patient: Resident Activity Tracking Resident Involvement: Resident Care Provided Care Provided: Adult Hospital Medicine (1) Syncope Syncope type: unspecified Qualified Code(s): R55 - Syncope and collapse
[2018-12-08] MEDS ORDERED: ACETAMINOPHEN 325 MG TAB PO PRN (04:14)
[2018-12-08] MEDS ORDERED: SODIUM CHLORIDE 0.9% 1000ML 1,000 ML IV SCH (04:14)
[2018-12-08] MEDS ORDERED: POLYETHYLENE (MIRALAX) 17 GM PACK PO PRN (04:14)
[2018-12-08] MEDS ORDERED: INSULIN ASPART PER UNIT 5 UNITS in SYRINGE 0 ML SC STA (04:14)
[2018-12-08] MEDS ORDERED: PROCHLORPERAZINE 5 MG in SYRINGE 4 ML IV PRN (04:14)
[2018-12-08] MEDS ORDERED: VANCOMYCIN HCL 1,250 MG in SODIUM CHLORIDE 0.9% 500 ML IV SCH (04:14)
[2018-12-08] MEDS ORDERED: ONDANSETRON INJ 2 MG/ML 2 ML VIAL IV PRN (04:14)
[2018-12-08] MEDS ORDERED: GLUCOSE 40% GEL 15 GM TUBE PO PRN (05:00)
[2018-12-08] MEDS ORDERED: INSULIN ASPART 100 UNITS/ML 3 ML PEN SC ONE (05:00)
[2018-12-08] MEDS ORDERED: GLUCOSE 10 TABS/TUBE PO PRN (05:00)
[2018-12-08] MEDS ORDERED: GLUCAGON FOR INJ 1 MG VIAL IM PRN (05:00)
[2018-12-08] MEDS ORDERED: INSULIN GLARGINE SOLOSTAR 100 UNITS/ML 3 ML PEN SC ONE ×4 (05:00→21:00)
[2018-12-08] MEDS ORDERED: CARBOHYDRATES FOR HYPOGLYCEMIA PO PRN (05:00)
[2018-12-08] MEDS ORDERED: DEXTROSE 50% 50 ML SYRINGE IV PRN (05:00)
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
--- NOTE | 2018-12-08 06:38 | CT Scan Report ---
CT OF THE HEAD WITHOUT CONTRAST CLINICAL HISTORY: Syncope, GCS 15 COMPARISON STUDY: No previous studies for comparison. CT DOSE: 537.48 mGy.cm TECHNIQUE: Helical axial images of the head were obtained without IV contrast. Automated exposure con trol was utilized for the study. A dose lowering technique was utilized adhering to the principles o f ALARA. FINDINGS: No acute intracranial hemorrhage, midline shift or mass effect is present. The ventricular system is unremarkable. The basilar cisterns are patent. No extra-axial collections are present. Ther e are no findings to suggest acute dural sinus thrombosis or acute territorial infarct. No significan t calvarial abnormalities are present. An air-fluid level within the right maxillary sinus is partial ly imaged. IMPRESSION: 1. No acute intracranial findings. 2. Right maxillary sinus air-fluid level. Electronically signed by: Mahendra Geiger M.D. 12/08/2018 6:37 AM
--- NOTE | 2018-12-08 06:46 | XRay Report ---
XR chest 1V portable CLINICAL HISTORY: syncope COMPARISON STUDY: Chest CT November 16, 2018. FINDINGS: Right subclavian [id number] is in place. Mild cardiomegaly and extensive mitral annular calcification are noted. No evidence for pulmonary edema. No pneumothorax or pleural effusion is note d. Several pulmonary nodules within the left upper lobe nodule better depicted on chest CT of November 16, 2018. There is no consolidation to suggest pneumonia. IMPRESSION: 1. No acute cardiopulmonary findings. 2. Several pulmonary nodules which are better depicted on chest CT November 16, 2018. Electronically signed by: Mahendra Geiger M.D. 12/08/2018 6:45 AM
[2018-12-08] MEDS: POTASSIUM CHLORIDE 20 MEQ TABCR PO SCH ×3 (07:57→20:33)
[2018-12-08] MEDS: PANCREAZE (LIPASE 10,500U) CAP PO SCH ×3 (07:57→17:15)
[2018-12-08] MEDS ORDERED: INFLUENZA ADMINISTRATION CHARGE ONE (08:00)
[2018-12-08] MEDS ORDERED: INFLUENZA VACCINE HIGH DOSE 65+ 0.5 ML SYR IM ONE (08:00)
[2018-12-08] MEDS: PIPERACILLIN/TAZOBACTAM 3.375 GM in DEXTROSE 5% 100 ML IV SCH ×2 (08:02→16:01)
[2018-12-08] MEDS: INSULIN ASPART 100 UNITS/ML 3 ML PEN SC SCH ×4 (08:03→20:31)
[2018-12-08 08:15] LABS: Hemoglobin 7.6 g/dL (14.0-18.0); Mean Corpuscular Hemoglobin 31.3 pg (25-34); Mean Corpuscular Hgb Conc 34.5 g/dL (32-36); Mean Corpuscular Volume 90.5 fL (80-100); Mean Platelet Volume 8.4 fL (7.4-10.4); Platelet Count 272 K/uL (130-400); RDW Coefficient of Variation 12.5 % (11.5-14.5); RDW Standard Deviation 41.6 fL (36.4-46.3); Red Blood Count 2.43 M/uL (4.7-6.1); White Blood Count 13.85 K/uL (4.8-10.8)
[2018-12-08 08:22] LABS: Calcium 7.4 mg/dl (8.5-10.1); Creatinine Clr Calc Pharmacy 72.1 ml/min; Est GFR (African American) 82.5; Est GFR (Non-African American) 71.1; Potassium 4.4 mmol/L (3.5-5.1)
[2018-12-08 08:27] LABS: Ferritin 375.4 ng/ml (8-388)
[2018-12-08 08:36] LABS: Basophils # (auto) 0.01 K/uL (0-0.2); Basophils % (auto) 0.1 %; Immature Granulocytes # (auto) 0.05 K/uL (0.00-0.02); Immature Granulocytes % (auto) 0.4 %; Lymphocytes # (auto) 1.18 K/uL (1.2-3.4); Lymphocytes % (auto) 8.5 %; Monocytes # (auto) 0.35 K/uL (0.11-0.59); Monocytes % (auto) 2.5 %; Neutrophils # (auto) 12.26 K/uL (1.4-6.5); Neutrophils % (auto) 88.5 %; Reticulocyte % 1.5 % (0.5-2.0); Reticulocytes # 0.04 10^6/uL (0.02-0.10); Toxic Granulation 2+
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
--- NOTE | 2018-12-08 09:03 | Pharmacy Report ---
Pharmacy Abx Initial Consult - Date of Service December 08, 2018 - Pharmacy Dosing Scope Date of Consult: 12/08 Consultation requested by: Dr. Gomez Hoskins Pharmacy is consulted to initiate vancomycin/zosyn IV/PO dosing therapy, order appropriate labs and adjust drug dose/frequency. - Subjective The patient is a 68 year old M admitted on 12/08/18 02:59. - Objective Height: 5 ft 6 in Weight: 93.6 kg Vital Signs (Past 12hrs): Vital Signs Temp Pulse Pulse Pulse Resp BP BP 12/08/18 07:25 36.8 C 73 18 100/64 12/08/18 05:00 96 H 12/08/18 04:30 36.8 C 90 18 101/66 12/08/18 04:15 36.8 C 92 H 18 101/12/08/18 03:37 73 20 107/64 12/08/18 02:49 66 18 108/62 12/08/18 02:27 67 18 127/66 12/08/18 02:04 75 18 103/62 12/08/18 01:42 99 H 20 114/68 12/08/18 00:53 86 20 110/66 12/08/18 00:36 83 12/08/18 00:29 36.5 C 103 H 20 112/64 Pulse Ox 12/08/18 07:25 100 12/08/18 05:00 12/08/18 04:30 98 12/08/18 04:15 98 12/08/18 03:37 98 12/08/18 02:49 100 12/08/18 02:27 98 12/08/18 02:04 96 12/08/18 01:42 99 12/08/18 00:53 96 12/08/18 00:36 99 12/08/18 00:29 98 Lab Results (24hrs): Laboratory Tests (24 Hours) 12/08/18 12/08/18 12/08/18 07:41 07:41 01:01 WBC 13.85 H D 25.01 H Neut # (Auto) 12.26 H 22.85 H Creatinine 1.08 Est Cr Clr Drug Dosing 72.1 Total Creatine Kinase 12/08/18 01:00 WBC Neut # (Auto) Creatinine 1.55 H Est Cr Clr Drug Dosing 49.2 Total Creatine Kinase 47 Micro Results: 12/08/18 02:02 Aerobic Blood Culture - Pending Blood Anaerobic Blood Culture - Pending 12/08/18 02:00 Aerobic Blood Culture - Pending Blood Anaerobic Blood Culture - Pending - Risk Factors for Resistance * Immunocompromised (chronic steroid therapy, chemotherapy, immunomodulators) - Assessment & Plan Assessment 68 year old M with a past medical history including pancreatic cancer s/p whipple procedure 2017 presented to ER with episode of chills, sweats, syncope. Patient is currently receiving chemotherapy every 2 weeks. Patient's WBC elevated on admission 25, improved this morning to 12.8. Patient has been afebrile since admission, Lactic acid elevated on admission 6.2, down to 2.6. Chest x-ray not suggestive of pneumonia, starting vancomycin/zosyn empirically (entered for 48hrs) for possible infection with currently unknown source in setting of immunocompromised patient. SCr on admission 1.55, improved this morning to 1.08. Plan Vancomycin IV * Estimated PK Parameters: Vd 0.7 L/kg, Robert 0.064 hr-1, t1/2 10 hr * Loading dose: 1750 mg (18.6 mg/kg) * Maintenance dose: 1250 mg IV (13.3 mg/kg) every 12 hours * Goal trough level 15-20 mcg/mL * Trough will be ordered for 12/10 @0230 if continued Piperacillin/tazobactam * 4.5 g bolus administered over 30 minutes, then 3.375 g IV extended infusion every 8 hours for CrCl greater than 20 mL/min Pharmacy will continue to follow and will adjust dose/frequency as necessary. Thank you.
[2018-12-08] MEDS ORDERED: HEPARIN 100 UNIT/ML 5ML FLUSH ONE (09:13)
[2018-12-08] MEDS ORDERED: HEPARIN 100 UNIT/ML 5ML FLUSH FLUSH PRN (10:04)
[2018-12-08] MEDS ORDERED: PHARMACY GLYCEMIC MGMT CONSULT PRN (10:47)
[2018-12-08 10:50] LABS: Appearance Urine Clear (Clear); Bilirubin Urine Negative (Negative); Blood Urine Negative (Negative); Color Urine Yellow; Glucose Urine UA 3+ (Negative); Ketones Urine Negative (Negative); Leukocyte Esterase Urine Negative (Negative); Nitrite Urine Negative (Negative); Protein Urine Negative (Negative); Specific Gravity Urine 1.025 (1.000-1.030); Urobilinogen Urine Negative (Negative)
[2018-12-08] MEDS: VANCOMYCIN HCL 1,250 MG in SODIUM CHLORIDE 0.9% 250 ML IV SCH (13:35)
--- NOTE | 2018-12-08 14:39 | Pharmacy Report ---
Glycemic Control Consultation - Date of Service December 08, 2018 - Scope Scope: Glycemic Pharmacist consulted by Dr Davies on 12/11 for glycemic control and to write orders per [facility] inpatient glycemic control protocol - Objective Weight: 93.6 kg Accuchecks BSG (last 24hrs): 12/08/18 12/08/18 12/08/18 01:00 04:18 07:41 Glucose 377 H* 233 H POC Glucose 326 H* 12/08/18 12/08/18 07:56 11:27 Glucose POC Glucose 230 H 288 H Laboratory Data (last 24hrs): 12/08/18 12/08/18 01:00 07:41 Potassium 5.0 4.4 Carbon Dioxide 23 23 Anion Gap 10.0 7.0 Creatinine 1.55 H 1.08 Est Cr Clr Drug Dosing 49.2 72.1 Beta-Hydroxybutyric Acd 3.38 H - Recent Pertinent Medications Outpatient Anti-diabetic Regimen: * Metformin 1000 mg qAM, 500 mg QPM * A1c = pending Risk Factors for Insulin Resistance: * Steroids: * Infection: zosyn/vanco * Pressors: * IVF: * Recent Surgery * Diet: T2DM * Mechanical Ventilation: - Assessment & Plan Assessment & Plan: ASSESSMENT: * Mr. Mason is a 68 year old admitted with possible infection, patient on chemotherapy with history of pancreatic cancer * BSG on admission elevated in the 300s was started on loose correction/carb ratio * Consulted this morning, after fasting still elevated 233. * Expect insulin production could be variable- previous A1c was 7.2% in June, given elevated BSGs will initiate weight based stress of 1 this morning and order scale for this evening up to stress of 2 * Tightened correction factor and carb ratio between weight based stress of 1 and 2, will titrate as necessary PLAN FOR INPATIENT GLYCEMIC CONTROL: * Holding outpatient oral diabetes medications * Basal insulin * Lantus 15 units x 1 this morning, scale for pm 11/30 * Bolus insulin * NovoLog per scale ACHS or Q6hrs while NPO * Goal Range: Low 120 mg/dL - High 160 mg/dL * Correction Factor: 30 mg/dL/unit * Nutritional / Prandial insulin per carb ratio of 1 unit per 12 grams CHO consumed * Please note that the plan above was derived based on current level of insulin resistance and hospital stress. These recommendations are appropriate for inpatient admission only. Plan of care upon discharge will need to be reassessed to avoid potential outpatient hypo/hyperglycemia. Thank you.
[2018-12-08] MEDS ORDERED: MAGNESIUM SULFATE / D5W 1 GM/100 ML BAG IV ONE (16:00)
--- NOTE | 2018-12-08 18:11 | Family Medicine Progress Note ---
Date of Service December 08, 2018 Assessment & Plan (1) Sepsis: 68-year-old male with past medical history of HTN, HLD, DM, pancreatic cancer presents following an episode of chills, sweats and syncope. Being admitted for suspected sepsis, source unknowntreat empirically with broad-spectrum antibiotics. Patient receives chemotherapy every 2 weeks. Was seen in the ED to have a white count of 25, lactate of 6.2, sodium of 128, BUN of 31, creatinine of 1.5, glucose of 377. Patient was afebrile and mildly tachycardic. Possible Sepsis per SIRS criteria, source unknown No obvious source of infection, but patient is likely immunocompromised on chemotherapy Chest XR clear, urinalysis not able to be drawn as patient had not peed for over 12 hours. possibly source. Blood cultures drawn treating empirically with Vanco/Zosyn, follow renal function closely Received 4 L total and continuing with NS at 125 for rehydration Repeat lactate dropped to 2.6 Patient feeling subjectively much better today no complaints. Hyperglycemia, DM, status post Whipple With some ketosis. In the setting of likely infection Pharmacy glycemic management consult placed Pseudohyponatremia, will follow sodium as glucose improves Hyperglycemia mostly when getting chemo - consider adding lantus during future chemo treatments HEMANT, likely prerenal ?secondary to dehydration Patient appears clinically dry despite 3 L resuscitation in ED gave one more L bolus and continuing NSS at 125 Will repeat BMP in am Pancreatic cancer Oncology consulted FOLFIRINOX pump stopped Recommended continuing IV antibiotics Normocytic anemia, unknown cause Iron studies consistent with anemia of chronic disease/bone marrow suppression Hemoglobin continuing to drop, no clear cause of blood loss patient denies blood in stool, likely Anemia of chronic disease or marrow suppression will repeat H and H overnight and transfuse for hemoglobin <7 acute drop may be dilutional as we have given large amount of fluid since admission Will also get hemoccult to look for GI losses Hypertensionhyperlipidemia Hold lisinopril/HCTZ tonight, restart tomorrow if pressures tolerate Continue simvastatin CODE STATUSfull DVT prophylaxisSCDs, chemoprophylaxis contraindicated in setting of anemia Dietheart healthy, carb consistent, continue MIVF NS 125 cc/h (2) Syncope: (3) Diabetes mellitus: (4) Hypertension: (5) Dyslipidemia: (6) Carcinoma of head of pancreas: (7) Anemia: Supervising Physician Co-Signing Physician Notes Resident Physician Supervision Note: I independently interviewed and examined the patient and verified the chua history and physical, reviewed labs and image studies, discussed the case with the resident Dr. Davies and agree with the findings and care plan. Subjective See today's H and P Review of Systems Review of Systems: See today's H and P Physical Exam 2 Physical Exam: See today's H and P Results & Data Vital Signs (Past 12 Hours) Vital Signs Temp Pulse Pulse Resp BP Pulse Ox 12/08/18 16:13 89 12/08/18 15:14 36.5 C 87 18 112/70 98 12/08/18 11:08 36.9 C 96 H 18 90/58 L 97 12/08/18 07:25 36.8 C 73 18 100/64 100 PG Care Time/CCT Total # of Minutes Spent Total Time Spent with Patient: Total time spent is greater than 50% in coordination of care (as documented) at patient's floor/unit and/or counseling patient: Resident Activity Tracking Resident Involvement: Resident Care Provided Care Provided: Adult Hospital Medicine (1) Syncope Syncope type: unspecified Qualified Code(s): R55 - Syncope and collapse
[2018-12-08 18:44] LABS: Hematocrit (blood only) 19.8 % (42-52); Mean Corpuscular Hemoglobin 32.1 pg (25-34); Mean Corpuscular Hgb Conc 35.4 g/dL (32-36); Mean Corpuscular Volume 90.8 fL (80-100); Mean Platelet Volume 8.3 fL (7.4-10.4); Platelet Count 245 K/uL (130-400); RDW Coefficient of Variation 12.8 % (11.5-14.5); RDW Standard Deviation 42.1 fL (36.4-46.3); Red Blood Count 2.18 M/uL (4.7-6.1); White Blood Count 9.92 K/uL (4.8-10.8)
[2018-12-08 18:57] LABS: Basophils # (auto) 0.01 K/uL (0-0.2); Basophils % (auto) 0.1 %; Eosinophils # (auto) 0.02 K/uL (0-0.5); Eosinophils % (auto) 0.2 %; Immature Granulocytes # (auto) 0.02 K/uL (0.00-0.02); Immature Granulocytes % (auto) 0.2 %; Lymphocytes # (auto) 1.11 K/uL (1.2-3.4); Lymphocytes % (auto) 11.2 %; Neutrophils # (auto) 8.56 K/uL (1.4-6.5); Neutrophils % (auto) 86.3 %; Toxic Granulation 2+
[2018-12-08] MEDS ORDERED: SODIUM CHLORIDE 0.9% 250 ML IV PRN (19:46)
[2018-12-08] MEDS ORDERED: LISINOPRIL/HCTZ 20/25MG 1 TAB PO SCH (21:00)
[2018-12-08] MEDS ORDERED: SIMVASTATIN 20 MG TAB PO SCH (21:00)
[2018-12-09] MEDS: VANCOMYCIN HCL 1,250 MG in SODIUM CHLORIDE 0.9% 250 ML IV SCH (00:13)
[2018-12-09] MEDS: PIPERACILLIN/TAZOBACTAM 3.375 GM in DEXTROSE 5% 100 ML IV SCH ×2 (00:13→08:10)
[2018-12-09] MEDS ORDERED: INSULIN ASPART 100 UNITS/ML 3 ML PEN SC SCH (02:00)
[2018-12-09 06:14] LABS: Estimated Average Glucose 169 mg/dl; Hemoglobin A1C 7.5 % (4.5-5.6)
[2018-12-09] MEDS: PANCREAZE (LIPASE 10,500U) CAP PO SCH ×2 (08:07→12:02)
[2018-12-09] MEDS: POTASSIUM CHLORIDE 20 MEQ TABCR PO SCH ×2 (08:07→14:12)
[2018-12-09] MEDS: INSULIN ASPART 100 UNITS/ML 3 ML PEN SC SCH ×2 (08:08→12:04)
[2018-12-09 08:38] LABS: BUN Creatinine Ratio 22.8 (10-20); Calcium 7.6 mg/dl (8.5-10.1); Creatinine Clr Calc Pharmacy 108.9 ml/min; Est GFR (African American) 112.7; Est GFR (Non-African American) 97.2; Potassium 3.9 mmol/L (3.5-5.1)
--- NOTE | 2018-12-09 08:47 | Progress Note ---
DATE: 12/09/2018 ONCOLOGY PROGRESS NOTE DIAGNOSES: 1. Near syncope. 2. Probable metastatic pancreatic cancer (pulmonary metastasis). 3. Hypoalbuminemia. 4. Hypomagnesemia. SUBJECTIVE: Mr. Agustin was seen at bedside. He feels much better, is requesting to go home. He is ambulating ad batsheva, tolerating his diet, and moving his bowels. Blood cultures are pending at this time. Otherwise, no complaints of pain and nursing reports no overnight difficulties. OBJECTIVE: GENERAL: A very pleasant 68-year-old gentleman sitting up at bedside, in no acute distress. VITAL SIGNS: Temperature 36.6, pulse is 63, respiratory rate 16, blood pressure 92/63. SKIN: Without rash or lesion. HEENT: Oral mucosa without erythema or ulceration. HEART: Regular rate and rhythm. LUNGS: Clear to auscultation bilaterally. ABDOMEN: Soft, nontender, nondistended. EXTREMITIES: No clubbing, cyanosis or edema. NEUROLOGICAL: Grossly intact. LABORATORY DATA: WBC count 9920, hemoglobin 7, platelet count 245,000. Absolute neutrophil count 8560. IMPRESSION: 1. Near syncope. 2. Anemia. 3. Metastatic pancreatic cancer. 4. Hypoalbuminemia. PLAN: Again, I had suggested perhaps a blood transfusion to improve his overall wellbeing and may prevent further syncope. He looks well, his vital signs are stable and I see no reason he needs to remain inpatient unless there are other medical issues that I am unaware of. His blood cultures are negative thus far. He is due for a granulocyte colony stimulating growth factor, which could be given as an inpatient. We will officially sign off at this juncture. I will ensure he has an appropriate followup with Dr. Cardenas.
[2018-12-09] MEDS ORDERED: INSULIN GLARGINE SOLOSTAR 100 UNITS/ML 3 ML PEN SC ONE ×2 (09:00→21:00)
[2018-12-09 11:00] VITALS: PULSE 71; TEMP 97.7; O2SAT 100
--- NOTE | 2018-12-09 11:14 | Discharge Summary ---
Date of Service December 09, 2018 Admission HPI Per Admitting Provider 68-year-old male with past medical history of pancreatic cancer presents following an episode of chills, sweats and syncope. The episode occurred this evening while he was driving. He states that he had to pull off the side of the road as he began to feel acutely diaphoretic and syncopal. He got out of his car, he fell to the ground but the passenger was able to catch him. He denies any recent illness, but he is on a biweekly chemo regimen. He denies any dysuria, shortness of breath or skin lesions. He was diagnosed with pancreatic cancer in 2017 and had received a Whipple procedure and chemotherapy. Tumor markers were recently elevated and he was subsequently started on additional rounds of chemotherapy. Admission Exam Per Admitting Provider Constitutional: WD/WN, vitals as above Eyes: PERRL, conjunctivae normal, anicteric sclerae ENMT: external ear and nose normal, oropharynx normal Neck: trachea midline, no thyromegaly Respiratory: normal respiratory effort, lungs clear to auscultation Cardiovascular: RRR, no murmur, no edema Gastrointestinal (Abdomen): normal bowel sounds, soft, nontender, no hepatos plenomegaly Musculoskeletal: no cyanosis or clubbing, extremities motor strength 5/5 Skin: no rashes, warm and dry Neurologic: PERRL, EOMI, accommodation nl, no face palsy, no dysarthria Psychiatric: A+Ox3, euthymic affect Principal Diagnosis Dehydration, Anemia Discharge Exam Constitutional: WD/WN, vitals as above Eyes: PERRL, conjunctivae normal, anicteric sclerae ENMT: external ear and nose normal, oropharynx normal Neck: trachea midline, no thyromegaly Respiratory: normal respiratory effort, lungs clear to auscultation Cardiovascular: RRR, no murmur, no edema Gastrointestinal (Abdomen): normal bowel sounds, soft, nontender, no hepatosplenomegaly Musculoskeletal: no cyanosis or clubbing, extremities motor strength 5/5 Skin: no rashes, warm and dry Neurologic: PERRL, EOMI, accommodation nl, no face palsy, no dysarthria Psychiatric: A+Ox3, euthymic affect Discharge Data Allergies Allergy/AdvReac Type Severity Reaction Status Date / Time No Known Drug Allergies Allergy Unknown Verified 12/08/18 01:39 Consultations 12/08/18 01:50 ED Decision to Admit Stat 12/08/18 04:14 Consult Case Management - Discharge Planning Routine Consult Oncology Routine Ordered Studies 12/08/18 01:45 CT head/brain wo con Urgent Hospital Course (1) Sepsis: 68-year-old male with past medical history of HTN, HLD, DM, pancreatic cancer presents following an episode of chills, sweats and syncope. Being admitted for suspected sepsis, source unknowntreat empirically with broad- spectrum antibiotics. Patient receives chemotherapy every 2 weeks. Was seen in the ED to have a white count of 25, lactate of 6.2, sodium of 128, BUN of 31, creatinine of 1.5, glucose of 377. Patient was afebrile and mildly tachycardic. Probable Sepsis per SIRS criteria - ruled out. No obvious source of infection, but patient is likely immunocompromised on chemotherapy Chest XR clear, urinalysis not able to be drawn as patient had not peed for over 12 hours. possibly source. Blood cultures drawn treating empirically with Vanc/zosyn and aggressively rehydrated, received over 12 L of fluid Blood cultures negative for 48 hours, no signs of infection Repeat lactate dropped to 2.6 Patient felt subjectively like himself and was able to be discharged home and antibiotics ceased HEMANT, likely prerenal Patient clinically dry and creatinine elevated from normal baseline to 1.55 Improved with aggressive fluid resuscitation back to normal Pancreatic cancer Oncology consulted FOLFIRINOX pump stopped neulasta shot given on day of discharge Normocytic anemia, unknown cause Iron studies consistent with anemia of chronic disease/bone marrow suppression Hemoglobin continuing to drop, no clear cause of blood loss patient denies blood in stool, likely Anemia of chronic disease or marrow suppression repeat H and H showed hemoglobin of 7 from 9 on admission, acute drop may be dilutional as we have given large amount of fluid since admission Recommend outpatient follow up for bone marrow suppression, may need transfusion at some point but as patient was asymptomatic and hemoglobin 7 or greater we decided not to transfuse. Patient also very reticent to receive blood, tried to explain risks and benefits but he is very cautious. Hypertensionhyperlipidemia Held lisinopril HCTZ, can restart now that pressures are back up. (2) Syncope: (3) Diabetes mellitus: (4) Hypertension: (5) Dyslipidemia: (6) Carcinoma of head of pancreas: (7) Anemia: Total Time Total Time Spent Total Time Spent (In Minutes): See attending attestation Discharge Plan Discharge Items Patient Disposition: Home - Home Health Services Reason For Visit: SEPSIS Discharge Diagnosis: Sepsis Activity: Resume your previous activity Non-emergency contact: Primary Care Provider and Oncologist Call non-emergency contact if: you have any medication questions, your symptoms worsen, your pain is not controlled and your temperature is above 101 Follow-up/Referrals: Bailee Castellon MD [Primary Care Provider] - 12/15/18 10:00 am (Please, follow up at [facility] with Dr. Castellon on ThursdayDecember 15 at 10:00 am. *If you need to change this appointment, call the office at [phone].) Diet: Carb Consistent or DM2 Addtl Attending Provider Instructions: Mr. Agustin, It was a pleasure to meet you and treat you for your fainting episode. We believe that you became very dehydrated and also anemic from your chemotherapy. We have aggressively rehydrated you with fluid and you appear to be dong much better. If you have similar symptoms again, please return to medical care. We do not have a clear source of infection, and as you have been afebrile for two days and not had any concerning symptoms we are happy to discharge you at this time. We recommend outpatient follow up with Dr. Salazar and your primary care provider within the next two weeks. If you have any fevers, chills, shakes, or fainting please return to medical care. We are also concerned about your hemoglobin level, we are concerned that your blood count is too low and we were close to needing to transfuse you donor blood. it will be important that you follow up and have your blood levels checked in your PCP or oncologists office for further management of this anemia. It was a pleasure to meet you and play a role in your care and I wish you all the best moving forward. We will hold your blood pressure medicine lisinopril and hydrochlorothiazide until you meet with your primary care provider. Sincerely, Brent Davies MD. Pending Studies at Discharge: No Stand-Alone Forms: My [employer], Smoking Cessation Medications and DC Order Prescriptions: Continued simvastatin 20 mg tablet 20 mg PO HS Qty: 90 RF: 1 potassium chloride 20 mEq tablet extended release 20 meq PO TID Qty: 270 RF: 1 Creon 3,000-9,500- 15,000 unit capsule,delayed release(DR/EC) 1 cap PO TIDM RF: 0 metformin 500 mg tablet 500 mg PO QPM RF: 0 ondansetron HCl 8 mg tablet 8 mg PO UD PRN (Reason: Nausea) RF: 0 prochlorperazine maleate 10 mg tablet 10 mg PO UD PRN (Reason: Nausea) RF: 0 metformin 500 mg tablet 1,000 mg PO QAM RF: 0 Discontinued lisinopril-hydrochlorothiazide 20-25 mg tablet 1 tab PO HS RF: 0 Discharge Orders: Discharge Order (Routine); Ordered 12/09/18 Ordered By: Brent Davies Admission Data Admit Date/Time: 12/08/18 02:59 Attending Provider: Lorrie Jara Admit Provider: Jaime Hoskins Primary Care Provider: Bailee Castellon Other Providers: Angelina Brewer ; [facility] Cardenas ; [facility] Other Interventions: Discharge Summary Assessment (RN) Last Done: 12/09/18 12:45 DC Date/Time DO NOT enter until pt leaves facility: 12/09/18 16:05 Supervising Physician Co-Signing Physician Notes Resident Physician Supervision Note: I independently interviewed and examined the patient and verified the chua history and physical, reviewed labs and image studies, discussed the case with the resident Dr. Davies and agree with the findings and care plan. Time spent in discharge 35 min Resident Activity Tracking Resident Involvement: Resident Care Provided Care Provided: Adult Hospital Medicine
[2018-12-09 12:46] VITALS: BP 106/61
[2018-12-09] MEDS ORDERED: PEGFILGRASTIM 6 MG/0.6 ML SYR SQ ONE (13:30)
[2018-12-09] MEDS ORDERED: LORATADINE 10 MG TAB PO ONE (14:39)
[2018-12-10] MEDS ORDERED: VANCOMYCIN TROUGH ONE (00:30)
== END 2018-12-09 16:05 | disposition home health service (06) | DRG 683 ==
LOC: ED 00:24 → SUATTDRO 02:59 → 2W 02:59

== ENCOUNTER 2020-05-30 09:30 | Inpatient (IN) ==
--- NOTE | 2020-05-30 10:52 | XRay Report ---
XR chest 1V portable HISTORY: 70 years-old Male weakness acute weakness COMPARISON: Chest radiograph 12/08/2018, chest CT 12/06/2019 TECHNIQUE: Portable AP view of the chest FINDINGS: Cardiac silhouette is enlarged. Lungs are hypoinflated. A right subclavian Rnqovi-[id number] catheter is noted with distal tip projected superiorly on the right neck, distal tip not imaged. This was also no isi on comparison chest CT. Right hemidiaphragmatic elevation. Patchy bilateral nodular opacities are redemonstrated measuring up to 8 mm of the right midlung. No pneumothorax, large pleural effusion or overt pulmonary edema. No airspace consolidation typical for pneumonia. Degenerative changes of the shoulders and spine. IMPRESSION: 1. Hypoinflation without acute process. 2. Pulmonary metastasis redemonstrated. 3. Right subclavian Hulagu-m-[id number] catheter is again noted coursing into the internal jugular vein. ACT 112: Negative or not required by law. The above report was generated using voice recognition software. It may contain grammatical, syntax o r spelling errors. Electronically signed by: Reed Rothman M.D. 05/30/2020 10:51 AM
[2020-05-30 10:57] LABS: Appearance Urine Clear (Clear); Bacteria Urine Automated Negative (Negative); Blood Urine Negative (Negative); Color Urine Dark Yellow; Epithelial Cell Urine Auto 20-30 /lpf (0-5); Glucose Urine UA Negative (Negative); Ketones Urine Trace (Negative); Leukocyte Esterase Urine Negative (Negative); Nitrite Urine Negative (Negative); Protein Urine Trace (Negative); RBC Urine Automated 0-4 /hpf (0-4); Specific Gravity Urine 1.025 (1.000-1.030); Urobilinogen Urine Negative (Negative)
[2020-05-30 10:59] LABS: Bilirubin Urine 1+ (Negative)
[2020-05-30] MEDS ORDERED: SODIUM CHLORIDE 0.9% 1000ML 1,000 ML IV ONE (11:07)
[2020-05-30] MEDS ORDERED: MoRPHine SULFATE 2 MG/ML CARP IV STA (11:07)
[2020-05-30] MEDS ORDERED: ONDANSETRON INJ 2 MG/ML 2 ML VIAL IV STA (11:07)
--- NOTE | 2020-05-30 11:12 | Emergency Department Note ---
History of Present Illness General Chief complaint: Weakness Stated complaint: CHEMO TREATMENTS - WEAK AND DEHYDRATED Time Seen by Provider: 05/30/20 10:50 Source: patient and family (Daughter who is at the bedside) Mode of arrival: ambulatory Limitations: no limitations History of Present Illness Maximum Pain Intensity: 5 This patient has a history of pancreatic cancer with metastases and on chemo, comes in after feeling weak and tired he says some chronic mid back pain has been getting worse over the last couple weeks he was seen pain management yesterday and they told him they could do injections at this point due to his blood counts. He is followed locally at our cancer center he is also been seen in [facility] as he had a Whipple in 2017 from the pancreatic cancer he had CAT scans done about a week ago which according to his daughter showed a spot on the pancreas and lungs which have decreased however there is spots in the liver which is increased she tells me he has no known bony mets. No new numbness weakness his legs he just had a functional decline he is not eating. 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 He had the Covid vaccine x2. No cough or shortness of breath. Daughter said they did take 2 L of fluid off his abdomen this past Thursday and they have not heard any results she said that his white count has been running high Home Medications Medication Instructions Recorded Confirmed Type potassium chloride 20 meq PO TID 11/16/19 05/30/20 History metformin 1,000 mg tablet 1,000 mg PO QAM #90 tab 02/14/20 05/30/20 Rx [id number]-[id number] 1 cap PO TIDM #60 cap 02/28/20 05/30/20 Rx 3,000-9,500-15,000 unit capsule,delayed releas metformin 500 mg tablet 500 mg PO QPM #15 tab 02/28/20 05/30/20 Rx furosemide 40 mg tablet 40 mg PO DAILY 05/29/20 05/30/20 History gabapentin 300 mg PO TID 05/30/20 05/30/20 History hydrocodone-acetaminophen 1 tab PO Q6H PRN 05/30/20 05/30/20 History Allergies Allergy/AdvReac Type Severity Reaction Status Date / Time No Known Drug Allergies Allergy Unknown Verified 05/30/20 12:03 Past Med/Surg History Medical History Cancer related pain Diabetes mellitus, type 2 NIDDM Dyslipidemia pt denies Elevated INR Encounter for pre-operative examination History of pancreatic cancer DX 2017 - S/P CHEMO, SURGERY Metastasis Port-A-Cath in place (11/15/18) Insertion of Mediport Right Cephalic Vein Dr. Galdamez 11/15/18 Primary pancreatic adenocarcinoma Sepsis treated at [facility] 11/2018 Surgical History History of biliary duct stent placement REMOVED History of ERCP History of hernia repair History of open reduction and internal fixation (ORIF) procedure RIGHT ARM History of surgery WHIPPLE SURGERY 2016 History of vascular access device INSERTION AND REMOVAL S/P hardware removal right arm Family History Brother Family history of diabetes mellitus Mother Family history of diabetes mellitus Father Myocardial infarction Other No family history of adverse response to anesthesia Denies family history of Ovarian cancer Prostate cancer Breast cancer Colorectal cancer Social History Smoking Status: Former smoker Second Hand Exposure: No; Hx Alcohol Use: No Hx Substance Use: No Preferred Language: Polish Communication Ability: Effective Instrumentation Fitter Required: No Beliefs That Will Affect Care: None marital status: Current Living Situation: Spouse current occupational status: retired Feels Safe at Home: Yes caffeine: No Dental Care, Regularly: No Physical Activity Frequency: Daily Seatbelt Use: always Sunscreen Use: No Assistive Devices: None Review of Systems A total of 10 systems reviewed and were otherwise negative Physical Exam Vital Signs Vital Signs - 24 hr 05/30/20 10:00 05/30/20 11:40 05/30/20 11:43 Temperature 36.8 C Temperature Source Skin Pulse Rate - Lying Pulse Rate - Sitting Pulse Rate - Standing Pulse Rate 115 H 113 H 113 H Pulse Rate [Apical] Pulse Rate from SpO2 Sensor 114 H Pulse Rhythm [Apical] Respiratory Rate 20 16 21 Respiratory Effort / Characteristics Non-Labored Spontaneous Respiratory Depth Normal Respiratory Pattern Regular Blood Pressure - Lying Blood Pressure - Sitting Blood Pressure- Standing Blood Pressure 119/59 L 116/78 Blood Pressure [Right Arm] Blood Pressure Mean 79 90 Blood Pressure Mean [Right Arm] Blood Pressure Position [Right Arm] Pulse Oximetry 97 97 Oxygen Delivery Method Room Air Sepsis Recent Fever Within 48 Hours No Sepsis New/Unexplained Change in Mental Status N/A Sepsis Action Taken by Nursing No Action Required 05/30/20 11:45 05/30/20 11:46 05/30/20 11:50 Temperature Temperature Source Pulse Rate - Lying 112 H Pulse Rate - Sitting 122 H Pulse Rate - Standing 120 H Pulse Rate 121 H 122 H Pulse Rate [Apical] Pulse Rate from SpO2 Sensor 120 H Pulse Rhythm [Apical] Respiratory Rate 12 19 Respiratory Effort / Characteristics Respiratory Depth Respiratory Pattern Blood Pressure - Lying 116/78 Blood Pressure - Sitting 121/89 Blood Pressure- Standing 127/80 Blood Pressure 121/89 127/80 Blood Pressure [Right Arm] Blood Pressure Mean 99 95 Blood Pressure Mean [Right Arm] Blood Pressure Position [Right Arm] Pulse Oximetry 87 L Oxygen Delivery Method Sepsis Recent Fever Within 48 Hours Sepsis New/Unexplained Change in Mental Status Sepsis Action Taken by Nursing 05/30/20 12:00 05/30/20 12:02 05/30/20 12:03 Temperature Temperature Source Pulse Rate - Lying Pulse Rate - Sitting Pulse Rate - Standing Pulse Rate 119 H 110 H 109 H Pulse Rate [Apical] Pulse Rate from SpO2 Sensor 110 H Pulse Rhythm [Apical] Respiratory Rate 14 19 14 Respiratory Effort / Characteristics Respiratory Depth Respiratory Pattern Blood Pressure - Lying Blood Pressure - Sitting Blood Pressure- Standing Blood Pressure 97/77 L Blood Pressure [Right Arm] Blood Pressure Mean 83 Blood Pressure Mean [Right Arm] Blood Pressure Position [Right Arm] Pulse Oximetry 97 Oxygen Delivery Method Sepsis Recent Fever Within 48 Hours Sepsis New/Unexplained Change in Mental Status Sepsis Action Taken by Nursing 05/30/20 12:30 05/30/20 12:31 05/30/20 13:00 Temperature Temperature Source Pulse Rate - Lying Pulse Rate - Sitting Pulse Rate - Standing Pulse Rate 108 H 107 H 94 H Pulse Rate [Apical] Pulse Rate from SpO2 Sensor 107 H 107 H 94 H Pulse Rhythm [Apical] Respiratory Rate 20 17 15 Respiratory Effort / Characteristics Respiratory Depth Respiratory Pattern Blood Pressure - Lying Blood Pressure - Sitting Blood Pressure- Standing Blood Pressure 117/72 Blood Pressure [Right Arm] Blood Pressure Mean 87 Blood Pressure Mean [Right Arm] Blood Pressure Position [Right Arm] Pulse Oximetry 96 96 96 Oxygen Delivery Method Sepsis Recent Fever Within 48 Hours Sepsis New/Unexplained Change in Mental Status Sepsis Action Taken by Nursing 05/30/20 13:30 05/30/20 14:00 05/30/20 14:30 Temperature Temperature Source Pulse Rate - Lying Pulse Rate - Sitting Pulse Rate - Standing Pulse Rate 98 H 91 H 97 H Pulse Rate [Apical] Pulse Rate from SpO2 Sensor 97 H 91 H 97 H Pulse Rhythm [Apical] Respiratory Rate 16 14 18 Respiratory Effort / Characteristics Respiratory Depth Respiratory Pattern Blood Pressure - Lying Blood Pressure - Sitting Blood Pressure- Standing Blood Pressure Blood Pressure [Right Arm] Blood Pressure Mean Blood Pressure Mean [Right Arm] Blood Pressure Position [Right Arm] Pulse Oximetry 96 95 97 Oxygen Delivery Method Sepsis Recent Fever Within 48 Hours Sepsis New/Unexplained Change in Mental Status Sepsis Action Taken by Nursing 05/30/20 15:00 05/30/20 15:28 05/30/20 15:30 Temperature Temperature Source Pulse Rate - Lying Pulse Rate - Sitting Pulse Rate - Standing Pulse Rate 93 H 97 H 96 H Pulse Rate [Apical] 98 H Pulse Rate from SpO2 Sensor 95 H 98 H 96 H Pulse Rhythm [Apical] Regular Respiratory Rate 16 22 15 Respiratory Effort / Characteristics Non-Labored Spontaneous Respiratory Depth Normal Respiratory Pattern Regular Blood Pressure - Lying Blood Pressure - Sitting Blood Pressure- Standing Blood Pressure 120/74 Blood Pressure [Right Arm] 120/74 Blood Pressure Mean 89 Blood Pressure Mean [Right Arm] 89 Blood Pressure Position [Right Arm] Lying Pulse Oximetry 97 97 97 Oxygen Delivery Method Room Air Sepsis Recent Fever Within 48 Hours Sepsis New/Unexplained Change in Mental Status Sepsis Action Taken by Nursing 05/30/20 15:31 05/30/20 16:00 05/30/20 16:01 Temperature Temperature Source Pulse Rate - Lying Pulse Rate - Sitting Pulse Rate - Standing Pulse Rate 96 H 93 H 92 H Pulse Rate [Apical] Pulse Rate from SpO2 Sensor 96 H 93 H 92 H Pulse Rhythm [Apical] Respiratory Rate 12 12 4 L Respiratory Effort / Characteristics Respiratory Depth Respiratory Pattern Blood Pressure - Lying Blood Pressure - Sitting Blood Pressure- Standing Blood Pressure 96/73 L Blood Pressure [Right Arm] Blood Pressure Mean 115 80 Blood Pressure Mean [Right Arm] Blood Pressure Position [Right Arm] Pulse Oximetry 97 96 97 Oxygen Delivery Method Sepsis Recent Fever Within 48 Hours Sepsis New/Unexplained Change in Mental Status Sepsis Action Taken by Nursing 05/30/20 16:30 05/30/20 16:31 Temperature Temperature Source Pulse Rate - Lying Pulse Rate - Sitting Pulse Rate - Standing Pulse Rate 93 H 93 H Pulse Rate [Apical] Pulse Rate from SpO2 Sensor 93 H 93 H Pulse Rhythm [Apical] Respiratory Rate 15 14 Respiratory Effort / Characteristics Respiratory Depth Respiratory Pattern Blood Pressure - Lying Blood Pressure - Sitting Blood Pressure- Standing Blood Pressure 93/62 L Blood Pressure [Right Arm] Blood Pressure Mean 72 Blood Pressure Mean [Right Arm] Blood Pressure Position [Right Arm] Pulse Oximetry 96 96 Oxygen Delivery Method Sepsis Recent Fever Within 48 Hours Sepsis New/Unexplained Change in Mental Status Sepsis Action Taken by Nursing General: Well developed well nourished chronically ill-appearing older male who in no acute distress, breathing comfortably on room air. Normal speech HEENT: Normal cephalic atraumatic. Pupils are equal round and reactive to light. Extraocular movements are intact. Oropharynx is pink with somewhat dry mucous membranes. No swelling of the mouth lips or tongue. Neck: Supple with a midline trachea. No meningeal signs or stiffness, no JVD or bruits. No Stridor. Chest: Clear to auscultation bilaterally. No wheezes or rhonchi. No increased work of breathing. A port in left chest Heart: Regular rate and rhythm without murmurs or gallops. Abdomen: Soft nontender, he is nontender but does appear somewhat distended without rebound guarding or rigidity. Extremities: No cyanosis clubbing 1+ bilateral edema. No calf tenderness or assymetry Spine/Back. Non tender to palpation. No CVA tenderness Skin: Good turgor without rashes. Neurologic exam: Cranial nerves two through 12 are intact. Motor and sensation are intact and symmetrical throughout. Course Administered Medications Parenteral Electrolytes (Normosol-R) 1,000 mls @ 100 mls/hr IV .Q10H NOEL Stop: 06/29/20 14:29 Last Admin: 05/30/20 15:30 Dose: 100 mls/hr Documented by: [id number] Piperacillin Sod/Tazobactam (Sod 3.375 gm/ Dextrose) 115 mls @ 28.75 mls/hr IV Q8H NOEL; Protocol Stop: 06/09/20 14:59 Last Admin: 05/30/20 15:29 Dose: 28.8 mls/hr Documented by: [id number] Discontinued Medications Cefepime HCl (Cefepime 2,000 Mg/20 Ml Vial) Confirm Administered Dose 2,000 mg .ROUTE .STK-MED ONE Stop: 05/30/20 12:50 Last Admin: 05/30/20 12:50 Dose: 2,000 mg Documented by: [id number] Sodium Chloride (Nss 1000ml) 1,000 mls @ 999 mls/hr IV .Q1H1M ONE Stop: 05/30/20 12:07 Last Admin: 05/30/20 11:58 Dose: 999 mls/hr Documented by: [id number] Cefepime HCl 2,000 mg/ Syringe 20 mls @ 5 mls/min IV NOW STA; Protocol Stop: 05/30/20 12:37 Last Admin: 05/30/20 12:51 Dose: Not Given Documented by: [id number] Morphine Sulfate (Morphine Sulfate 2 Mg/Ml Carp) 2 mg IV NOW STA Stop: 05/30/20 11:08 Last Admin: 05/30/20 11:59 Dose: 2 mg Documented by: [id number] Ondansetron HCl (Ondansetron Inj 2 Mg/Ml 2 Ml Vial) 4 mg IV NOW STA Stop: 05/30/20 11:08 Last Admin: 05/30/20 11:59 Dose: 4 mg Documented by: [id number] Medical Decision Making Differential Diagnosis Dehydration, complication related to cancer or chemotherapy, infection, peritonitis, SBP, Covid, cardiac disease, electrolyte or metabolic abnormalities Medical Records Attestation: I reviewed the patient's medical records. Home Medications Current Medication List: was personally reviewed by me Laboratory Data Attestation: I reviewed the patient's lab results. Result diagrams: 05/30/20 11:29 05/30/20 11:12 Lab Results 05/30/20 05/30/20 05/30/20 Range/Units 10:05 11:12 11:29 WBC 17.75 H (4.8-10.8) K/uL RBC 3.76 L (4.7-6.1) M/uL Hgb 10.2 L (14.0-18.0) g/dL Hct 29.8 L (42-52) % MCV 79.3 L (80-100) fL MCH 27.1 (25-34) pg MCHC 34.2 (32-36) g/dL RDW Std Deviation 60.8 H (36.4-46.3) fL RDW Coeff of Aron 20.9 H (11.5-14.5) % Plt Count 415 H (130-400) K/uL MPV 9.5 (7.4-10.4) fL Immature Gran % (Auto) 0.7 % Neut % (Auto) 82.7 % Lymph % (Auto) 12.4 % [place] % (Auto) 4.0 % Eos % (Auto) 0.1 % Baso % (Auto) 0.1 % Neut # (Auto) 14.68 H (1.4-6.5) K/uL Lymph # (Auto) 2.20 (1.2-3.4) K/uL [place] # (Auto) 0.71 H (0.11-0.59) K/uL Eos # (Auto) 0.02 (0-0.5) K/uL Baso # (Auto) 0.01 (0-0.2) K/uL Immature Gran # (Auto) 0.13 H (0.00-0.02) K/uL Toxic Granulation 1+ Microcytosis Present Echinocytes 2+ Sodium 136 (136-145) mmol/L Potassium 3.8 (3.5-5.1) mmol/L Chloride 107 (98-107) mmol/L Carbon Dioxide 17 L (21-32) mmol/L Anion Gap 12.0 H (3-11) BUN 28 H (7-18) mg/dl Creatinine 0.63 (0.6-1.4) mg/dl Est Cr Clr Drug Dosing 101.3 ml/min Est GFR ( Amer) 117.4 Est GFR (Non-Af Amer) 101.3 BUN/Creatinine Ratio 43.7 H (10-20) Glucose 135 H (70-99) mg/dl Lactate (0.4-2.0) mmol/L Calcium 8.8 (8.5-10.1) mg/dl Total Bilirubin 1.4 H (0.2-1) mg/dl AST 26 (15-37) U/L ALT 30 (12-78) U/L Alkaline Phosphatase 253 H (45-117) U/L Troponin I < 0.015 (0-0.045) ng/ml Total Protein 6.3 L (6.4-8.2) gm/dl Albumin 2.1 L (3.4-5.0) gm/dl Globulin 4.2 H (2.5-4.0) gm/dl Albumin/Globulin Ratio 0.5 L (0.9-2) TSH 5.270 H (0.300-4.500) uIu/ml Urine Color Dark Yellow Urine Appearance Clear (Clear) Urine pH 6.0 (4.5-7.5) Ur Specific [place] 1.025 (1.000-1.030) Urine Protein Trace H (Negative) Urine Glucose (UA) Negative (Negative) Urine Ketones Trace H (Negative) Urine Blood Negative (Negative) Urine Nitrite Negative (Negative) Urine Bilirubin 1+ H (Negative) Urine Urobilinogen Negative (Negative) Ur Leukocyte Esterase Negative (Negative) Urine WBC (Auto) 1-5 (0-5) /hpf Urine RBC (Auto) 0-4 (0-4) /hpf U Hyaline Cast (Auto) 5-10 H (0-5) /lpf U Epithel Cells (Auto) 20-30 H (0-5) /lpf Urine Bacteria (Auto) Negative (Negative) COVID-19 Eval Order SARS-CoV-2 (PCR) (Negative) Influenza Type A (PCR) (Neg) Influenza Type B (PCR) (Neg) RSV (RT-PCR) (Neg) 05/30/20 05/30/20 05/30/20 Range/Units 11:29 11:51 11:51 WBC (4.8-10.8) K/uL RBC (4.7-6.1) M/uL Hgb (14.0-18.0) g/dL Hct (42-52) % MCV (80-100) fL MCH (25-34) pg MCHC (32-36) g/dL RDW Std Deviation (36.4-46.3) fL RDW Coeff of Aron (11.5-14.5) % Plt Count (130-400) K/uL MPV (7.4-10.4) fL Immature Gran % (Auto) % Neut % (Auto) % Lymph % (Auto) % [place] % (Auto) % Eos % (Auto) % Baso % (Auto) % Neut # (Auto) (1.4-6.5) K/uL Lymph # (Auto) (1.2-3.4) K/uL [place] # (Auto) (0.11-0.59) K/uL Eos # (Auto) (0-0.5) K/uL Baso # (Auto) (0-0.2) K/uL Immature Gran # (Auto) (0.00-0.02) K/uL Toxic Granulation Microcytosis Echinocytes Sodium (136-145) mmol/L Potassium (3.5-5.1) mmol/L Chloride (98-107) mmol/L Carbon Dioxide (21-32) mmol/L Anion Gap (3-11) BUN (7-18) mg/dl Creatinine (0.6-1.4) mg/dl Est Cr Clr Drug Dosing ml/min Est GFR ( Amer) Est GFR (Non-Af Amer) BUN/Creatinine Ratio (10-20) Glucose (70-99) mg/dl Lactate 2.6 H* (0.4-2.0) mmol/L Calcium (8.5-10.1) mg/dl Total Bilirubin (0.2-1) mg/dl AST (15-37) U/L ALT (12-78) U/L Alkaline Phosphatase (45-117) U/L Troponin I (0-0.045) ng/ml Total Protein (6.4-8.2) gm/dl Albumin (3.4-5.0) gm/dl Globulin (2.5-4.0) gm/dl Albumin/Globulin Ratio (0.9-2) TSH (0.300-4.500) uIu/ml Urine Color Urine Appearance (Clear) Urine pH (4.5-7.5) Ur Specific [place] (1.000-1.030) Urine Protein (Negative) Urine Glucose (UA) (Negative) Urine Ketones (Negative) Urine Blood (Negative) Urine Nitrite (Negative) Urine Bilirubin (Negative) Urine Urobilinogen (Negative) Ur Leukocyte Esterase (Negative) Urine WBC (Auto) (0-5) /hpf Urine RBC (Auto) (0-4) /hpf U Hyaline Cast (Auto) (0-5) /lpf U Epithel Cells (Auto) (0-5) /lpf Urine Bacteria (Auto) (Negative) COVID-19 Eval Order CovFluRsv at [facility] SARS-CoV-2 (PCR) NEGATIVE (Negative) Influenza Type A (PCR) Negative (Neg) Influenza Type B (PCR) Negative (Neg) RSV (RT-PCR) Negative (Neg) 05/30/20 Range/Units 13:32 WBC (4.8-10.8) K/uL RBC (4.7-6.1) M/uL Hgb (14.0-18.0) g/dL Hct (42-52) % MCV (80-100) fL MCH (25-34) pg MCHC (32-36) g/dL RDW Std Deviation (36.4-46.3) fL RDW Coeff of Aron (11.5-14.5) % Plt Count (130-400) K/uL MPV (7.4-10.4) fL Immature Gran % (Auto) % Neut % (Auto) % Lymph % (Auto) % [place] % (Auto) % Eos % (Auto) % Baso % (Auto) % Neut # (Auto) (1.4-6.5) K/uL Lymph # (Auto) (1.2-3.4) K/uL [place] # (Auto) (0.11-0.59) K/uL Eos # (Auto) (0-0.5) K/uL Baso # (Auto) (0-0.2) K/uL Immature Gran # (Auto) (0.00-0.02) K/uL Toxic Granulation Microcytosis Echinocytes Sodium (136-145) mmol/L Potassium (3.5-5.1) mmol/L Chloride (98-107) mmol/L Carbon Dioxide (21-32) mmol/L Anion Gap (3-11) BUN (7-18) mg/dl Creatinine (0.6-1.4) mg/dl Est Cr Clr Drug Dosing ml/min Est GFR ( Amer) Est GFR (Non-Af Amer) BUN/Creatinine Ratio (10-20) Glucose (70-99) mg/dl Lactate 3.6 H* (0.4-2.0) mmol/L Calcium (8.5-10.1) mg/dl Total Bilirubin (0.2-1) mg/dl AST (15-37) U/L ALT (12-78) U/L Alkaline Phosphatase (45-117) U/L Troponin I (0-0.045) ng/ml Total Protein (6.4-8.2) gm/dl Albumin (3.4-5.0) gm/dl Globulin (2.5-4.0) gm/dl Albumin/Globulin Ratio (0.9-2) TSH (0.300-4.500) uIu/ml Urine Color Urine Appearance (Clear) Urine pH (4.5-7.5) Ur Specific [place] (1.000-1.030) Urine Protein (Negative) Urine Glucose (UA) (Negative) Urine Ketones (Negative) Urine Blood (Negative) Urine Nitrite (Negative) Urine Bilirubin (Negative) Urine Urobilinogen (Negative) Ur Leukocyte Esterase (Negative) Urine WBC (Auto) (0-5) /hpf Urine RBC (Auto) (0-4) /hpf U Hyaline Cast (Auto) (0-5) /lpf U Epithel Cells (Auto) (0-5) /lpf Urine Bacteria (Auto) (Negative) COVID-19 Eval Order SARS-CoV-2 (PCR) (Negative) Influenza Type A (PCR) (Neg) Influenza Type B (PCR) (Neg) RSV (RT-PCR) (Neg) Imaging Data Radiologist's Impression: Chest X-Ray 05/30/20 10:10 XR chest 1V portable HISTORY: 70 years-old Male weakness acute weakness COMPARISON: Chest radiograph 12/08/2018, chest CT 12/06/2019 TECHNIQUE: Portable AP view of the chest FINDINGS: Cardiac silhouette is enlarged. Lungs are hypoinflated. A right subclavian Lijtud-p-Tbkj catheter is noted with distal tip projected superiorly on the right neck, distal tip not imaged. This was also noted on comparison chest CT. Right hemidiaphragmatic elevation. Patchy bilateral nodular opacities are redemonstrated measuring up to 8 mm of the right midlung. No pneumothorax, large pleural effusion or overt pulmonary edema. No airspace consolidation typical for pneumonia. Degenerative changes of the shoulders and spine. IMPRESSION: 1. Hypoinflation without acute process. 2. Pulmonary metastasis redemonstrated. 3. Right subclavian Srximj-x-Ipys catheter is again noted coursing into the internal jugular vein. ACT 112: Negative or not required by law. The above report was generated using voice recognition software. It may contain grammatical, syntax or spelling errors. Electronically signed by: Reed Rothman M.D. 05/30/2020 10:51 AM Abdomen/Pelvis CT 05/30/20 14:41 CT SCAN OF THE ABDOMEN AND PELVIS WITHOUT IV CONTRAST CLINICAL HISTORY: Cellulitis. Generalized abdominal pain. Pancreatic cancer. Increasing weakness. COMPARISON STUDY: Abdominal CT dated 12/06/2019. TECHNIQUE: CT scan of the abdomen and pelvis is performed from the lung bases to the proximal femora. Images are reviewed in the axial, sagittal, and coronal planes. IV contrast was not administered for this examination. Note that the examination was performed in suboptimal fashion without oral and IV contrast. A dose lowering technique was utilized adhering to the principles of ALARA. CT DOSE: 668.13 mGy.cm FINDINGS: Lung bases: The heart is normal in size noting trace pericardial effusion. The coronary arteries and mitral annulus are densely calcified. There is bibasilar scarring/atelectasis. No airspace consolidation is seen typical for pneumonia and there is no pleural effusion. Irregular bibasilar pulmonary nodules are again noted. A access representative 1.9 cm irregular nodule in the right middle lobe is seen on image #4, a 0.7 cm right middle lobe nodule is seen on image #18, and a 1.2 cm pleural-based nodules at the left lung base on image #51. Liver: There is a large crescentic fluid collection along the right lobe of liver. This scallops the right lobe of the liver, and is either subcapsular or perihepatic in location. This measures approximately 22 x 19 x 8 cm, and this communicates with abdominal ascites inferior to the liver. There are foci of gas within this fluid seen on axial image #130. The unenhanced liver is heterogeneous and demonstrates diffusely diminished attenuation consistent with hepatic steatosis. Pneumobilia is noted in the left lobe. There is no intrahepatic biliary ductal dilatation. Gallbladder: Surgically absent noting clips in the gallbladder fossa. Spleen: Normal in size and attenuation. Pancreas: The unenhanced pancreas is atrophic. The pancreatic head is surgically absent. A stent is noted in the pancreatic duct. A 4 cm infiltrative lesion is again seen in the expected location of the pancreatic head on image #183. This is not well assessed without IV contrast. Adrenal glands: Unremarkable. Kidneys: The unenhanced kidneys are atrophic and without hydronephrosis. There is a punctate nonobstructing calculus in the left upper pole. A 1.5 cm cyst is again noted in the right kidney. Abdominal vasculature: The abdominal aorta is normal in course and caliber noting moderate to advanced atherosclerotic calcification. Bowel: The duodenum is surgically absent and there is a gastrojejunostomy consistent with previous Whipple procedure. Matted loops of bowel in the issa hepatis are related to pancreaticojejunostomy and hepaticojejunostomy. There is no bowel obstruction. Question mild diffuse wall thickening of the colon and rectum. The appendix is not identified and reported surgically absent. Peritoneum: There is a moderate volume of pelvic ascites. No intraperitoneal free air is clearly identified. As noted above, there is gas within the perihepatic fluid collection. Gas and fluid is present within the umbilical hernia. There is also ascitic fluid containing supra umbilical hernia. Lymphadenopathy: A mildly enlarged upper abdominal lymph node on image #189 measures 1.5 cm. Pelvic viscera: The prostate gland is enlarged and heterogeneous noting median lobe hypertrophy. The bladder is distended but otherwise normal in appearance. There is evidence of previous left inguinal herniorrhaphy. A small fat- containing hernia is seen on the right. Skeletal structures: The skeletal structures are osteopenic. Mild to moderate lumbosacral spondylosis is noted. No lytic or blastic lesions are seen. There are healed right-sided rib fractures. Soft tissues: There is body wall edema. IMPRESSION: 1. Significantly suboptimal examination without oral and IV contrast. 2. Postoperative changes consistent with previous Whipple procedure. 3. There is a large crescentic fluid collection along the right lobe of liver as detailed above which measures up to 22 cm. This scallops the hepatic surface contour, and is either subcapsular or perihepatic in location. This demonstrate a thick wall and contains small foci of gas. This is highly concerning for infection/abscess. 4. The perihepatic fluid collection communicates with a moderate volume of abdominopelvic ascites. 5. An infiltrative mass lesion is again seen in the expected location of the pancreatic head and a stent is noted within the pancreatic duct. 6. Irregular pulmonary nodules likely represent metastatic disease. 7. Question diffuse colonic wall thickening. Correlate clinically for evidence of a nonspecific proctocolitis. 8. Additional findings as above. ACT 112: Negative or not required by law. Electronically signed by: Rocky Hinds M.D. 05/30/2020 3:42 PM ECG Data Attestation: I personally reviewed and interpreted this ECG as follows: Indication: + weakness Rate (beats per minute): 111 Rhythm: + sinus tachycardia ECG Intervals/blocks: + Right Bundle branch block, + Normal QT and + Normal IA ECG [place]: + Left axis deviation ECG ST segments: + Normal ST segments ECG Findings: no PACs and no PVCs Comparison ECG Date: from (12/08/18) Change: no significant change MDM Narrative This patient comes in as described above. he is being treated for pancreatic cancer and has had a functional decline has had increasing weakness and pain. IV access established through his port. He was given 1 liter IV normal saline bolus as well as morphine 2 mg IV as well as Zofran 4 mg IV. Multiple blood testing was obtained. He was reassessed frequently. I reviewed his records from [place] he had a CAT scan done there about a week ago had multiple findings related to his cancer he also had a clot in his portal vein. He did receive cefepime 2 g IV here after his white count came back elevated 17 his actually down from 23 last week. Lactic acid is mildly elevated in the low twos. His BUN is little bit elevated, along with his dehydration. Blood cultures were obtained I do think he needs to be admitted for further treatment and evaluation. I did consult Dr. Saldana who saw the patient in the ER. He did repeat the CAT scan which does show some fluid or possible infection along the liver. The patient will be admitted for further treatment and evaluation. Continuous cardiac monitoring: Order was placed in EMR for continuous cardiac monitoring due to his weakness. I personally interpreted the strip and shows normal sinus rhythm with a rate of 90. Impression & Plan Weakness, Acute dehydration, Metastasis from pancreatic cancer, Back pain Discharge Plan Visit Data Chief Complaint: Weakness Stated Complaint: CHEMO TREATMENTS - WEAK AND DEHYDRATED ED Provider: Andrea Flores Discharge Problem: Weakness, Acute dehydration, Metastasis from pancreatic cancer, Back pain Forms Stand Alone Forms: My [facility] [place] Prescriptions Prescriptions: No Action furosemide [Lasix] 40 mg tablet 40 mg PO DAILY RF: 0 metformin 1,000 mg tablet 1,000 mg PO QAM Qty: 90 RF: 1 Creon 3,000-9,500- 15,000 unit capsule,delayed release(DR/EC) 1 cap PO TIDM Qty: 60 RF: 0 metformin 500 mg tablet 500 mg PO QPM Qty: 15 RF: 0 potassium chloride 20 mEq tablet,ER particles/crystals 20 meq PO TID RF: 0 hydrocodone-acetaminophen 5-325 mg tablet 1 tab PO Q6H PRN (Reason: Pain) RF: 0 gabapentin 300 mg capsule 300 mg PO TID RF: 0 Discharge Problem: Back pain Qualifiers: Back pain location: thoracic back pain Chronicity: acute Back pain laterality: midline Qualified Code(s): M54.6 - Pain in thoracic spine
[2020-05-30 11:55] LABS: Hematocrit (blood only) 29.8 % (42-52); Hemoglobin 10.2 g/dL (14.0-18.0); Mean Corpuscular Hemoglobin 27.1 pg (25-34); Mean Corpuscular Hgb Conc 34.2 g/dL (32-36); Mean Corpuscular Volume 79.3 fL (80-100); Mean Platelet Volume 9.5 fL (7.4-10.4); Platelet Count 415 K/uL (130-400); RDW Coefficient of Variation 20.9 % (11.5-14.5); RDW Standard Deviation 60.8 fL (36.4-46.3); Red Blood Count 3.76 M/uL (4.7-6.1); White Blood Count 17.75 K/uL (4.8-10.8)
[2020-05-30 12:11] LABS: Alanine Aminotransferase 30 U/L (12-78); Albumin Level 2.1 gm/dl (3.4-5.0); Aspartate Aminotransferase 26 U/L (15-37); BUN Creatinine Ratio 43.7 (10-20); Blood Urea Nitrogen 28 mg/dl (7-18); Calcium 8.8 mg/dl (8.5-10.1); Carbon Dioxide 17 mmol/L (21-32); Chloride 107 mmol/L (98-107); Creatinine Clr Calc Pharmacy 101.3 ml/min; Est GFR (African American) 117.4; Est GFR (Non-African American) 101.3; Glucose 135 mg/dl (70-99); Potassium 3.8 mmol/L (3.5-5.1); Sodium 136 mmol/L (136-145)
[2020-05-30 12:22] LABS: Albumin Globulin Ratio 0.5 (0.9-2); Alkaline Phosphatase 253 U/L (45-117); Bilirubin,Total 1.4 mg/dl (0.2-1); Globulin 4.2 gm/dl (2.5-4.0); Total Protein 6.3 gm/dl (6.4-8.2); Troponin I < 0.015 ng/ml (0-0.045)
[2020-05-30] MEDS ORDERED: CEFEPIME 2,000 MG in SYRINGE 0 ML IV STA (12:34)
[2020-05-30 12:42] LABS: Influenza A virus by PCR Negative (Neg); Influenza B virus by PCR Negative (Neg); RSV by PCR Negative (Neg); SARS CoV2 RNA(COVID-19) InHosp NEGATIVE (Negative)
[2020-05-30 12:48] LABS: Basophils # (auto) 0.01 K/uL (0-0.2); Basophils % (auto) 0.1 %; Echinocytes 2+; Eosinophils # (auto) 0.02 K/uL (0-0.5); Eosinophils % (auto) 0.1 %; Immature Granulocytes # (auto) 0.13 K/uL (0.00-0.02); Immature Granulocytes % (auto) 0.7 %; Lymphocytes % (auto) 12.4 %; Microcytosis Present; Monocytes # (auto) 0.71 K/uL (0.11-0.59); Neutrophils # (auto) 14.68 K/uL (1.4-6.5); Neutrophils % (auto) 82.7 %; Toxic Granulation 1+
[2020-05-30] MEDS ORDERED: CEFEPIME 2,000 MG/20 ML VIAL ONE (12:49)
[2020-05-30] MEDS ORDERED: NORMOSOL-R 250 ML IV ONE (14:18)
[2020-05-30] MEDS ORDERED: PIPERACILL/TAZOBAC CONSULT ACTIVE PRN (14:48)
--- NOTE | 2020-05-30 14:53 | History & Physical Report ---
Date of Service May 30, 2020 Assessment & Plan (1) Sepsis: Patient with what appears to be abdominal source sepsis with ? abscess - SIRS-2 qSOFA- 1, with WBC 17.75; NLR 7:1; Lactate 3.6; - Zosyn 3.375 IV q8; Vancomycin pharmacy to dose - cultures pending - CT abdomen and Pelvis without contrast- IR drainage for abscess scheduled for AM - Lactate now with CRP, PCT, ESR- CRP q am - Normosol at 100 ml an hour following 250 bolus - Follow hemodynamics- HEMANT (2) HMEANT (acute kidney injury): Mild with elevation in BUN- still normal - Hyaline casts present on UA - Trace protein in urine - hydrate as above (3) Primary pancreatic adenocarcinoma: No acute issues; would like to reattempt paracentesis with cell count and cytology when stable - Consider in morning I was able to speak with the daughter and the and the niece at the bedside in the evening. The did confirm that patient did wish to be DNR/DNI (code status updated) - Also wish to evaluate in morning with cultures and drainage, and then discuss further management and goals (4) Diabetes mellitus: Discontinue metformin- Placed on sliding scale; goal 120-180 (5) Hypertension: No acute need- Hold lasix 80 mg - restart when adequately perfused (6) Ascites: Consider in the AM re-tapping patient with IR drainage and abscess drainage (7) Venous thrombosis: Patient not on anticoagulation- secondary to fall risk per review (8) Chronic low back pain: Patient was to have block yesterday performed, but secondary to his labs, they postponed - Patient is doing well with his oral medication per patient and daughter- co ntinue hydrocodone/Acetaminophen 5/325 q 6 hours, can increase to 2 tabs if needed. - Consider lidocaine patches. History of Present Illness Chief Complaint: weakness Primary Care Provider: LEONCIO Chance 70 YOM with past medical history of adenocarcinoma pancreatic cancer; with pulmonary metastasis; completed 4 cycles of Abraxane, Whipple procedure, DM II, HLD, chronic low back pain, portal vein thrombosis; had follow up CT scan done last week that showed moderate volume ascites. He then had a Paracentesis performed on the May, where he had 2L fluid removed. He originally felt better after the fluid removal; however over the past few days he had a sensation of early saiety and nausea, which led to decrease appetite and oral intake. He denies any fevers, chills, or abdominal discomfort, just feeling weak. In the EMD the patient had a CXR done, basic labs, blood cultures, urine culture, and ECG performed; he also got 1 dose of Cefepime and 1 Liter of 0.9% saline. The hospitalist team was notified for admission. Upon my evaluation, the patient was resting on his side comfortable and his daughter was present. The patient was mentating well and answering questions appropriately. On physical exam, it was noted that the patient had some localized redness at the paracentesis site, and approximately a 4x6 indurated area under the paracentesis site, it was not fluctuant, it was also noted that at his umbi licus, there was a pinhole sized opening that drained small amount of purulence and then followed by clear fluid. Patient will be admitted for IV antibiotics, CT of the abdomen obtained, and will intravascularly rehydrated. No records of the ascitic fluid being sent from the procedure note, or any samples in microbiology. Allergies Allergy/AdvReac Type Severity Reaction Status Date / Time No Known Drug Allergies Allergy Unknown Verified 05/30/20 12:03 Home Medications Medication Instructions Recorded Confirmed Type potassium chloride 20 meq PO TID 11/16/19 05/30/20 History metformin 1,000 mg tablet 1,000 mg PO QAM #90 tab 02/14/20 05/30/20 Rx [id number]-[id number]-kqxykfk 1 cap PO TIDM #60 cap 02/28/20 05/30/20 Rx 3,000-9,500-15,000 unit capsule,delayed releas metformin 500 mg tablet 500 mg PO QPM #15 tab 02/28/20 05/30/20 Rx furosemide 40 mg tablet 40 mg PO DAILY 05/29/20 05/30/20 History gabapentin 300 mg PO TID 05/30/20 05/30/20 History hydrocodone-acetaminophen 1 tab PO Q6H PRN 05/30/20 05/30/20 History Past Med/Surg History Medical History Cancer related pain Diabetes mellitus, type 2 NIDDM Dyslipidemia pt denies Elevated INR Encounter for pre-operative examination History of pancreatic cancer DX 2017 - S/P CHEMO, SURGERY Metastasis Port-A-Cath in place (11/15/18) Insertion of Mediport Right Cephalic Vein Dr. Galdamez 11/15/18 Primary pancreatic adenocarcinoma Sepsis treated at [facility] 11/2018 Surgical History History of biliary duct stent placement REMOVED History of ERCP History of hernia repair History of open reduction and internal fixation (ORIF) procedure RIGHT ARM History of surgery WHIPPLE SURGERY 2017 History of vascular access device INSERTION AND REMOVAL S/P hardware removal right arm Family History Brother Family history of diabetes mellitus Mother Family history of diabetes mellitus Father Myocardial infarction Other No family history of adverse response to anesthesia Denies family history of Ovarian cancer Prostate cancer Breast cancer Colorectal cancer Social History Smoking Status: Former smoker Second Hand Exposure: No; Hx Alcohol Use: No Hx Substance Use: No Preferred Language: Greenlandic Communication Ability: Effective Publications Distribution Clerk Required: No Beliefs That Will Affect Care: None marital status: Current Living Situation: Spouse current occupational status: retired Other Information That Helps Us Care for You: No Feels Safe at Home: Yes Safety Concerns: Feels Safe At This Time caffeine: No Dental Care, Regularly: No Physical Activity Frequency: Daily Seatbelt Use: always Sunscreen Use: No Assistive Devices: Walker Review of Systems Review of Systems: REVIEW OF SYSTEMS: Constitutional: No fever, sweats or chills Eyes: No diplopia, no worsening or blurred vision ENT: normal hearing, no trouble swallowing Respiratory: dyspnea at rest or on exertion No cough, sputum, Cardiovascular: No chest pain, tightness or palpitations Abdomen: (+) early satiety, nausea, (-) vomiting, diarrhea or constipation Musculoskeletal: No joint pain, calf pain, swelling Neurologic: No weakness, numbness/tingling, or balance problems Psychiatric: No anxiety or depression Skin: No rash or itch Physical Exam Physical Exam: PHYSICAL EXAM: General: awake, alert, no apparent distress, fragile ill Head: Normocephalic, atraumatic ENT: PERRLA, EOMI, no pharyngeal exudate, mucous membranes moist Neuro: AAO x 3, speech clear and appropriate, strength intact bilaterally 5/5, sensation intact and equal all extremities and dermatomes, no pronator drift Chest: equal rise and fall of the chest, no accessory muscle use, no heaves or thrills, Clear to auscultation, on room air, Cardiac: Regular rate and rhythm, telemetry reviewed, skin warm dry, cap refill <3 seconds, peripheral pulses +2 no JVD, no murmur, (+) 2 edema to bilateral lower extremities GI: Abdomen round, (+) ascitic wave, induration at paracentesis site, purulent drainage at umbilicus, quadrants, soft, nontender to palpation, no rebound, guarding or tenderness : Spontaneously voiding, no pain, no CVA tenderness, Extremities: Normal inspection, no peripheral edema or erythema, calfs nontender to palpation Psych: Normal mood and affect Skin: no rash or erythema Results & Data Results & Data ([facility]) Vital Signs (Past 12 Hours) Vital Signs Temp Pulse Resp BP Pulse Ox 05/30/20 12:02 110 H 19 97/77 L 05/30/20 12:00 119 H 14 05/30/20 11:46 122 H 19 127/80 05/30/20 11:45 121 H 12 121/89 87 L 05/30/20 11:43 113 H 21 116/78 97 05/30/20 11:40 113 H 16 05/30/20 10:00 36.8 C 115 H 20 119/59 L 97 Laboratory Results Abnormal lab results 05/30/20 05/30/20 05/30/20 Range/Units 10:05 11:12 11:29 WBC 17.75 H (4.8-10.8) K/uL RBC 3.76 L (4.7-6.1) M/uL Hgb 10.2 L (14.0-18.0) g/dL Hct 29.8 L (42-52) % MCV 79.3 L (80-100) fL RDW Std Deviation 60.8 H (36.4-46.3) fL RDW Coeff of Aron 20.9 H (11.5-14.5) % Plt Count 415 H (130-400) K/uL Neut # (Auto) 14.68 H (1.4-6.5) K/uL [place] # (Auto) 0.71 H (0.11-0.59) K/uL Immature Gran # (Auto) 0.13 H (0.00-0.02) K/uL Carbon Dioxide 17 L (21-32) mmol/L Anion Gap 12.0 H (3-11) BUN 28 H (7-18) mg/dl BUN/Creatinine Ratio 43.7 H (10-20) Glucose 135 H (70-99) mg/dl Lactate (0.4-2.0) mmol/L Total Bilirubin 1.4 H (0.2-1) mg/dl Alkaline Phosphatase 253 H (45-117) U/L Total Protein 6.3 L (6.4-8.2) gm/dl Albumin 2.1 L (3.4-5.0) gm/dl Globulin 4.2 H (2.5-4.0) gm/dl Albumin/Globulin Ratio 0.5 L (0.9-2) TSH 5.270 H (0.300-4.500) uIu/ml Urine Protein Trace H (Negative) Urine Ketones Trace H (Negative) Urine Bilirubin 1+ H (Negative) U Hyaline Cast (Auto) 5-10 H (0-5) /lpf U Epithel Cells (Auto) 20-30 H (0-5) /lpf 05/30/20 05/30/20 Range/Units 11:29 13:32 WBC (4.8-10.8) K/uL RBC (4.7-6.1) M/uL Hgb (14.0-18.0) g/dL Hct (42-52) % MCV (80-100) fL RDW Std Deviation (36.4-46.3) fL RDW Coeff of Aron (11.5-14.5) % Plt Count (130-400) K/uL Neut # (Auto) (1.4-6.5) K/uL [place] # (Auto) (0.11-0.59) K/uL Immature Gran # (Auto) (0.00-0.02) K/uL Carbon Dioxide (21-32) mmol/L Anion Gap (3-11) BUN (7-18) mg/dl BUN/Creatinine Ratio (10-20) Glucose (70-99) mg/dl Lactate 2.6 H* 3.6 H* (0.4-2.0) mmol/L Total Bilirubin (0.2-1) mg/dl Alkaline Phosphatase (45-117) U/L Total Protein (6.4-8.2) gm/dl Albumin (3.4-5.0) gm/dl Globulin (2.5-4.0) gm/dl Albumin/Globulin Ratio (0.9-2) TSH (0.300-4.500) uIu/ml Urine Protein (Negative) Urine Ketones (Negative) Urine Bilirubin (Negative) U Hyaline Cast (Auto) (0-5) /lpf U Epithel Cells (Auto) (0-5) /lpf Diagnostic Findings XR chest 1V portable HISTORY: 70 years-old Male weakness acute weakness COMPARISON: Chest radiograph 12/08/2018, chest CT 12/06/2019 TECHNIQUE: Portable AP view of the chest FINDINGS: Cardiac silhouette is enlarged. Lungs are hypoinflated. A right subclavian Sdkuqm-c-Sfmn catheter is noted with distal tip projected superiorly on the right neck, distal tip not imaged. This was also noted on comparison chest CT. Right hemidiaphragmatic elevation. Patchy bilateral nodular opacities are redemonstrated measuring up to 8 mm of the right midlung. No pneumothorax, large pleural effusion or overt pulmonary edema. No airspace consolidation typical for pneumonia. Degenerative changes of the shoulders and spine. IMPRESSION: 1. Hypoinflation without acute process. 2. Pulmonary metastasis redemonstrated. 3. Right subclavian Wavtwp-q-Pqud catheter is again noted coursing into the internal jugular vein. CT SCAN OF THE ABDOMEN AND PELVIS WITHOUT IV CONTRAST CLINICAL HISTORY: Cellulitis. Generalized abdominal pain. Pancreatic cancer. Increasing weakness. COMPARISON STUDY: Abdominal CT dated 12/06/2019. TECHNIQUE: CT scan of the abdomen and pelvis is performed from the lung bases to the proximal femora. Images are reviewed in the axial, sagittal, and coronal planes. IV contrast was not administered for this examination. Note that the examination was performed in suboptimal fashion without oral and IV contrast. A dose lowering technique was utilized adhering to the principles of ALARA. CT DOSE: 668.13 mGy.cm FINDINGS: Lung bases: The heart is normal in size noting trace pericardial effusion. The coronary arteries and mitral annulus are densely calcified. There is bibasilar scarring/atelectasis. No airspace consolidation is seen typical for pneumonia and there is no pleural effusion. Irregular bibasilar pulmonary nodules are again noted. 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 Liver: There is a large crescentic fluid collection along the right lobe of liver. This scallops the right lobe of the liver, and is either subcapsular or perihepatic in location. This measures approximately 22 x 19 x 8 cm, and this communicates with abdominal ascites inferior to the liver. There are foci of gas within this fluid seen on axial image #130. The unenhanced liver is heterogeneous and demonstrates diffusely diminished attenuation consistent with hepatic steatosis. Pneumobilia is noted in the left lobe. There is no intrahepatic biliary ductal dilatation. Gallbladder: Surgically absent noting clips in the gallbladder fossa. Spleen: Normal in size and attenuation. Pancreas: The unenhanced pancreas is atrophic. The pancreatic head is surgically absent. A stent is noted in the pancreatic duct. A 4 cm infiltrative lesion is again seen in the expected location of the pancreatic head on image #183. This is not well assessed without IV contrast. Adrenal glands: Unremarkable. Kidneys: The unenhanced kidneys are atrophic and without hydronephrosis. There is a punctate nonobstructing calculus in the left upper pole. A 1.5 cm cyst is again noted in the right kidney. Abdominal vasculature: The abdominal aorta is normal in course and caliber noting moderate to advanced atherosclerotic calcification. Bowel: The duodenum is surgically absent and there is a gastrojejunostomy consistent with previous Whipple procedure. Matted loops of bowel in the issa hepatis are related to pancreaticojejunostomy and hepaticojejunostomy. There is no bowel obstruction. Question mild diffuse wall thickening of the colon and rectum. The appendix is not identified and reported surgically absent. Peritoneum: There is a moderate volume of pelvic ascites. No intraperitoneal free air is clearly identified. As noted above, there is gas within the perihepatic fluid collection. Gas and fluid is present within the umbilical hernia. There is also ascitic fluid containing supra umbilical hernia. Lymphadenopathy: A mildly enlarged upper abdominal lymph node on image #189 measures 1.5 cm. Pelvic viscera: The prostate gland is enlarged and heterogeneous noting median lobe hypertrophy. The bladder is distended but otherwise normal in appearance. There is evidence of previous left inguinal herniorrhaphy. A small fat- containing hernia is seen on the right. Skeletal structures: The skeletal structures are osteopenic. Mild to moderate lumbosacral spondylosis is noted. No lytic or blastic lesions are seen. There are healed right-sided rib fractures. Soft tissues: There is body wall edema. IMPRESSION: 1. Significantly suboptimal examination without oral and IV contrast. 2. Postoperative changes consistent with previous Whipple procedure. 3. There is a large crescentic fluid collection along the right lobe of liver as detailed above which measures up to 22 cm. This scallops the hepatic surface contour, and is either subcapsular or perihepatic in location. This demonstrate a thick wall and contains small foci of gas. This is highly concerning for infection/abscess. 4. The perihepatic fluid collection communicates with a moderate volume of abdominopelvic ascites. 5. An infiltrative mass lesion is again seen in the expected location of the pancreatic head and a stent is noted within the pancreatic duct. 6. Irregular pulmonary nodules likely represent metastatic disease. 7. Question diffuse colonic wall thickening. Correlate clinically for evidence of a nonspecific proctocolitis. 8. Additional findings as above. ECG Additional Comments: Sinus tachycardia with Fusion complexes Possible Left atrial enlargement Left axis deviation Low voltage QRS Right bundle branch block Inferior infarct (cited on or before 08-DEC-2018) Abnormal ECG When compared with ECG of 09-DEC-19. Code Status & VTE Plan Code Status CODE: FULL VTE prophylaxis- heparin 5000 subq TID, SCD VTE Prophylaxis Plan VTE Prophylaxis will be ordered: Yes Supervising Physician Co-Signing Physician Notes I personally saw and examined the patient. I verified all chua points and agree with Akhil FANG with the following exceptions and/or additions: 70-year-old male with pancreatic cancer who presents to the ER with early satiety, nausea, decreased appetite and poor oral intake. O/E sinus tract with air coming out adjacent to umbilicus without significant surrounding erythema. Indurated area noted as above to right lateral aspects of umbilicus which is nonfluctuant. A&P Liver abscess versus spontaneous bacterial peritonitis with abscess formation, meets SIRS criteria for sepsis, - Rx Zosyn pending abscess drainage and blood culture results. Consider ID consult. Consult his oncologist. PG Care Time/CCT Total # of Minutes Spent Total Time Spent with Patient: Total time spent is greater than 50% in coordination of care (as documented) at patient's floor/unit and/or counseling patient: Coding Level of Care Code 62749 Initial Inpt Care Lvl 3 Diagnoses Sepsis A41.9; R65.20 Sepsis acute organ dysfunction status: with acute organ dysfunction Sepsis type: sepsis due to unspecified organism Severe sepsis acute organ dysfunction type: unspecified Severe sepsis shock status: without septic shock HEMANT (acute kidney injury) N17.9 Primary pancreatic adenocarcinoma C25.9 Diabetes mellitus E11.40 Diabetes mellitus complication detail: with unspecified neuropathy Diabetes mellitus complication status: with neurologic complications Diabetes mellitus ferry terminal agent insulin use: without ferry terminal agent use Diabetes mellitus type: type 2 Hypertension I10 Hypertension type: essential hypertension Ascites R18.8 Ascites type: other type Venous thrombosis I82.90 Chronic low back pain M54.5; G89.29 Back pain laterality: midline Sciatica presence: without sciatica (1) Ascites Ascites type: other type Qualified Code(s): R18.8 - Other ascites (2) Diabetes mellitus Diabetes mellitus complication detail: with unspecified neuropathy Diabetes mellitus complication status: with neurologic complications Diabetes mellitus ferry terminal agent insulin use: without ferry terminal agent use Diabetes mellitus type: type 2 Qualified Code(s): E11.40 - Type 2 diabetes mellitus with diabetic neuropathy, unspecified (3) Chronic low back pain Back pain laterality: midline Sciatica presence: without sciatica Qualified Code(s): M54.5 - Low back pain; G89.29 - Other chronic pain (4) Sepsis Sepsis acute organ dysfunction status: with acute organ dysfunction Sepsis type: sepsis due to unspecified organism Severe sepsis acute organ dysfunction type: unspecified Severe sepsis shock status: without septic shock Qualified Code(s): A41.9 - Sepsis, unspecified organism; R65.20 - Severe sepsis without septic shock (5) Hypertension Hypertension type: essential hypertension Qualified Code(s): I10 - Essential (primary) hypertension
[2020-05-30] MEDS ORDERED: PIPERACILLIN/TAZOBACTAM 3.375 GM in DEXTROSE 5% 100 ML IV SCH (15:00)
[2020-05-30] MEDS ORDERED: ONDANSETRON INJ 2 MG/ML 2 ML VIAL IV PRN (15:18)
[2020-05-30] MEDS ORDERED: ACETAMINOPHEN 325 MG TAB PO PRN (15:18)
[2020-05-30] MEDS: NORMOSOL-R 1,000 ML IV SCH ×2 (15:30→18:22)
[2020-05-30] MEDS ORDERED: VANCOMYCIN CONSULT ACTIVE PRN (15:40)
[2020-05-30] MEDS ORDERED: VANCOMYCIN HCL 1,000 MG/270 ML BAG IV STA (15:40)
[2020-05-30] MEDS ORDERED: VANCOMYCIN HCL 1,750 MG in SODIUM CHLORIDE 0.9% 500 ML IV STA (15:42)
--- NOTE | 2020-05-30 15:44 | CT Scan Report ---
CT SCAN OF THE ABDOMEN AND PELVIS WITHOUT IV CONTRAST CLINICAL HISTORY: Cellulitis. Generalized abdominal pain. Pancreatic cancer. Increasing weakness. COMPARISON STUDY: Abdominal CT dated 12/06/2019. TECHNIQUE: CT scan of the abdomen and pelvis is performed from the lung bases to the proximal femora. Images are reviewed in the axial, sagittal, and coronal planes. IV contrast was not administered for this examination. Note that the examination was performed in suboptimal fashion without oral and IV contrast. A dose lowering technique was utilized adhering to the principles of ALARA. CT DOSE: 668.13 mGy.cm FINDINGS: Lung bases: The heart is normal in size noting trace pericardial effusion. The coronary arteries and mitral annulus are densely calcified. There is bibasilar scarring/atelectasis. No airspace consolidat ion is seen typical for pneumonia and there is no pleural effusion. Irregular bibasilar pulmonary nod ules are again noted. A real estate representative 1.9 cm irregular nodule in the right middle lobe is seen on im age #4, a 0.7 cm right middle lobe nodule is seen on image #18, and a 1.2 cm pleural-based nodules at the left lung base on image #51. Liver: There is a large crescentic fluid collection along the right lobe of liver. This scallops the right lobe of the liver, and is either subcapsular or perihepatic in location. This measures approxim ately 22 x 19 x 8 cm, and this communicates with abdominal ascites inferior to the liver. There are f oci of gas within this fluid seen on axial image #130. The unenhanced liver is heterogeneous and demo nstrates diffusely diminished attenuation consistent with hepatic steatosis. Pneumobilia is noted in the left lobe. There is no intrahepatic biliary ductal dilatation. Gallbladder: Surgically absent noting clips in the gallbladder fossa. Spleen: Normal in size and attenuation. Pancreas: The unenhanced pancreas is atrophic. The pancreatic head is surgically absent. A stent is n oted in the pancreatic duct. A 4 cm infiltrative lesion is again seen in the expected location of the pancreatic head on image #183. This is not well assessed without IV contrast. Adrenal glands: Unremarkable. Kidneys: The unenhanced kidneys are atrophic and without hydronephrosis. There is a punctate nonobstr ucting calculus in the left upper pole. A 1.5 cm cyst is again noted in the right kidney. Abdominal vasculature: The abdominal aorta is normal in course and caliber noting moderate to advance d atherosclerotic calcification. Bowel: The duodenum is surgically absent and there is a gastrojejunostomy consistent with previous Wh ipple procedure. Matted loops of bowel in the issa hepatis are related to pancreaticojejunostomy and hepaticojejunostomy. There is no bowel obstruction. Question mild diffuse wall thickening of the col on and rectum. The appendix is not identified and reported surgically absent. Peritoneum: There is a moderate volume of pelvic ascites. No intraperitoneal free air is clearly iden tified. As noted above, there is gas within the perihepatic fluid collection. Gas and fluid is presen t within the umbilical hernia. There is also ascitic fluid containing supra umbilical hernia. Lymphadenopathy: A mildly enlarged upper abdominal lymph node on image #189 measures 1.5 cm. Pelvic viscera: The prostate gland is enlarged and heterogeneous noting median lobe hypertrophy. The bladder is distended but otherwise normal in appearance. There is evidence of previous left inguinal herniorrhaphy. A small fat-containing hernia is seen on the right. Skeletal structures: The skeletal structures are osteopenic. Mild to moderate lumbosacral spondylosis is noted. No lytic or blastic lesions are seen. There are healed right-sided rib fractures. Soft tissues: There is body wall edema. IMPRESSION: 1. Significantly suboptimal examination without oral and IV contrast. 2. Postoperative changes consistent with previous Whipple procedure. 3. There is a large crescentic fluid collection along the right lobe of liver as detailed above which measures up to 22 cm. This scallops the hepatic surface contour, and is either subcapsular or perihe patic in location. This demonstrate a thick wall and contains small foci of gas. This is highly ana rning for infection/abscess. 4. The perihepatic fluid collection communicates with a moderate volume of abdominopelvic ascites. 5. An infiltrative mass lesion is again seen in the expected location of the pancreatic head and a st ent is noted within the pancreatic duct. 6. Irregular pulmonary nodules likely represent metastatic disease. 7. Question diffuse colonic wall thickening. Correlate clinically for evidence of a nonspecific proct ocolitis. 8. Additional findings as above. ACT 112: Negative or not required by law. Electronically signed by: Rocky Hinds M.D. 05/30/2020 3:42 PM
[2020-05-30] MEDS ORDERED: LIPASE PROTEASE AMYLASE PO SCH (20:31)
[2020-05-30] MEDS ORDERED: GLUCOSE 10 TABS/TUBE PO PRN (20:31)
[2020-05-30] MEDS ORDERED: DEXTROSE 50% 50 ML SYRINGE IV PRN (20:31)
[2020-05-30] MEDS ORDERED: GLUCAGON FOR INJ 1 MG VIAL SQ PRN (20:31)
[2020-05-30] MEDS ORDERED: [UNRECOGNIZED DRUG - OTHER] PO SCH (20:31)
[2020-05-30] MEDS ORDERED: GLUCOSE 40% GEL 15 GM TUBE PO PRN (20:31)
[2020-05-30] MEDS ORDERED: CARBOHYDRATES FOR HYPOGLYCEMIA PO PRN (20:31)
[2020-05-30] MEDS: INSULIN ASPART 100 UNITS/ML 3 ML PEN SC SCH (21:13)
[2020-05-30] MEDS: HEPARIN SOD 5,000 UNIT/0.5 ML VIAL SQ SCH (21:33)
[2020-05-30] MEDS: POTASSIUM CHLORIDE CRTAB 20 MEQ TABCR PO SCH (21:34)
[2020-05-30] MEDS: OLANZAPINE 2.5 MG TAB PO SCH (22:51)
[2020-05-31] MEDS: PIPERACILLIN/TAZOBACTAM 3.375 GM in DEXTROSE 5% 100 ML IV SCH ×4 (00:19→23:16)
[2020-05-31] MEDS: NORMOSOL-R 1,000 ML IV SCH ×3 (00:25→20:41)
[2020-05-31] MEDS: HYDROCODONE/ACETAMOPHEN 5/325MG TAB PO PRN (05:33)
[2020-05-31] MEDS: HEPARIN SOD 5,000 UNIT/0.5 ML VIAL SQ SCH ×3 (05:42→20:47)
[2020-05-31] MEDS ORDERED: VANCOMYCIN HCL 1,000 MG in SODIUM CHLORIDE 0.9% 250 ML IV SCH (06:00)
[2020-05-31] MEDS: INSULIN ASPART 100 UNITS/ML 3 ML PEN SC SCH ×4 (07:57→21:02)
[2020-05-31] MEDS: POTASSIUM CHLORIDE CRTAB 20 MEQ TABCR PO SCH ×4 (08:13→20:42)
[2020-05-31] MEDS: HYDROmorphone INJ 0.5 MG/0.5 ML SYR IV PRN ×2 (08:15→14:51)
[2020-05-31 08:29] LABS: Estimated Average Glucose 134 mg/dl; Hemoglobin A1C 6.3 % (4.5-5.6)
[2020-05-31 08:34] LABS: INR 1.8 (0.9-1.1); Prothrombin Time 17.3 Seconds (9.0-12.0)
[2020-05-31 08:41] LABS: Hematocrit (blood only) 26.3 % (42-52); Hemoglobin 8.9 g/dL (14.0-18.0); Mean Corpuscular Hgb Conc 33.8 g/dL (32-36); Mean Corpuscular Volume 79.7 fL (80-100); Mean Platelet Volume 9.3 fL (7.4-10.4); Platelet Count 279 K/uL (130-400); RDW Coefficient of Variation 20.8 % (11.5-14.5); RDW Standard Deviation 60.2 fL (36.4-46.3); White Blood Count 12.29 K/uL (4.8-10.8)
[2020-05-31 08:57] LABS: BUN Creatinine Ratio 34.5 (10-20); Est GFR (African American) 115.9; Potassium 4.1 mmol/L (3.5-5.1)
[2020-05-31 09:11] LABS: Anisocytosis Present; Eosinophils # (auto) 0.01 K/uL (0-0.5); Eosinophils % (auto) 0.1 %; Immature Granulocytes # (auto) 0.06 K/uL (0.00-0.02); Immature Granulocytes % (auto) 0.5 %; Lymphocytes # (auto) 0.85 K/uL (1.2-3.4); Lymphocytes % (auto) 6.9 %; Monocytes # (auto) 1.07 K/uL (0.11-0.59); Monocytes % (auto) 8.7 %; Neutrophils % (auto) 83.8 %
--- NOTE | 2020-05-31 09:13 | Hospitalist Progress Note ---
Date of Service May 31, 2020 Assessment & Plan (1) Primary pancreatic adenocarcinoma: Follows with cancer care partnership with Lexi Corona PA-C and Dr. Bhakta Metastatic disease Currently undergoing salvage chemotherapy Per oncology note, family has no current discussion about stopping salvage therapy but there was discussion yesterday about the patient going home on home hospice At this time, we will treat peritoneal infection (2) Ascites: Sent to radiology for paracentesis Patient with edgar pus Drain left in place Call from laboratory -white cells present but unable to get cell count and differential Await culture and sensitivity (3) Sepsis: Patient with peritoneal infection draining edgar pus Continue Zosyn and vancomycin pending culture and sensitivity from fluid Blood pressure in the 1 teens Lactic acid now 2.0 Continue to follow for sepsis (4) Chronic low back pain: Was scheduled for block. This clearly cannot be done while patient is septic Consider palliative care consult Continue analgesia as needed Pain seems generally controlled at the time of my examination (5) Weakness: Secondary to metastatic pancreatic cancer, sepsis, malnourishment PT/OT Continue treat underlying issues (6) Iron deficiency anemia: Hemoglobin 8.9 Check iron studies Follow serial labs Admission and Anticipated Discharge Date Admission Date: May 30, 2020 Subjective Attending: Dr. Correa Is a 70-year-old male that presented with apparent sepsis. There is a question of abdominal abscess. Patient was started on Zosyn as well as vancomycin. Patient is currently scheduled for drainage of the abscess with radiology this morning. Patient does have pancreatic adenocarcinoma. Patient's family would like to discuss management and goals of patient after abscess drainage today. Patient seen at bedside. He was awake and alert but not really able to cooperate or respond. He has good airway control. He can move all limbs. He appears ill. Review of Systems Review of Systems: All systems reviewed & are unremarkable except as noted in Subjective and Other Unable to obtain ROS due to confusion from acute illness Physical Exam Physical Exam: GENERAL : No acute distress EYES: No icterus, gaze conjugate NOSE: No evidence of epistaxis MOUTH: No lesions or candidiasis NECK: Supple LUNGS: CTA B/L, no wheezes, rales or rhonchi HEART: Regular, rate controlled ABDOMEN: Soft, NT, ND, BS Present. No significant pain with deep palpation. A drain is in place and is draining edgar pus EXTREMITIES: No LE edema, pedal pulses intact NEURO: Awake and alert. Moves all 4 extremities. Responds to verbal command but does not follow simple commands. Results & Data Results & Data ([facility]) Vital Signs (Past 12 Hours) Vital Signs Temp Pulse Pulse Resp BP BP Pulse Ox 05/31/20 08:23 101 H 93/55 L 05/31/20 07:38 36.7 C 101 H 18 87/51 L 95 05/31/20 03:06 36.8 C 118 H 20 114/69 96 05/30/20 23:38 36.8 C 98 H 20 144/82 H 95 Laboratory Results 05/31/20 08:04 05/31/20 08:04 PG Care Time/CCT Total # of Minutes Spent Total Time Spent with Patient: Total time spent is greater than 50% in coordination of care (as documented) at patient's floor/unit and/or counseling p atient: Coding Level of Care Code 01368 Subseq Hosp Care Lvl 2 Diagnoses Primary pancreatic adenocarcinoma C25.9 Ascites R18.8 Ascites type: other type Sepsis A41.9; R65.20 Sepsis type: sepsis due to unspecified organism Sepsis acute organ dysfunction status: with acute organ dysfunction Severe sepsis acute organ dysfunction type: unspecified Severe sepsis shock status: without septic shock Chronic low back pain M54.5; G89.29 Back pain laterality: midline Sciatica presence: without sciatica Weakness R53.1 Iron deficiency anemia D50.9 (1) Ascites Ascites type: other type Qualified Code(s): R18.8 - Other ascites (2) Sepsis Sepsis type: sepsis due to unspecified organism Sepsis acute organ dysfunction status: with acute organ dysfunction Severe sepsis acute organ dysfunction type: unspecified Severe sepsis shock status: without septic shock Qualified Code(s): A41.9 - Sepsis, unspecified organism; R65.20 - Severe sepsis without septic shock (3) Chronic low back pain Back pain laterality: midline Sciatica presence: without sciatica Qualified Code(s): M54.5 - Low back pain; G89.29 - Other chronic pain
--- NOTE | 2020-05-31 09:47 | Consultation Report ---
DATE OF CONSULTATION: 05/31/2020 REASON FOR CONSULTATION: Metastatic pancreatic cancer with underlying suspicion of peritonitis. HISTORY OF PRESENT ILLNESS: The patient is a longstanding patient of [facility], currently under our care for metastatic pancreatic cancer. This gentleman had previously undergone 4 cycles of Abraxane Whipple procedure and more recently was started on Abraxane and gemcitabine, which extended into early April of 2020. This gentleman obviously has been in slow, steady decline and now has developed intermittent ascites. He had undergone CT scan of the abdomen and pelvis last week revealing a moderate volume ascites. Paracentesis was performed yielding 2 liters of fluid. He originally felt better after fluid removal. However, over the past couple of days, developed nausea with early satiety ultimately decreasing his oral intake. He denied fevers, chills or abdominal discomfort; however, does claim generalized weakness. The patient had full radiographic and laboratory workup in the Emergency Room again revealing a moderate volume ascites and specifically a large crescenteric fluid collection along the right lobe of the liver measuring up to 22 cm this scalps the hepatic surface contour and is either subcapsular or perihepatic in location. There is a thick wall present containing a small foci of gas concerning for infection/abscess. Chest x-ray also confirms pulmonary metastatic disease. Laboratories done on 05/25/2020 suggests that this gentleman had been responding to current therapy with a decrease of CA 19-9 0.62, down to 84. The patient is largely followed by Lexi Corona our police magistrate and we will discuss his case further with her. While the patient's chart shows that his code status is DNR/DNI. This gentleman is not interested in abandoning therapy at the present time. PAST MEDICAL HISTORY: Significant for type 2 diabetes mellitus, dyslipidemia, metastatic pancreatic cancer and a history of sepsis, treated at [facility] in 11/2018. PAST SURGICAL HISTORY: Includes biliary duct stent placement, ERCP, hernia repair, open reduction and internal fixation of the right arm, Whipple surgery in 2017. MEDICATIONS: Include potassium chloride 20 mEq p.o. t.i.d., metformin 1000 mg p.o. daily, Creon 1 capsule p.o. t.i.d., metformin 500 mg p.o. daily, furosemide 40 mg p.o. daily, gabapentin 300 mg p.o. t.i.d., hydrocodone/acetaminophen 1 tablet p.o. q. 6 hours p.r.n. ALLERGIES: No known drug allergies. FAMILY HISTORY: Brother and mother both suffered with diabetes mellitus. Father suffered with myocardial infarction, coronary artery disease, no neoplastic family history. SOCIAL HISTORY: The patient resides with his spouse. He is retired, is a reformed smoker, nondrinker, non-illicit drug user. REVIEW OF SYSTEMS: GENERAL: Negative for fevers, chills or sweats. Positive for anorexia, poor p.o. intake. SKIN: No rashes or lesions. No history of dermatoses. HEENT: Denies headaches, lightheadedness or dizziness. No hearing or visual deficits. No sinus symptoms, sore throat or dysphagia. LYMPH: No history of lymphoproliferative disease. CARDIAC: No history of coronary artery disease, no angina or palpitations. PULMONARY: Negative for COPD. No shortness of breath, dyspnea or orthopnea. No cough or hemoptysis. GASTROINTESTINAL: Positive for early satiety. Positive for increasing ascites and abdominal girth. No abdominal pain. No current nausea and vomiting. GENITOURINARY: No history of prostate disease. No hematuria, dysuria or urinary incontinence. MUSCULOSKELETAL: Positive for generalized weakness. No arthralgias. ENDOCRINE: Positive for type 2 diabetes mellitus. NEUROLOGIC: Negative for seizure, stroke, or migraine headache. HEMATOLOGIC: Positive for leukocytosis. PHYSICAL EXAMINATION: GENERAL: Ill-appearing 70-year-old gentleman, awake, alert and appropriate, in no acute distress. VITAL SIGNS: Temperature 36.8, pulse 118, respiratory rate 20, blood pressure 114/69. SKIN: Warm, dry, noncyanotic without petechia, rash or ecchymosis. HEENT: Head is atraumatic, normocephalic. Eyes: PERRLA, EOMI. Nares patent without rhinorrhea or discharge. Throat clear. Tongue midline. Mucous membranes are moist. No buccal lesions or ulcerations. NECK: Supple. HEART: Tachy, but regular. LUNGS: Diminished breath sounds. No rales or rhonchi appreciated. ABDOMEN: Significant abdominal distention tense shifting dullness and positive fluid wave. EXTREMITIES: Trace peripheral edema bilateral lower extremities. Strength and pulses are equal in all 4 quadrants. NEUROLOGICAL: He is awake, alert and oriented x3. Cranial nerves are intact. LABORATORY DATA: WBC count 17,750, hemoglobin 10.2, platelet count 415,000, absolute neutrophil count 14,680. Sodium 136, potassium 3.8, chloride 107, carbon dioxide 17, BUN 28, total bilirubin 1.4, alkaline phosphatase 253. C-reactive protein 14.8, albumin 2.1. Procalcitonin 2.52. TSH 5.270. IMPRESSION: 1. Suspect peritonitis/sepsis. 2. Metastatic pancreatic cancer. 3. Type 2 diabetes mellitus. 4. Hypoalbuminemia. 5. Ascites. 6. Hypertension. PLAN: The patient is a pleasant, somewhat unfortunate 70-year-old gentleman well known to [facility], currently under our care with a metastatic pancreatic cancer. His last chemotherapy was administered in early April consisting of gemcitabine and Abraxane. While his tumor markers have been heading downward, obviously, this ascites has been a more recent issue. He had a paracentesis a week ago, yielding 2 liters of fluid. Cytology and cultures should be followed up. Radiographic studies are somewhat disturbing indicating he may have an underlying or brewing peritonitis. Agree with empiric broad-spectrum antibiotics to cover abdominal organisms. He obviously is in no shape to resume any form of salvage chemotherapy. Considering this gentleman has been battling pancreatic cancer for going on 4 years now has definitely outlived current survival estimates. That said, the patient has given no indication that he wants to stop salvage therapy at this juncture. Thus, he desires to be managed medically in optimal fashion. When and if he recovers, we will reconvene with patient and his family to discuss therapeutic plans moving forward. Again, the patient has been followed extensively by the physician extenders and will speak to Lexi Corona regarding his care moving forward. If you have any questions or concerns, please feel free to contact me at any time.
--- NOTE | 2020-05-31 10:48 | Ultrasound Report ---
US guide abscess drain HISTORY: Right subdiaphragmatic fluid collection. Probable abscess. COMPARISON STUDY: Abdomen and pelvis CT 05/30/2020. PROCEDURE: The risks, benefits, and alternatives to an ultrasound-guided percutaneous drainage was di scussed with the patient. Written informed consent was obtained. Preliminary imaging was performed wi ultrasound to determine a safe needle entry site for the right subdiaphragmatic fluid collection/a bscess. The right upper quadrant was prepped and draped in usual sterile fashion. 1% lidocaine was us ed for local anesthesia. A skin neck was made within the right upper quadrant. Using trocar technique , this was followed by placement of an 8 [place] percutaneous drainage catheter into the subdiaphragma tic fluid collection under ultrasound guidance. The percutaneous drainage catheter was looped within the fluid collection and connected to a drainage bag. A total of 2.5 L of pus was removed. Post proce dure imaging demonstrated near-complete removal of the abscess. No immediate complications. The patie nt was sent to the floor in stable condition. IMPRESSION: Successful ultrasound-guided percutaneous drainage of the right subdiaphragmatic abscess with removal of 2.5 L of pus. ACT 112: Negative or not required by law. Electronically signed by: Reinier Little M.D. 05/31/2020 10:47 AM
--- NOTE | 2020-05-31 13:20 | Pharmacy Report ---
Pharmacy Abx Dose Short Note - Date of Service May 31, 2020 - Assessment & Plan Assessment 70 year old admitted with possible sepsis/abdominal abscess. Started on vancomycin and zosyn. Blood cultures pending. Plan Vancomycin * Received loading dose of vancomycin 1750 (~22 mg/kg) dose last evening * Started on vancomycin 1 gm iv q 12 hr - adjusted this AM for improvement in renal function to q8 hr dosing - per vancomycin AUC nomogram * Estimated kinetics: t1/2~7 hrs, ke~0.09, CrCl ~108 ml/min * Plan to order level tomorrow if still continued Zosyn * 3.375 gm iv q 8 hr - appropriate for CrCl >20 Pharmacy will continue to follow and will adjust dose/frequency as necessary. Thank you.
[2020-05-31] MEDS: VANCOMYCIN HCL 1,000 MG in SODIUM CHLORIDE 0.9% 250 ML IV SCH ×2 (14:44→20:47)
[2020-05-31] MEDS: chlorproMAZINE HCL 25 MG TAB PO SCH ×2 (14:44→23:16)
[2020-05-31 15:16] LABS: Albumin Peritoneal Fluid < 0.6 g/dl; Total Protein Peritoneal Fluid 1.2 g/dl
--- NOTE | 2020-05-31 20:09 | Electrocardiogram Report ---
Test Reason : Blood Pressure : / mmHG Vent. Rate : 111 BPM Atrial Rate : 111 BPM P-R Int : 140 ms QRS Dur : 116 ms QT Int : 374 ms P-R-T Axes : 031 -42 006 degrees QTc Int : 508 ms Sinus tachycardia Possible Left atrial enlargement Left axis deviation Low voltage QRS Right bundle branch block Inferior infarct (cited on or before 08-DEC-2018) Abnormal ECG When compared with ECG of 08-DEC-2018 09:48, Inverted T waves have replaced nonspecific T wave abnormality in Anterior leads Confirmed by Juanjo Marie ([id number]) on 05/31/2020 8:09:21 PM Referred By: REFERRED SELF Confirmed By:Juanjo Marie
[2020-05-31] MEDS: OLANZAPINE 2.5 MG TAB PO SCH (20:41)
[2020-05-31 20:58] LABS: Appearance Peritoneal Fluid TURBID; Color Peritoneal Fluid PALE YELLOW
[2020-05-31] MEDS ORDERED: HEPARIN 100 UNIT/ML 5ML FLUSH FLUSH PRN (22:50)
[2020-06-01] MEDS: NORMOSOL-R 1,000 ML IV SCH ×2 (06:16→15:51)
[2020-06-01] MEDS: VANCOMYCIN HCL 1,000 MG in SODIUM CHLORIDE 0.9% 250 ML IV SCH ×2 (06:16→15:32)
[2020-06-01] MEDS: HYDROmorphone INJ 0.5 MG/0.5 ML SYR IV PRN (06:16)
[2020-06-01] MEDS: chlorproMAZINE HCL 25 MG TAB PO SCH ×2 (06:17→15:31)
[2020-06-01] MEDS: HEPARIN SOD 5,000 UNIT/0.5 ML VIAL SQ SCH ×2 (06:17→13:28)
[2020-06-01 06:45] LABS: C Reactive Protein 15.2 mg/dl (0-0.29); Creatinine Clr Calc Pharmacy 117.2 ml/min; Est GFR (African American) 120.6
[2020-06-01] MEDS: PIPERACILLIN/TAZOBACTAM 3.375 GM in DEXTROSE 5% 100 ML IV SCH ×2 (07:40→15:49)
[2020-06-01] MEDS: POTASSIUM CHLORIDE CRTAB 20 MEQ TABCR PO SCH ×2 (07:40→13:27)
[2020-06-01] MEDS: INSULIN ASPART 100 UNITS/ML 3 ML PEN SC SCH ×3 (07:46→17:43)
[2020-06-01] MEDS: HYDROCODONE/ACETAMOPHEN 5/325MG TAB PO PRN (13:27)
[2020-06-01] MEDS ORDERED: VANCOMYCIN TROUGH ONE (13:30)
--- NOTE | 2020-06-01 14:25 | Palliative Care Consultation ---
Date of Consultation June 01, 2020 Assessment & Plan (1) Palliative care encounter: I spoke with Mrs. Agustin on the phone. She tells me that Chance has said that he is done with treatment and does not want any additional infusions. She understands that he is approaching his dying time and her wish is for him to be at home where family can be with him. They have a room set up for his care and equipment that they need except for a hospital bed. She is comfortable with caring for him at home and has family support, including a son who lives just a few houses away. We discussed his current antibiotic treatment. His prognosis is poor and he is likely to within days. She would prefer to stop treatment so that he can be at home for his . Will arrange for hospice care at home and hopeful discharge later today. I spoke with Dr. Correa and case management to facilitate discharge. (2) Carcinoma of head of pancreas: (3) Metastasis from pancreatic cancer: History of Present Illness Reason for Consultation: goals of care Requesting Physician: Dr. Correa Attending Physician: Chris Correa DO History of Present Illness 70 yo gentleman with four year history of pancreatic cancer. He initially had Whipple procedure and treatment with abraxane. He had been receiving cancer treatment until recently and has had significant functional decline. Per his , he has been declining since [place] time. He now has metastases to the lung and ascites. He had paracentesis for 2 L of fluid on 05/25/20. He has been admitted after presenting with nausea and anorexia. He was noted to have induration at the site of his previous paracentesis and CT of abdomen indicated abscess. He did have guided aspiration of more than 2L of purulent fluid and continues to have purulent drainage. He is weak with some mild confusion but denies pain or discomfort and is able to answer questions. He tells me that he just wants to go home. Allergies Allergy/AdvReac Type Severity Reaction Status Date / Time No Known Drug Allergies Allergy Unknown Verified 05/30/20 12:03 Home Medications Medication Instructions Recorded Confirmed Type potassium chloride 20 meq PO TID 11/16/19 05/30/20 History metformin 1,000 mg tablet 1,000 mg PO QAM #90 tab 02/14/20 05/30/20 Rx padcuh-[id number]-[id number] 1 cap PO TIDM #60 cap 02/28/20 05/30/20 Rx 3,000-9,500-15,000 unit capsule,delayed releas metformin 500 mg tablet 500 mg PO QPM #15 tab 02/28/20 05/30/20 Rx furosemide 40 mg tablet 40 mg PO DAILY 05/29/20 05/30/20 History gabapentin 300 mg PO TID 05/30/20 05/30/20 History hydrocodone-acetaminophen 1 tab PO Q6H PRN 05/30/20 05/30/20 History Patient History Medical History Cancer related pain Diabetes mellitus, type 2 NIDDM Dyslipidemia pt denies Elevated INR Encounter for pre-operative examination History of pancreatic cancer DX 2017 - S/P CHEMO, SURGERY Metastasis Port-A-Cath in place (11/15/18) Insertion of Mediport Right Cephalic Vein Dr. Galdamez 11/15/18 Primary pancreatic adenocarcinoma Sepsis treated at [facility] 11/2018 Surgical History History of biliary duct stent placement REMOVED History of ERCP History of hernia repair History of open reduction and internal fixation (ORIF) procedure RIGHT ARM History of surgery WHIPPLE SURGERY 2017 History of vascular access device INSERTION AND REMOVAL S/P hardware removal right arm Family History Brother Family history of diabetes mellitus Mother Family history of diabetes mellitus Father Myocardial infarction Other No family history of adverse response to anesthesia Denies family history of Ovarian cancer Prostate cancer Breast cancer Colorectal cancer Social History Smoking Status: Former smoker Second Hand Exposure: No; Hx Alcohol Use: No Hx Substance Use: No Preferred Language: Kiswahili Communication Ability: Impaired Repairer Veneer Sheet Required: No Beliefs That Will Affect Care: None marital status: Current Living Situation: Spouse current occupational status: retired Other Information That Helps Us Care for You: No Feels Safe at Home: Yes Safety Concerns: Feels Safe At This Time caffeine: No Dental Care, Regularly: No Physical Activity Frequency: Daily Seatbelt Use: always Sunscreen Use: No Assistive Devices: None Review of Systems Review of Systems: [place] Symptom Assessment Scale Pain 0/3 Nausea 0/3 Anorexia 3/3 Dyspnea 0/3 Drowsiness 2/3 Palliative Performance Score 20% Physical Exam Constitutional: + ill appearing ENMT: Mouth: + dry oral mucous membranes Respiratory: normal respiratory effort; no labored breathing Gastrointestinal (Abdomen): Inspection/Auscultation: + abdomen distended Musculoskeletal: Extremities: + muscle atrophy Results & Data ([facility]) Vital Signs (Past 12 Hours) Vital Signs Temp Pulse Pulse Pulse Resp BP Pulse Ox 06/01/20 11:54 97.7 F 115 H 20 103/59 L 98 06/01/20 07:48 97.9 F 116 H 18 114/70 97 06/01/20 07:45 120 H 06/01/20 03:54 97.3 F L 119 H 20 119/63 96 PG Care Time/CCT Total # of Minutes Spent Total Time Spent with Patient: Total time spent is greater than 50% in coordination of care (as documented) at patient's floor/unit and/or counseling patient: total time spent 60 minutes with more than 50% of time spent on goals of care, hospice, family support, coordination of care Coding Level of Care Code 84322 Inpt Consult Level 3 Diagnoses Palliative care encounter Z51.5 Carcinoma of head of pancreas C25.0 Metastasis from pancreatic cancer C79.9; C25.9
[2020-06-01] MEDS ORDERED: VANCOMYCIN HCL 1,000 MG in SODIUM CHLORIDE 0.9% 250 ML IV SCH (18:00)
--- NOTE | 2020-06-01 18:54 | Discharge Summary ---
Date of Service June 01, 2020 Admission HPI Per Admitting Provider 70 YOM with past medical history of adenocarcinoma pancreatic cancer; with pulmonary metastasis; completed 4 cycles of Abraxane, Whipple procedure, DM II, HLD, chronic low back pain, portal vein thrombosis; had follow up CT scan done last week that showed moderate volume ascites. He then had a Paracentesis performed on the May, where he had 2L fluid removed. He originally felt better after the fluid removal; however over the past few days he had a sensation of early saiety and nausea, which led to decrease appetite and oral intake. He denies any fevers, chills, or abdominal discomfort, just feeling weak. In the EMD the patient had a CXR done, basic labs, blood cultures, urine culture, and ECG performed; he also got 1 dose of Cefepime and 1 Liter of 0.9% saline. The hospitalist team was notified for admission. Upon my evaluation, the patient was resting on his side comfortable and his daughter was present. The patient was mentating well and answering questions appropriately. On physical exam, it was noted that the patient had some localized redness at the paracentesis site, and approximately a 4x6 indurated area under the paracentesis site, it was not fluctuant, it was also noted that at his umbilicus, there was a pinhole sized opening that drained small amount of purulence and then followed by clear fluid. Patient will be admitted for IV antibiotics, CT of the abdomen obtained, and will intravascularly rehydrated. No records of the ascitic fluid being sent from the procedure note, or any samples in microbiology. Admission Exam Per Admitting Provider PHYSICAL EXAM: General: awake, alert, no apparent distress, fragile ill Head: Normocephalic, atraumatic ENT: PERRLA, EOMI, no pharyngeal exudate, mucous membranes moist Neuro: AAO x 3, speech clear and appropriate, strength intact bilaterally 5/5, sensation intact and equal all extremities and dermatomes, no pronator drift Chest: equal rise and fall of the chest, no accessory muscle use, no heaves or thrills, Clear to auscultation, on room air, Cardiac: Regular rate and rhythm, telemetry reviewed, skin warm dry, cap refill <3 seconds, peripheral pulses +2 no JVD, no murmur, (+) 2 edema to bilateral lower extremities GI: Abdomen round, (+) ascitic wave, induration at paracentesis site, purulent drainage at umbilicus, quadrants, soft, nontender to palpation, no rebound, guarding or tenderness : Spontaneously voiding, no pain, no CVA tenderness, Extremities: Normal inspection, no peripheral edema or erythema, calfs nontender to palpation Psych: Normal mood and affect Skin: no rash or erythema Principal Diagnosis Metastatic pancreatic cancer Peritoneal sepsis Discharge Exam GENERAL : Patient appears more comfortable today EYES: Pupils are equal round and reactive to light. Gaze is conjugate NOSE: No evidence of epistaxis MOUTH: No lesions or candidiasis. Mucosa is dry NECK: Supple LUNGS: CTA B/L, no wheezes, rales or rhonchi. Good inspiratory effort today HEART: Regular, tachycardic in the low 100s ABDOMEN: Soft, NT, distended, BS Present but quiet. Peritoneal drain in place and draining edgar pus EXTREMITIES: No LE edema, pedal pulses intact NEURO: Awake and alert. Follows simple commands. Knows his name and date of . Knows he is in the hospital. Discharge Data Allergies Allergy/AdvReac Type Severity Reaction Status Date / Time No Known Drug Allergies Allergy Unknown Verified 05/30/20 12:03 Consultations 05/30/20 12:42 ED Decision to Admit Stat 05/30/20 20:31 Consult Hematology Routine 05/31/20 11:18 Consult Palliative Care Routine Ordered Studies 05/30/20 14:41 CT abd pelvis wo con Urgent CT SCAN OF THE ABDOMEN AND PELVIS WITHOUT IV CONTRAST CLINICAL HISTORY: Cellulitis. Generalized abdominal pain. Pancreatic cancer. Increasing weakness. COMPARISON STUDY: Abdominal CT dated 12/06/2019. TECHNIQUE: CT scan of the abdomen and pelvis is performed from the lung bases to the proximal femora. Images are reviewed in the axial, sagittal, and coronal planes. IV contrast was not administered for this examination. Note that the examination was performed in suboptimal fashion without oral and IV contrast. A dose lowering technique was utilized adhering to the principles of ALARA. CT DOSE: 668.13 mGy.cm FINDINGS: Lung bases: The heart is normal in size noting trace pericardial effusion. The coronary arteries and mitral annulus are densely calcified. There is bibasilar scarring/atelectasis. No airspace consolidation is seen typical for pneumonia and there is no pleural effusion. Irregular bibasilar pulmonary nodules are a gain noted. A termite control representative 1.9 cm irregular nodule in the right middle lobe is seen on image #4, a 0.7 cm right middle lobe nodule is seen on image #18, and a 1.2 cm pleural-based nodules at the left lung base on image #51. Liver: There is a large crescentic fluid collection along the right lobe of liver. This scallops the right lobe of the liver, and is either subcapsular or perihepatic in location. This measures approximately 22 x 19 x 8 cm, and this communicates with abdominal ascites inferior to the liver. There are foci of gas within this fluid seen on axial image #130. The unenhanced liver is heterogeneous and demonstrates diffusely diminished attenuation consistent with hepatic steatosis. Pneumobilia is noted in the left lobe. There is no intrahepatic biliary ductal dilatation. Gallbladder: Surgically absent noting clips in the gallbladder fossa. Spleen: Normal in size and attenuation. Pancreas: The unenhanced pancreas is atrophic. The pancreatic head is surgically absent. A stent is noted in the pancreatic duct. A 4 cm infiltrative lesion is again seen in the expected location of the pancreatic head on image #183. This is not well assessed without IV contrast. Adrenal glands: Unremarkable. Kidneys: The unenhanced kidneys are atrophic and without hydronephrosis. There is a punctate nonobstructing calculus in the left upper pole. A 1.5 cm cyst is again noted in the right kidney. Abdominal vasculature: The abdominal aorta is normal in course and caliber noting moderate to advanced atherosclerotic calcification. Bowel: The duodenum is surgically absent and there is a gastrojejunostomy consistent with previous Whipple procedure. Matted loops of bowel in the issa hepatis are related to pancreaticojejunostomy and hepaticojejunostomy. There is no bowel obstruction. Question mild diffuse wall thickening of the colon and rectum. The appendix is not identified and reported surgically absent. Peritoneum: There is a moderate volume of pelvic ascites. No intraperitoneal free air is clearly identified. As noted above, there is gas within the perihepatic fluid collection. Gas and fluid is present within the umbilical hernia. There is also ascitic fluid containing supra umbilical hernia. Lymphadenopathy: A mildly enlarged upper abdominal lymph node on image #189 measures 1.5 cm. Pelvic viscera: The prostate gland is enlarged and heterogeneous noting median lobe hypertrophy. The bladder is distended but otherwise normal in appearance. There is evidence of previous left inguinal herniorrhaphy. A small fat- containing hernia is seen on the right. Skeletal structures: The skeletal structures are osteopenic. Mild to moderate lumbosacral spondylosis is noted. No lytic or blastic lesions are seen. There are healed right-sided rib fractures. Soft tissues: There is body wall edema. IMPRESSION: 1. Significantly suboptimal examination without oral and IV contrast. 2. Postoperative changes consistent with previous Whipple procedure. 3. There is a large crescentic fluid collection along the right lobe of liver as detailed above which measures up to 22 cm. This scallops the hepatic surface contour, and is either subcapsular or perihepatic in location. This demonstrate a thick wall and contains small foci of gas. This is highly concerning for infection/abscess. 4. The perihepatic fluid collection communicates with a moderate volume of abdom inopelvic ascites. 5. An infiltrative mass lesion is again seen in the expected location of the pancreatic head and a stent is noted within the pancreatic duct. 6. Irregular pulmonary nodules likely represent metastatic disease. 7. Question diffuse colonic wall thickening. Correlate clinically for evidence of a nonspecific proctocolitis. 8. Additional findings as above. ACT 112: Negative or not required by law. Electronically signed by: Rocky Hinds M.D. 05/30/2020 3:42 PM 05/31/20 09:00 US guide abscess drain Routine US guide abscess drain HISTORY: Right subdiaphragmatic fluid collection. Probable abscess. COMPARISON STUDY: Abdomen and pelvis CT 05/30/2020. PROCEDURE: The risks, benefits, and alternatives to an ultrasound-guided percutaneous drainage was discussed with the patient. Written informed consent was obtained. Preliminary imaging was performed with ultrasound to determine a safe needle entry site for the right subdiaphragmatic fluid collection/abscess. The right upper quadrant was prepped and draped in usual sterile fashion. 1% lidocaine was used for local anesthesia. A skin neck was made within the right upper quadrant. Using trocar technique, this was followed by placement of an 8 Wolof percutaneous drainage catheter into the subdiaphragmatic fluid collection under ultrasound guidance. The percutaneous drainage catheter was looped within the fluid collection and connected to a drainage bag. A total of 2.5 L of pus was removed. Post procedure imaging demonstrated near-complete removal of the abscess. No immediate complications. The patient was sent to the floor in stable condition. IMPRESSION: Successful ultrasound-guided percutaneous drainage of the right subdiaphragmatic abscess with removal of 2.5 L of pus. Electronically signed by: Reinier Little M.D. 05/31/2020 10:47 AM Hospital Course (1) Primary pancreatic adenocarcinoma: Follows with cancer care partnership with Lexi Corona PA-C and Dr. Bhakta Metastatic disease Was undergoing salvage chemotherapy Due to extent of metastatic disease and current infection, patient and family have decided to pursue palliative care and go home on hospice Patient being discharged [facility] agency engaged Palliative care consult completed and reviewed Appreciate Dr. Brooks's input (2) Ascites: Sent to radiology for paracentesis Patient with edgar pus Drain left in place and will need to be flushed daily with 10 cc of fluid. Instructions and discharge instruction set Call from laboratory -white cells present but unable to get cell count and differential Peritoneal fluid alpha strep not Enterococcus -mixed wound picture (3) Sepsis: Patient with peritoneal infection draining edgar pus Discontinue Zosyn and vancomycin and discharged home for hospice care (4) Chronic low back pain: Was scheduled for block. This clearly cannot be done while patient is septic Palliative care consulted. Patient being discharged home on hospice Discharged on morphine solution to be taken bucally as well as lorazepam to be taken buccally (5) Weakness: Secondary to metastatic pancreatic cancer, sepsis, malnourishment Disposition: Discharge home on hospice care Total Time Total Time Spent Total Time Spent (In Minutes): 35 Discharge Plan Discharge Items Patient Disposition: Hospice - Home Reason For Visit: SEPSIS, HEMANT Discharge Diagnosis: Sepsis secondary to peritoneal infection Condition on Discharge: Serious Activity: As commented below Activity Comment: As tolerated Lifting: Gradually increase as tolerated Bathing: Keep incision dry Bathing Comment: Sponge bath would be preferred secondary to drainage catheter Exercise/Sports: None Driving/Machine Use: No driving or use of machines Weightbearing: Full weightbearing Non-emergency contact: Primary Care Provider and Oncologist Call non-emergency contact if: you have any medication questions, your symptoms worsen, your pain is not controlled, your pain is worsening and you have a fever Follow-up/Referrals: Wilda Kenyon CRNP [Primary Care Provider] - Diet: Regular Addtl Attending Provider Instructions: Your admitted to the hospital with sepsis secondary to an infection in your belly. A drain was placed to help clear some of the pus from the infection. This drain is left in and will need to be flushed daily. You should use a 10 cc syringe and operate the valve to flush 5 cc towards the belly and 5 cc towards the bag. Hospice nurses will be able to help you with comfort and help you with managing the drain. If the drain should fall out simply cover it with a dressing and tape so it does not leak. Please contact the hospice nurse with any problems with pain, increased shortness of breath, or fever. Pending Studies at Discharge: No Stand-Alone Forms: [facility] Medications and DC Order Prescriptions: New olanzapine 2.5 mg Tablet 2.5 mg PO HS Qty: 30 RF: 0 morphine 10 mg/5 mL solution 5 mg buccal Q6H PRN (Reason: pain) Qty: 100 RF: 0 lorazepam 0.5 mg tablet 0.5 mg sublingual Q6H PRN (Reason: nausea and vomiting) Qty: 10 RF: 0 Continued furosemide [Lasix] 40 mg tablet 40 mg PO DAILY RF: 0 Creon 3,000-9,500- 15,000 unit capsule,delayed release(DR/EC) 1 cap PO TIDM Qty: 60 RF: 0 potassium chloride 20 mEq tablet,ER particles/crystals 20 meq PO TID RF: 0 hydrocodone-acetaminophen 5-325 mg tablet 1 tab PO Q6H PRN (Reason: Pain) RF: 0 gabapentin 300 mg capsule 300 mg PO TID RF: 0 Discontinued metformin 1,000 mg tablet 1,000 mg PO QAM Qty: 90 RF: 1 metformin 500 mg tablet 500 mg PO QPM Qty: 15 RF: 0 Discharge Orders: Discharge Order (Routine); Ordered 06/01/20 Ordered By: Rocky Hale Admission Data Admit Date/Time: 05/30/20 15:18 Attending Provider: Chris Correa Admit Provider: Mikey Saldana Primary Care Provider: Wilda Kenyon Other Providers: Mikey Saldana ; Eliezer Bhakta V. ; Maris Brooks ; [facility] Other Interventions: Discharge Summary Assessment (RN) Last Done: 06/01/20 18:19 Supervising Physician Co-Signing Physician Notes Patient seen and examined on the day of discharge. I agree with the discharge summary by Rocky BROWN. I have reviewed the chart including labs, imaging and plans for discharge. patient has less pain after drain placed, nearly 3L of purulent drainage plans to stop chemotherapy, transition to home hospice advanced pancreatic cancer focus on pain control, family can provide care at home with the help of hospice appreciate palliative care involvement in this case Coding Level of Care Code D/C Day Management >30 mins Diagnoses Primary pancreatic adenocarcinoma C25.9 Ascites R18.8 Ascites type: other type Sepsis A41.9; R65.20 Sepsis acute organ dysfunction status: with acute organ dysfunction Sepsis type: sepsis due to unspecified organism Severe sepsis acute organ dysfunction type: unspecified Severe sepsis shock status: without septic shock Chronic low back pain M54.5; G89.29 Back pain laterality: midline Sciatica presence: without sciatica Weakness R53.1 Time Spent (min) 35
[2020-06-03] MEDS ORDERED: VANCOMYCIN TROUGH ONE (05:30)
== END 2020-06-01 19:54 | disposition hospice, home (50) | DRG 871 ==
LOC: ED 09:30 → 2S 15:18 → SUATTDRO 15:18 → 2S 20:28